=== PATIENT | male | born 1950 | race Caucasian/White ===

== ENCOUNTER → 2017-08-08 | Outpatient (CLI) | payer MEDICARE, MEDICAID ==
--- NOTE | 2017-08-08 12:42 | RADIOLOGY REPORT (SQ) ---
EXAM DESCRIPTION: LUMBAR SPINE 2 VIEWS COMPLETED DATE/TIME: 08/08/2017 10:13 am REASON FOR STUDY: RADICULOPATHY, LUMBAR REGION M54.16 RADICULOPATHY, LUMBAR REGION COMPARISON: None. NUMBER OF VIEWS: Two views. TECHNIQUE: AP and lateral radiographic images acquired of the lumbar spine. LIMITATIONS: None. FINDINGS: MINERALIZATION: Normal. SEGMENTATION: Mild scoliosis. ALIGNMENT: Normal. VERTEBRAE: Maintain height. No fracture is seen. DISCS: Disc spaces are narrowed from L3-S1. Marginal osteophytes are present. POSTERIOR ELEMENTS: There appear to hypertrophic facet changes L3-S1. HARDWARE: None in the spine. PARASPINAL SOFT TISSUES: Normal. PELVIS: Intact as visualized. No fractures or worrisome bone lesions. SI joints intact. OTHER: No other significant finding. IMPRESSION: Multilevel degenerative disc disease, spondylosis, and facet arthropathy. TECHNICAL DOCUMENTATION: JOB ID: [id number] [employer]- All Rights Reserved
== END ==
LOC: OD 09:55
PROVIDERS: ATTEND Specialist
DX: M54.16 Radiculopathy, lumbar region (principal)
CPT/HCPCS: 72100

== ENCOUNTER 2017-08-18 14:12 | Inpatient (IN) | payer MEDICARE, MEDICAID ==
[2017-08-18] MEDS ORDERED: NORMAL SALINE 1000 ML 1,000 ML IV ONE ×2 (14:42→17:36)
--- NOTE | 2017-08-18 15:16 | RADIOLOGY REPORT (SQ) ---
EXAM DESCRIPTION: CHEST SINGLE VIEW COMPLETED DATE/TIME: 08/18/2017 3:06 pm REASON FOR STUDY: SOB COMPARISON: 01/07/2010. EXAM PARAMETERS: NUMBER OF VIEWS: One view. TECHNIQUE: Single frontal radiographic view of the chest acquired. RADIATION DOSE: NA LIMITATIONS: None. FINDINGS: LUNGS AND PLEURA: No opacities, masses or pneumothorax. No pleural effusion. MEDIASTINUM AND HILAR STRUCTURES: No masses. Contour normal. HEART AND VASCULAR STRUCTURES: Heart normal in size. Normal vasculature. BONES: No acute findings. HARDWARE: None in the chest. OTHER: No other significant finding. IMPRESSION: NO ACUTE RADIOGRAPHIC FINDING IN THE CHEST. TECHNICAL DOCUMENTATION: JOB ID: [id number]
[2017-08-18 15:24] LABS: ABSOLUTE BASOPHILS # (AUTO) 0.1 10^3/uL (0.0-0.2); ABSOLUTE MONOCYTES (AUTO) 0.9 10^3/uL (0.1-1.4); ABSOLUTE NEUT (AUTO) 6.5 10^3/uL (1.7-8.2); BASOPHILS % (AUTO) 1.1 % (0-2); EOSINOPHILS % (AUTO) 0.3 % (0-6); HEMATOCRIT 36.3 % (37.9-51.0); HEMOGLOBIN 12.4 g/dL (13.5-17.0); HGB HCT DIFFERENCE 0.9; LYMPHOCYTES % (AUTO) 11.5 % (13-45); MEAN CORPUSCULAR HEMOGLOBIN 28.7 pg (27.0-33.4); MEAN CORPUSCULAR HGB CONC 34.1 g/dL (32.0-36.0); MEAN CORPUSCULAR VOLUME 84 fl (80-97); MONOCYTES % (AUTO) 10.4 % (3-13); RED BLOOD COUNT 4.31 10^6/uL (4.35-5.55); RED CELL DISTRIBUTION WIDTH 16.6 % (11.5-14.0); SEGMENTED NEUTROPHILS % (AUTO) 76.7 % (42-78); WHITE BLOOD COUNT 8.4 10^3/uL (4.0-10.5)
[2017-08-18 15:33] LABS: ALANINE AMINOTRANSFERASE 58 U/L (21-72); ALBUMIN 3.7 g/dL (3.5-5.0); ALKALINE PHOSPHATASE 104 U/L (38-126); ANION GAP 15 (5-19); ASPARTATE AMINO TRANSFERASE 110 U/L (17-59); BILIRUBIN,DIRECT 0.7 mg/dL (0.0-0.4); BILIRUBIN,TOTAL 0.8 mg/dL (0.2-1.3); BLOOD UREA NITROGEN 61 mg/dL (7-20); CARBON DIOXIDE 20 mmol/L (22-30); CHLORIDE 101 mmol/L (98-107); CREATINE KINASE 37 U/L (55-170); CREATININE RESULT 4.76 mg/dL (0.52-1.25); GLUCOSE 63 mg/dL (75-110); LIPASE 94.5 U/L (23-300); SODIUM 135.6 mmol/L (137-145)
[2017-08-18 15:36] LABS: POTASSIUM 6.8 mmol/L (3.6-5.0)
[2017-08-18] MEDS ORDERED: CALCIUM GLUCONATE 1000 MG/10 ML INJ IV ONE (15:43)
[2017-08-18] MEDS ORDERED: ALBUTEROL SULFATE 0.083% NEB 2.5 MG/3 ML AMPUL NEB ONE (15:44)
--- NOTE | 2017-08-18 15:45 | ER Document Report ---
ED General - General Chief Complaint: Weakness Stated Complaint: WEAKNESS Time Seen by Provider: 08/18/17 14:40 Notes: Patient is a 66-year-old male, past medical history Hep C, presents with generalized weakness and shortness of breath over the past several days. He had spinal surgery about 1 month ago on his lumbar spine at an outside hospital. Since then, he noticed right leg swelling. He has not been eating or drinking much over the past few days because "water does not taste good." He follows with Dr. Moody for his liver and has an appointment tomorrow to discuss ascites management. He denies fevers, rash, nausea, vomiting, flank pain, chest pain, headache, neck stiffness, change in bowel or bladder, focal weakness, focal numbness or increased abdominal pain. TRAVEL OUTSIDE OF THE [place] IN LAST 30 DAYS: No - Related Data Allergies/Adverse Reactions: No Known Allergies Allergy (Verified 08/18/17 14:22) Home Medications: Current Home Medications Atorvastatin Calcium [Lipitor 10 mg Tablet] 10 mg PO QHS 08/18/17 [History] Cyclobenzaprine HCl [Flexeril 10 mg Tablet] 10 mg PO QHS 08/18/17 [History] Fentanyl [Duragesic 50 Mcg/Hr Transdermal Patch] 1 each TD Q3D 08/18/17 [History ] Insulin Glargine,Hum.rec.anlog [Lantus Insulin Inj 300 Unit/3 ml Pen] 23 unit SUBCUT QHS 08/18/17 [History] Lisinopril [Prinivil] 20 mg PO Q12 08/18/17 [History] Metformin HCl [Metformin HCl ER] 1,000 mg PO BIDACBS 08/18/17 [History] Milk Thistle 2,000 mg PO DAILY 08/18/17 [History] Multivitamin [Tab-A-Za] 1 tab PO DAILY 08/18/17 [History] Omeprazole Magnesium [Prilosec Otc] 20 mg PO DAILY 08/18/17 [History] Oxycodone HCl [Oxy-Ir 5 mg Tablet] 5 mg PO BID@1400,2200 08/18/17 [History] Oxycodone HCl [Oxy-Ir 5 mg Tablet] 10 mg PO DAILY 08/18/17 [History] Tiotropium [place] [Spiriva Handihaler 5 Cap/Kit (18 Mcg/Cap)] 1 cap IH DAILY [History] Past Medical History - General Information source: Patient - Social History Smoking Status: Unknown if Ever Smoked Family History: Reviewed & Not Pertinent - Past Medical History Cardiac Medical History: Reports: Hx DVT, Hx Hypertension Denies: Hx Coronary Artery Disease, Hx Heart Attack Pulmonary Medical History: Reports: Hx COPD Denies: Hx Asthma, Hx Bronchitis, Hx Pneumonia Neurological Medical History: Denies: Hx Cerebrovascular Accident, Hx Seizures Renal/ Medical History: Denies: Hx Peritoneal Dialysis Musculoskeltal Medical History: Reports Hx Arthritis - knees/hands Past Surgical History: Denies: Hx Pacemaker - Immunizations Hx Diphtheria, Pertussis, Tetanus Vaccination: Yes Review of Systems - Review of Systems Notes: REVIEW OF SYSTEMS: CONSTITUTIONAL: -fevers, -chills EENT: -eye pain, -difficulty swallowing, -nasal congestion CARDIOVASCULAR: -chest pain, -syncope. RESPIRATORY: -cough, -SOB GASTROINTESTINAL: -abdominal pain, -nausea, -vomiting, -diarrhea GENITOURINARY: -dysuria, -hematuria MUSCULOSKELETAL: -back pain, -neck pain SKIN: -rash or skin lesions. HEMATOLOGIC: -easy bruising or bleeding. LYMPHATIC: -swollen, enlarged glands. NEUROLOGICAL: -altered mental status or loss of consciousness, -headache, - neurologic symptoms PSYCHIATRIC: -anxiety, -depression. ALL OTHER SYSTEMS REVIEWED AND NEGATIVE. Physical Exam - Vital signs Vitals: Resp BP Pulse Ox 18 70/43 L 94 08/18/17 15:01 08/18/17 15:01 08/18/17 15:01 - Notes Notes: PHYSICAL EXAMINATION: GENERAL: Well-appearing, well-nourished and in no acute distress. HEAD: Atraumatic, normocephalic. EYES: Pupils equal round and reactive to light, extraocular movements intact, sclera anicteric, conjunctiva are normal. ENT: nares patent, oropharynx clear without exudates. Moist mucous membranes. NECK: Normal range of motion, supple without lymphadenopathy LUNGS: Breath sounds clear to auscultation bilaterally and equal. No wheezes rales or rhonchi. HEART: Tachycardia ABDOMEN: Soft, ascites, non-tender, normoactive bowel sounds. No guarding, no rebound. No masses appreciated. EXTREMITIES: Normal range of motion, no pitting or edema. No cyanosis. NEUROLOGICAL: Cranial nerves grossly intact. Normal speech, normal gait. Normal sensory and motor exams. PSYCH: Normal mood, normal affect. SKIN: Warm, Dry, normal turgor, no rashes or lesions noted. Course - Re-evaluation Re-evalutation: Patient initially hypotensive, tachycardic on triage. With recent surgery, RLE US ordered, which is negative for DVT. Patient is in acute renal failure with creatinine quadrupled from prior value and potassium 6.8. No EKG changes due to the hyperkalemia. He is also slightly hypoglycemia and he was fed. Provided him with IV fluids, calcium, bicarb and albuterol and renal US obtained. V/Q scan also obtained due to high suspicion for PE and elevated creatinine, which did not show evidence of PE. Suspect a component of his MICHEAL may be prerenal from his dehydration and not eating or drinking much over the past few days. With his liver issues, there may also be a component of hepatorenal syndrome. 08/18/17 17:[address] Lazaro (Sexual Assault Response Coordinator) about MICHEAL. She recommends continuing management and IVF. No further recommendations at this time. 08/18/17 18:[address] oBoth and she will admit patient as Inpatient to IMCU. - Vital Signs Vital signs: Temp Pulse Resp BP Pulse Ox 15 86/57 L 93 08/18/17 18:01 08/18/17 18:01 08/18/17 18:01 - Laboratory Result Diagrams: 08/18/17 14:57 08/18/17 14:57 Laboratory results interpreted by me: 08/18/17 08/18/17 08/18/17 14:57 14:57 14:57 RBC 4.31 L Hgb 12.4 L Hct 36.3 L RDW 16.6 H Lymphocytes % 11.5 L VBG pCO2 33.0 L VBG HCO3 18.1 L Sodium 135.6 L Potassium 6.8 H* Carbon Dioxide 20 L BUN 61 H Creatinine 4.76 H Est GFR ( Amer) 15 L Est GFR (Non-Af Amer) 12 L Glucose 63 L Direct Bilirubin 0.7 H AST 110 H Creatine Kinase 37 L Total Protein 6.0 L - Diagnostic Test Radiology reviewed: Image reviewed, Reports reviewed Radiology results interpreted by me: CXR: NAD RLE US: No DVT V/Q scan: low probability for PE Renal US: - EKG Interpretation by Me EKG shows normal: Sinus rhythm, [place], Intervals, QRS Complexes, ST-T Waves Rate: Tachycardia Discharge - Discharge Clinical Impression: MICHEAL (acute kidney injury), Hyperkalemia Condition: Serious Disposition: ADMITTED INPATIENT Admitting Provider: Hospitalist [facility] Admitted: IMCU Referrals: ANA LICEA MD [Primary Care Provider] - Follow up as needed
[2017-08-18 15:47] LABS: TROPONIN I < 0.012 ng/mL
[2017-08-18 16:13] LABS: VENOUS BLOOD BASE EXCESS -6.4 mmol/L; VENOUS BLOOD HCO3 18.1 mmol/L (20-32); VENOUS BLOOD PH 7.36 (7.30-7.42)
--- NOTE | 2017-08-18 16:40 | XCELERA REPORT ---
[address] [address] Lower Extremity Venous Evaluation Name: BRENDANMICHELLE LAW Age: 66 yrs Gender: Male : 1950 Patient Status: Emergency Patient Location: ER Study Date: 08/18/2017 03:08 PM Procedure: Color flow and duplex imaging of the veins of the right lower extremity as well as the left Common Femoral vein. Reason For Study: RLE swelling Ordering Physician: ADOLPH KONG Performed By: Michelle He Right Sided Venous Evaluation Normal vessel filling wall to wall, compression and augmentation as well as Colour flow down to the infrageniculate veins. Left Sided Venous Evaluation The left common femoral vein is fully compressible. Spontaneous and phasic flow is present in the left common femoral vein. Interpretation Summary No duplex evidence of DVT or obstruction in the right lower extremity nor in the left Common Femoral vein. : ADOLPH KONG > Elijah Mei
--- NOTE | 2017-08-18 16:54 | RADIOLOGY REPORT (SQ) ---
EXAM DESCRIPTION: NM LUNG PERFUSION SCAN COMPLETED DATE/TIME: 08/18/2017 4:44 pm REASON FOR STUDY: hypoxia, tachycardia, hypotension COMPARISON: None. RADIONUCLIDE AND DOSE: 5 millicuries TC-99m MAA The route of agent administration: Intravenous TECHNIQUE: Eight views of the lungs acquired following injection of MAA. LIMITATIONS: None. FINDINGS: PERFUSION: Perfusion images with normal homogenous activity and no wedge-shaped or segment al defects. OTHER: No other significant finding. IMPRESSION: There is a low probability of pulmonary embolus. TECHNICAL DOCUMENTATION: JOB ID: [id number] [employer]- All Rights Reserved
--- NOTE | 2017-08-18 17:44 | RADIOLOGY REPORT (SQ) ---
EXAM DESCRIPTION: U/S RETROPERITON (RENAL/AORTA) COMPLETED DATE/TIME: 08/18/2017 5:35 pm REASON FOR STUDY: MICHEAL COMPARISON: None. TECHNIQUE: Dynamic and static grayscale images acquired of the kidneys and bladder and recorded on P ACS. Additional selected color Doppler and spectral images recorded. LIMITATIONS: Study is limited somewhat due to the patient's body habitus. FINDINGS: RIGHT KIDNEY: 12.1 cm in length. Normal echogenicity. No solid or suspicious masses. No hydronephrosis. No calcifications. LEFT KIDNEY: 12 cm in length. Normal echogenicity. No solid or suspicious masses. No hydroneph rosis. No calcifications. BLADDER: There is a questionable hypoechoic area in the bladder of uncertain etiology or significance . OTHER FINDINGS: Pelvic ascitic fluid is identified. IMPRESSION: No significant renal abnormalities were identified. Pelvic ascitic fluid is identified. Other findings as noted above TECHNICAL DOCUMENTATION: JOB ID: [id number] [employer]- All Rights Reserved
[2017-08-18] MEDS ORDERED: DEXTROSE 50%-WATER 25 GM/50 ML DISP.SYRIN IV ONE (18:30)
[2017-08-18] MEDS ORDERED: SODIUM BICARBONATE 8.4% INJ 50 MEQ/50 ML DISP.SYRIN IV ONE (18:30)
[2017-08-18] MEDS ORDERED: LIDOCAINE 2% URO-JET 5 ML KIT MM ONE (18:30)
[2017-08-18] MEDS ORDERED: LEVALBUTEROL HCL NEB 1.25 MG/3 ML AMPUL NEB PRN (18:53)
[2017-08-18] MEDS ORDERED: NORMAL SALINE 1000 ML 2,000 ML IV ONE (19:00)
[2017-08-18] MEDS ORDERED: FENTANYL 50 MCG/HR PATCH.TD72 TD SCH (19:00)
[2017-08-18] MEDS ORDERED: INSULIN LISPRO 100 UNIT/ML 3 ML VIAL SUBCUT PRN (19:29)
[2017-08-18] MEDS ORDERED: GLUCAGON,HUMAN RECOMB 1 MG INJ IM PRN (19:29)
[2017-08-18] MEDS ORDERED: DEXTROSE 50%-WATER 25 GM/50 ML DISP.SYRIN IV PRN ×2 (19:29)
[2017-08-18] MEDS ORDERED: DEXTROSE 40% GEL 15 GM TUBE PO PRN ×2 (19:29)
[2017-08-18] MEDS ORDERED: CEFTRIAXONE 2 GM/D5W RTU 2 GM/50 ML RTUPB IV SCH (20:00)
[2017-08-18] MEDS: IPRATROPIUM/ALBUTEROL 0.5-2.5 MG/3 ML AMPUL NEB SCH (20:26)
[2017-08-18] MEDS ORDERED: SODIUM POLYSTYRENE SULFONATE 15 GM/60 ML PO ONE (20:30)
[2017-08-18] MEDS: ALBUMIN HUMAN 50 ML IV SCH ×3 (20:30→23:18)
[2017-08-18] MEDS: NORMAL SALINE 1000 ML 1,000 ML IV PRN (20:31)
--- NOTE | 2017-08-18 20:32 | HISTORY AND PHYSICAL E ---
History and Physical NAME: MICHELLE CARDONA : 1950 AGE: 66Y ADMITTED: 08/18/2017 ROOM: ED16 CHIEF COMPLAINT: Shortness of breath and weakness. HISTORY OF PRESENT ILLNESS: The patient is a 66-year-old male with a history of hepatitis C, hypertension, chronic back pain, diabetes mellitus, who recently had back surgery on July 04. The patient did have a minor complication of his back surgery where he had a spinal fluid leak. However, upon discharge from the hospital, his reports he was doing well for approximately 1 to 2 weeks, but over the last several weeks he has not been eating or drinking very well. He reports that he has been having emesis even with taking his medications. He reports that he has been having loose stool yesterday that was yellow without hematochezia or melena. He denies any hemoptysis or hematemesis. He reports subjective fever and chills and that he has had a cough productive of brown sputum. The patient is found to be hypotensive in the emergency department with a blood pressure of 70/43 with a creatinine of 4.76 and a potassium of 6.8. The patient underwent ultrasound of his right lower extremity in the emergency department which revealed no DVT, a VQ scan which revealed low probability for PE, a chest x-ray which revealed nothing acute, and a renal ultrasound which revealed ascites and a questionable area of hypoechoic area in his bladder of undetermined significance. A Moreno catheter was placed in his bladder which returned over 400 mL of tea-colored urine. The patient is referred to the hospitalist service for admission. PAST MEDICAL HISTORY: The patient's past medical history is significant for: 1. Hepatitis C. 2. Hypertension. 3. Chronic back pain. 4. Neuropathy. 5. Insulin-dependent diabetes mellitus. 6. 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 PAST SURGICAL HISTORY: His past surgical history is extensive and includes: 1. Back surgeries x2. 2. Rotator cuff repair. 3. Hernia x3. 4. Appendectomy. 5. Neck fusion. 6. 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 The patient had a portion of his clavicle removed for the chest surgery for the osteomyelitis. SOCIAL HISTORY: He quit smoking on May 25, but he was a pack per day smoker for more than 40 years. He currently does not drink any alcohol, and he does not use illicit drugs. FAMILY HISTORY: His mother of breast cancer. His father had diabetes mellitus. ALLERGIES: He has no known drug allergies. CODE STATUS: His code status is FULL CODE. His is his surrogate decision maker. MEDICATIONS: The patient's home medications include: 1. Fentanyl patch. 2. Lipitor. 3. Lisinopril. 4. Metformin. 5. Oxycodone. 6. Spiriva. 7. Flexeril. 8. Multivitamin. 9. Lantus. REVIEW OF SYSTEMS: CONSTITUTIONAL: He admits to subjective fevers and chills. He denies weight loss, weight gain, or headache. HEENT: He denies eye pain, difficulty swallowing, or nasal congestion. CARDIOVASCULAR: He denies chest pain or syncope. He admits to lower extremity edema. RESPIRATORY: He admits to occasional cough and admits to shortness of breath. GASTROINTESTINAL: He admits to abdominal pain, nausea, vomiting, and diarrhea. He denies constipation. GENITOURINARY: He denies difficulty with urination. MUSCULOSKELETAL: He admits to chronic neck and back pain. SKIN: He denies any rashes or lesions. HEMATOLOGY: He denies easy bleeding or bruising. LYMPHATIC: He denies swollen or enlarged lymph glands. NEUROLOGIC: He denies weakness, numbness, dizziness, dysphagia, dysarthria, or ataxia. PSYCHIATRIC: He denies depression or anxiety. PHYSICAL EXAMINATION: VITAL SIGNS: The patient's temperature is not recorded. His pulse is 116. His blood pressure is 89/52. Respiratory rate of 12. Saturation 94% on room air. GENERAL: The patient is awake, alert, and oriented x3. He is appropriate. He is answering questions appropriately. He is acutely and chronically ill appearing and pale. HEENT: He is atraumatic/normocephalic. His pupils are equal, round, and reactive to light and accommodation. His extraocular movements are intact. He has no icterus. His mucosa is dry. NECK: His neck is supple. His trachea is midline. He has no lymphadenopathy. He has no carotid bruit. CHEST: Reveals a chest-wall deformity and clavicular step-off on the left. PULMONARY: Examination is clear to auscultation bilaterally with prolonged expiratory phase. No wheezing, rhonchi, rales are noted. CARDIOVASCULAR: Regular rate and rhythm without appreciable murmur, rub, or gallop. ABDOMEN: Protuberant but soft. He has gross ascites as well as caput medusae. His abdomen is diffusely tender to palpation without rebound, rigidity, or guarding. GENITOURINARY: The patient has normal male external genitalia, and Moreno catheter in place is draining tea-colored urine. RECTAL: Examination is deferred. MUSCULOSKELETAL: Examination reveals no joint swelling or deformity. The patient's musculature in his left lower extremity is significantly smaller than in the right secondary to prior partial paralysis from surgery. VASCULAR: The patient's greater than is greater than 10 seconds, and he has 1+ pulses bilaterally. EXTREMITIES: Reveal no cyanosis. He has 1+ bilateral lower extremity edema and mild clubbing. NEUROLOGIC: The patient is awake, alert, and oriented x3. His cranial nerves are grossly intact without focal deficits. PSYCHIATRIC: He is awake, alert, and appropriate. He has normal mood and affect. DIAGNOSTIC DATA: Laboratory values are as follows: Sodium of 136, potassium of 6.8, chloride of 101, CO2 of 20, BUN of 51, creatinine of 4.7, glucose is 63, lactate of 1.4, calcium of 10, total bilirubin 0.8, direct of 0, AST of 110, ALT of 58, alkaline phosphatase is 104, CK of 37, troponin of less than 0.012, proBNP of 212, total protein is 6, albumin of 3.7, lipase of 94.5. VBG reveals a pH of 7.36, pCO2 of 33, and a bicarbonate of 18. White count of 8.4, hemoglobin of 12.4, hematocrit of 36.3, and platelets of 386,000. IMPRESSION: This is a 66-year-old man with: 1. Acute renal failure. 2. Hyperkalemia. 3. Anemia. 4. Metabolic acidosis. 5. Hypotension. 6. Diabetes mellitus. 7. Cirrhosis secondary to hepatitis C. 8. Chest opiate dependence. 9. Possible SBP. 10. Possible pneumonia. 11. Obesity. PLAN: 1. For patient's acute renal failure, at this time this is likely secondary to intravascular volume depletion. We will consult Dr. Lazaro as there is concern for hepatorenal syndrome in this patient. We will aggressively hydrate patient as tolerated and repeat his BMP. The patient has already received calcium gluconate. We will give the patient sodium bicarbonate and Kayexalate. The patient was also found to be hypoglycemic on admission. We will give him D50 at this time. The patient has also received albuterol breathing treatment. We will repeat his BNP at 10 o'clock. 2. For patient's possible sepsis, my concern here is that this patient is hypotensive, tachycardic, and reports symptoms of fevers and chills, albeit subjective, along with a cough productive of brown sputum. He also reports significant abdominal tenderness. Will cover patient for both healthcare-associated pneumonia and SBP with Rocephin and Zyvox. Obtain blood, urine, and sputum cultures and monitor patient's improvement in symptomatology. 3. For his cirrhosis, we will consult Dr. Holloway, who is his primary GI physician and consider paracentesis tomorrow if tolerated. We will obtain a PT/INR to assess patient's synthetic function. 4. For his hyperkalemia, he has been given Kayexalate, and we will repeat his labs. We will monitor him on telemetry. 5. For his DVT prophylaxis, he will receive heparin. 6. For GI prophylaxis, he will receive Prevacid. 7. For his code status, again he is a FULL CODE, and his is his surrogate decision maker. Total time spent with patient including physical examination, coordination of care, discussion with patient, and formulation of this plan was 45 minutes of Critical Care Time. DICTATING PHYSICIAN: JOSSUE WRIGHT M.D. [id number] PHY#: [id number] ID: [id number] JOB#: [id number] ACCT: [id number] cc:JOSSUE WRIGHT M.D. > MTDD
[2017-08-18] MEDS: DEXTROSE 5%-WATER 250 ML with NOREPINEPHRINE BITARTRATE 4 MG IV PRN ×2 (21:37)
[2017-08-18] MEDS: GUAIFENESIN 600 MG TABLET.SA PO SCH (21:38)
[2017-08-18] MEDS: ACETAMINOPHEN 325 MG TABLET PO PRN (21:39)
[2017-08-18] MEDS: PIPERACILLIN SODIUM/TAZOBACTAM 2.25 GM in NORMAL SALINE 50 ML IV SCH (21:39)
[2017-08-18] MEDS: HEPARIN SOD (PORCINE) 5,000 UNIT/ML 1 ML SYRINGE SUBCUT SCH (21:43)
[2017-08-18 22:05] LABS: ANION GAP 11 (5-19); BLOOD UREA NITROGEN 59 mg/dL (7-20); CALCIUM 8.8 mg/dL (8.4-10.2); CARBON DIOXIDE 18 mmol/L (22-30); CHLORIDE 107 mmol/L (98-107); CREATININE RESULT 4.31 mg/dL (0.52-1.25); GLUCOSE 94 mg/dL (75-110); SODIUM 136.1 mmol/L (137-145)
[2017-08-18] MEDS: LINEZOLID 600 MG TABLET PO SCH (22:17)
[2017-08-18 22:21] LABS: POTASSIUM 4.9 mmol/L (3.6-5.0)
[2017-08-18 22:49] LABS: APPEARANCE,URINE CLOUDY; BILIRUBIN,URINE NEGATIVE (NEGATIVE); GLUCOSE, URINE NEGATIVE (NEGATIVE); KETONES,URINE NEGATIVE (NEGATIVE); LEUKOCYTE ESTERASE,URINE NEGATIVE (NEGATIVE); NITRITE,URINE NEGATIVE (NEGATIVE); PROTEIN,URINE NEGATIVE (NEGATIVE); URINE SPECIFIC GRAVITY 1.023
--- NOTE | 2017-08-18 23:05 | Operative Report ---
Operative Report DATE OF SURGERY: 08/18/17 PREOPERATIVE DIAGNOSIS: Hyperkalemia critical need for central venous access POSTOPERATIVE DIAGNOSIS: Same OPERATION: Right subclavian triple-lumen central venous catheter placement SURGEON: JACEK BOOTHE ANESTHESIA: Local TISSUE REMOVED OR ALTERED: None COMPLICATIONS: None ESTIMATED BLOOD LOSS: Minimal INTRAOPERATIVE FINDINGS: None PROCEDURE: Informed consent was obtained. Procedure was done at the patient's bedside. Patient's right chest and neck were prepped and draped in usual sterile fashion. Local anesthetic was administered. The right subclavian vein was entered without difficulty and guidewire was placed. Triple-lumen central venous catheter was placed via the Seldinger technique. It withdrew blood and flushed easily. It was sutured in place. Stat portable chest x-ray was ordered. Patient tolerated procedure well with no apparent complications.
--- NOTE | 2017-08-18 23:25 | RADIOLOGY REPORT (SQ) ---
EXAM DESCRIPTION: CHEST SINGLE VIEW COMPLETED DATE/TIME: 08/18/2017 11:08 pm REASON FOR STUDY: Central Line placement COMPARISON: 08/18/2017 EXAM PARAMETERS: NUMBER OF VIEWS: One view. TECHNIQUE: Single frontal radiographic view of the chest acquired. RADIATION DOSE: NA LIMITATIONS: None. FINDINGS: LUNGS AND PLEURA: No opacities, masses or pneumothorax. No pleural effusion. MEDIASTINUM AND HILAR STRUCTURES: No masses. Contour normal. HEART AND VASCULAR STRUCTURES: Heart normal in size. Normal vasculature. BONES: No acute findings. HARDWARE: Central line is seen with its tip at the level of the superior vena cava OTHER: No other significant finding. IMPRESSION: Central line with its tip at the level of the superior vena cava. No pneumothorax is se en. Other findings as noted above TECHNICAL DOCUMENTATION: JOB ID: [id number]
[2017-08-19] MEDS: ALBUMIN HUMAN 50 ML IV SCH ×5 (00:23→16:19)
[2017-08-19] MEDS: IPRATROPIUM/ALBUTEROL 0.5-2.5 MG/3 ML AMPUL NEB SCH ×4 (02:19→19:46)
[2017-08-19 03:52] LABS: ABSOLUTE BASOPHILS # (AUTO) 0.1 10^3/uL (0.0-0.2); ABSOLUTE MONOCYTES (AUTO) 0.8 10^3/uL (0.1-1.4); ABSOLUTE NEUT (AUTO) 4.6 10^3/uL (1.7-8.2); EOSINOPHILS % (AUTO) 0.5 % (0-6); HEMATOCRIT 29.2 % (37.9-51.0); HGB HCT DIFFERENCE 0.2; LYMPHOCYTES % (AUTO) 15.2 % (13-45); MEAN CORPUSCULAR HEMOGLOBIN 28.7 pg (27.0-33.4); MEAN CORPUSCULAR HGB CONC 33.7 g/dL (32.0-36.0); MEAN CORPUSCULAR VOLUME 85 fl (80-97); MONOCYTES % (AUTO) 12.4 % (3-13); RED BLOOD COUNT 3.43 10^6/uL (4.35-5.55); RED CELL DISTRIBUTION WIDTH 16.6 % (11.5-14.0); SEGMENTED NEUTROPHILS % (AUTO) 70.9 % (42-78); WHITE BLOOD COUNT 6.5 10^3/uL (4.0-10.5)
[2017-08-19 03:53] LABS: HEMOGLOBIN 9.8 g/dL (13.5-17.0)
--- NOTE | 2017-08-19 03:57 | EKG REPORT ---
SEVERITY:- BORDERLINE ECG - SINUS TACHYCARDIA LOW VOLTAGE THROUGHOUT : Confirmed by: Angela Morales MD 19-Aug-2017 03:56:56
[2017-08-19 04:00] LABS: ALANINE AMINOTRANSFERASE 48 U/L (21-72); ALBUMIN 3.1 g/dL (3.5-5.0); ALKALINE PHOSPHATASE 74 U/L (38-126); ANION GAP 12 (5-19); ASPARTATE AMINO TRANSFERASE 79 U/L (17-59); BILIRUBIN,DIRECT 0.6 mg/dL (0.0-0.4); BILIRUBIN,TOTAL 0.7 mg/dL (0.2-1.3); BLOOD UREA NITROGEN 55 mg/dL (7-20); CALCIUM 8.8 mg/dL (8.4-10.2); CARBON DIOXIDE 19 mmol/L (22-30); CHLORIDE 107 mmol/L (98-107); CREATININE RESULT 4.08 mg/dL (0.52-1.25); GLUCOSE 115 mg/dL (75-110); POTASSIUM 5.1 mmol/L (3.6-5.0); SODIUM 137.8 mmol/L (137-145); TOTAL PROTEIN 5.1 g/dL (6.3-8.2)
[2017-08-19] MEDS: NORMAL SALINE 1000 ML 1,000 ML IV PRN ×2 (04:05→11:23)
[2017-08-19] MEDS: HEPARIN SOD (PORCINE) 5,000 UNIT/ML 1 ML SYRINGE SUBCUT SCH (06:24)
[2017-08-19] MEDS: LANSOPRAZOLE 15 MG TAB.RAP.DR PO SCH ×2 (06:24→18:00)
[2017-08-19] MEDS: PIPERACILLIN SODIUM/TAZOBACTAM 2.25 GM in NORMAL SALINE 50 ML IV SCH ×3 (06:25→21:04)
[2017-08-19] MEDS ORDERED: NOREPINEPHRINE BITARTRATE INJ/PF 4 MG/4 ML SDV IV ONE (06:30)
[2017-08-19] MEDS: ACETAMINOPHEN 325 MG TABLET PO PRN (06:52)
[2017-08-19] MEDS ORDERED: LANSOPRAZOLE 15 MG TAB.RAP.DR PO SCH (10:00)
[2017-08-19] MEDS: GUAIFENESIN 600 MG TABLET.SA PO SCH ×2 (10:25→21:03)
[2017-08-19] MEDS: FENTANYL 50 MCG/HR PATCH.TD72 TD SCH (10:25)
[2017-08-19] MEDS: LINEZOLID 600 MG TABLET PO SCH ×2 (10:26→21:04)
[2017-08-19] MEDS: TIOTROPIUM BROMIDE DPI 5 CAP/KIT (18 MCG/CAP) IH SCH (10:26)
[2017-08-19] MEDS ORDERED: LIDOCAINE 1% INJ-PF (10 MG/ML) 30 ML SDV ONE (13:20)
--- NOTE | 2017-08-19 14:21 | RADIOLOGY REPORT (SQ) ---
EXAM DESCRIPTION: U/S ABD PARACENTESIS COMPLETED DATE/TIME: 08/19/2017 2:11 pm REASON FOR STUDY: SBP COMPARISON Bilateral renal ultrasound 08/18/2017 LIMITATIONS: None. PROCEDURE: After obtaining informed consent, the patient was brought to the ultrasound suite. The p rocedure was performed with the patient on a gurney. Ultrasound was used to identify a prominent poc ket of ascites in the right lower quadrant. An appropriate access site was selected. The patient wa s prepped and draped in usual sterile fashion. The access site was anesthetized with 6 mL 1% lidoca ine. A Cfxb-R-Mymrverw needle was advanced into the fluid. After aspiration of fluid the needle, th e catheter was advanced off the needle into the fluid. A total of 5,550 mL of clear straw-colored fl uid was removed. The patient tolerated the procedure well left the department in satisfactory conditi on. Specimens were sent for testing IMPRESSION: Successful ultrasound-guided diagnostic and therapeutic paracentesis COMMENT: Patient medication list reviewed: Yes- Quality ID# [id number]:Eligible professional attests to doc umenting in the medical record they obtained, updated, or reviewed the patient's current medications. Quality ID #76: The patient was prepped and draped using maximum sterile barrier technique including cap, mask, sterile gown, sterile gloves, a large sterile sheet, hand hygiene, and 2% Chlorhexidine fo r cutaneous antisepsis. When ultrasound is used, sterile ultrasound techniques are followed requiring sterile gel and sterile probes. Quality ID #[id number]: Final reports for procedures using fluoroscopy that document radiation exposure farhan tonny, or exposure time and number of fluorographic images (if radiation exposure indices are not avail able) TECHNICAL DOCUMENTATION: JOB ID: [id number] [employer]- All Rights Reserved
[2017-08-19 15:10] LABS: FLUID APPEARANCE CLOUDY; FLUID RBC DILUENT USED SALINE; FLUID RBC DILUTION FACTOR 11; FLUID RBC SIDE 1 48; FLUID RBC SIDE 2 44; TOTAL RBC SQUARES COUNTED FLD 225
[2017-08-19] MEDS: OXYCODONE HCL IR 5 MG TABLET PO PRN ×2 (15:20→21:03)
--- NOTE | 2017-08-19 15:24 | PDOC CONSULTATION ---
Consultation Consult Date: 08/19/17 Attending physician:: JOSSUE WRIGHT Consult reason:: I was asked by Dr. Wright to see the patient because of acute kidney injury. History of Present Illness Admission Date/PCP: 08/18/17 18:53 ANA LICEA MD History of Present Illness: MICHELLE CARDONA is a 66 year old male with history of hepatitis C, hypertension , diabetes mellitus, chronic back pain, who was admitted yesterday because of shortness of breath, weakness in acute renal failure. Patient underwent back surgery in July 04 and did well for a while postoperatively. However for the last 1-2 weeks the patient started to deteriorate starting with very decreased appetite and a salty taste in his mouth. said patient is eating very minimal solids and cannot really drink much fluids because he has this nausea and vomiting. There was also a note of increasing abdominal girth and leg swelling. Patient denies any jaundice, fever nor abdominal pain but there is abdominal discomfort. He has constipation but no diarrhea. Patient related that he had interferon treatment years ago around in 2009 for hepatitis C. He has never had any liver issues since then until now. Patient also noted that starting last week his urine output has greatly diminished and he has dark urine. His urine was noted to be very dark tea colored yesterday in the emergency room. also noted that during the preoperative evaluation for the back surgery patient was noted to have low blood pressure of around 95/42. They did not check his blood pressure at home. Patient has become very weak, very shaky, and progressively has worsening shortness of breath with minimal exertion. Upon presentation patient was found to be very hypotensive with blood pressure of 70/43. Patient was given IV fluid boluses so far as of this point he received about 4 L of IV fluids starting yesterday. His electrolytes and kidney function were also abnormal. His BUN was 61, creatinine 4.76 with estimated GFR of 12, potassium of 6.8, and CO2 of 20. Today he has a BUN of 55 creatinine 4.08 estimated GFR 15 potassium of 5.1 and CO2 of 19. Previous records on December 15, 2015 showed a BUN of 23 and creatinine of 1.01 with estimated GFR of greater than 60. Patient denies any known kidney problems in the past. He denies any history of kidney stones. Urinalysis did not show any proteinuria except for just a small amount of blood significant urobilinogen and significant hyaline casts. Today he just underwent paracentesis just before I started seeing him and they were able to obtain about 5.5 L of ascitic fluid. Patient felt a lot better after the paracentesis. Patient also noted that patient has had lower extremity swelling which is currently much better. Patient is nonoliguric and is making some urine. The urine today is not as dark as was described yesterday. Past Medical History Cardiac Medical History: Reports: Hypertension-primary Pulmonary Medical History: Reports: Chronic Obstructive Pulmonary Disease (COPD) Neurological Medical History: Reports: Other - Left foot drop secondary to previous back surgery Endocrine Medical History: Reports: Diabetes Mellitus Type 2 Complications of Diabetes: Reports: Autonomic Neuropathy GI Medical History: Reports: Other Musculoskeltal Medical History: Reports: Arthritis - knees/hands, Other - Chronic back pain after a work-related injury in 1983 requiring surgeries Psychiatric Medical History: Denies: Depression Infectious Medical History: Reports: Hepatitis C Past Surgical History Past Surgical History: Reports: Appendectomy, Herniorrhaphy - 3 times, Orthopedic Surgery - Left rotator cuff surgery, neck fusion, chest surgery due to osteomyelitis, Other - Back surgeries 7 Social History Information Source: Patient Lives with: Spouse/Significant other Smoking Status: Former Smoker - [id number] history of smoking Frequency of Alcohol Use: None Hx Recreational Drug Use: No Family History Family History: DM - Father, End Stage Renal Disease - Brother who was on dialysis, Malignancy - Mother of breast cancer, liver cancer on his father , lung cancer in his brother Parental Family History Reviewed: Yes Children Family History Reviewed: Yes Sibling(s) Family History Reviewed.: Yes Medication/Allergy Home Medications: Atorvastatin Calcium [Lipitor 10 mg Tablet] 10 mg PO QHS 08/18/17 Cyclobenzaprine HCl [Flexeril 10 mg Tablet] 10 mg PO QHS 08/18/17 Fentanyl [Duragesic 50 Mcg/Hr Transdermal Patch] 1 each TD Q3D 08/18/17 Insulin Glargine,Hum.rec.anlog [Lantus Insulin Inj 300 Unit/3 ml Pen] 23 unit SUBCUT QHS 08/18/17 Lisinopril [Prinivil] 20 mg PO Q12 08/18/17 Metformin HCl [Metformin HCl ER] 1,000 mg PO BIDACBS 08/18/17 Milk Thistle 2,000 mg PO DAILY 08/18/17 Multivitamin [Tab-A-Za] 1 tab PO DAILY 08/18/17 Omeprazole Magnesium [Prilosec Otc] 20 mg PO DAILY 08/18/17 Oxycodone HCl [Oxy-Ir 5 mg Tablet] 5 mg PO BID@1400,2200 08/18/17 Oxycodone HCl [Oxy-Ir 5 mg Tablet] 10 mg PO DAILY 08/18/17 Tiotropium Lowry [Spiriva Handihaler 5 Cap/Kit (18 Mcg/Cap)] 1 cap IH DAILY Allergies/Adverse Reactions: No Known Allergies Allergy (Verified 08/18/17 14:22) Review of Systems All systems: reviewed and no additional remarkable complaints except as stated Review of Systems: Constitutional: ABSENT: chills, fatigue, fever(s), headache(s), weight gain, weight loss; admits anorexia and poor appetite Eyes: ABSENT: visual disturbances Ears: ABSENT: hearing changes Cardiovascular: ABSENT: chest pain, orthropnea, palpitations; admits dyspnea on exertion and at rest and lower extremity edema Respiratory: ABSENT: cough, dyspnea, hemoptysis Gastrointestinal: ABSENT: abdominal pain, diarrhea, hematemesis, hematochezia; admits nausea, vomiting and constipation Genitourinary: ABSENT: dysuria, hematuria; admits decreased urine output Musculoskeletal: ABSENT: joint swelling Integumentary: ABSENT: rash, wounds Neurological: ABSENT: abnormal gait, abnormal speech, confusion, dizziness, focal weakness, numbness, syncope Psychiatric: ABSENT: anxiety, depression Endocrine: ABSENT: cold intolerance, heat intolerance, polydipsia, polyuria Hematologic/Lymphatic: ABSENT: easy bleeding, easy bruising, lymphadenopathy Physical Exam Vital Signs: Temp Pulse Resp BP Pulse Ox 97.9 F 96 11 L 118/67 96 08/19/17 14:00 08/19/17 14:15 08/19/17 14:19 08/19/17 14:19 08/19/17 14:19 Intake & Output 08/18/17 08/19/17 08/20/17 06:59 06:59 06:59 Intake Total 1742 Output Total 680 305 Balance 1062 -305 Weight 106.6 kg Exam: General appearance: no acute distress, cooperative, well-developed, well- nourished Head exam: PRESENT: atraumatic, normocephalic Eye exam: PRESENT: Conjunctiva pale, EOMI, PERRLA. ABSENT: conjunctival injection, scleral icterus Mouth exam: PRESENT: moist, neck supple, tongue midline Neck exam: PRESENT: full ROM. ABSENT: carotid bruit, JVD, lymphadenopathy, thyromegaly Respiratory exam: PRESENT: Slightly coarse breath sound auscultation bilaterally. ABSENT: rales, rhonchi, stridor, wheezes Cardiovascular exam: PRESENT: RRR, +S1, +S2. ABSENT: systolic murmur Pulses: PRESENT: normal radial pulses, normal dorsalis pedis pulses GI/Abdominal exam: PRESENT: normal bowel sounds, soft. Positive abdominal distention which is improved after paracentesis, there is a palpable epigastric mass which could either be a lobe of the liver ABSENT: guarding, tenderness Rectal exam: deferred Extremities exam: PRESENT: full ROM. ABSENT: calf tenderness, pedal edema Musculoskeletal: PRESENT: full ROM. ABSENT: deformity Neurological exam: PRESENT: alert, Awake, Oriented to person, Oriented to place , Oriented to time, reflexes normal, CN II-XII grossly intact. Positive left foot drop ABSENT: motor sensory deficit Psychiatric exam: PRESENT: appropriate affect, normal mood. ABSENT: homicidal ideation, suicidal ideation Skin exam: PRESENT: intact, dry, warm. ABSENT: rash Results Laboratory Results: 08/19/17 03:35 08/19/17 03:35 08/18/17 08/18/17 08/19/17 21:35 21:35 03:35 WBC 6.5 RBC 3.43 L Hgb 9.8 L D Hct 29.2 L MCV 85 MCH 28.7 MCHC 33.7 RDW 16.6 H Plt Count 277 Seg Neutrophils % 70.9 Lymphocytes % 15.2 Monocytes % 12.4 Eosinophils % 0.5 Basophils % 1.0 Absolute Neutrophils 4.6 Absolute Lymphocytes 1.0 Absolute Monocytes 0.8 Absolute Eosinophils 0.0 Absolute Basophils 0.1 Sodium 136.1 L Potassium 4.9 D Chloride 107 Carbon Dioxide 18 L Anion Gap 11 BUN 59 H Creatinine 4.31 H Est GFR ( Amer) 17 L Est GFR (Non-Af Amer) 14 L Glucose 94 Calcium 8.8 Total Bilirubin AST ALT Alkaline Phosphatase Total Protein Albumin Blood Type O POSITIVE Antibody Screen NEGATIVE 08/19/17 03:35 WBC RBC Hgb Hct MCV MCH MCHC RDW Plt Count Seg Neutrophils % Lymphocytes % Monocytes % Eosinophils % Basophils % Absolute Neutrophils Absolute Lymphocytes Absolute Monocytes Absolute Eosinophils Absolute Basophils Sodium 137.8 Potassium 5.1 H Chloride 107 Carbon Dioxide 19 L Anion Gap 12 BUN 55 H Creatinine 4.08 H Est GFR ( Amer) 18 L Est GFR (Non-Af Amer) 15 L Glucose 115 H Calcium 8.8 Total Bilirubin 0.7 AST 79 H ALT 48 Alkaline Phosphatase 74 Total Protein 5.1 L Albumin 3.1 L Blood Type Antibody Screen 08/18/17 08/19/17 08/19/17 21:35 03:35 12:33 Troponin I < 0.012 < 0.012 < 0.012 Impressions: Chest X-Ray 08/18/17 14:41 IMPRESSION: NO ACUTE RADIOGRAPHIC FINDING IN THE CHEST. Lung Scan-VQ NM 08/18/17 15:42 IMPRESSION: There is a low probability of pulmonary embolus. Renal Ultrasound 08/18/17 15:44 IMPRESSION: No significant renal abnormalities were identified. Pelvic ascitic fluid is identified. Other findings as noted above Paracentesis Ultrasound 08/19/17 00:00 IMPRESSION: Successful ultrasound-guided diagnostic and therapeutic paracentesis Assessment & Plan - Diagnosis (1) MICHEAL (acute kidney injury) Is this a current diagnosis for this admission?: Yes Plan: Patient does not have any proteinuria with only very small microhematuria and a lot of hyaline casts in the urine. This indicated the patient most likely has initially acute prerenal azotemia due to severe intravascular volume depletion which could have led to acute tubular necrosis associated with severe hypotension. Patient is currently nonoliguric. He is responding well to IV fluids. Agree to continue current IV fluid hydration. Hold any nephrotoxic medications including lisinopril and metformin. Patient does not need any emergent renal replacement therapy at this time. Continuing to monitor kidney function, electrolytes and urine output. (2) Acute renal tubular necrosis Is this a current diagnosis for this admission?: Yes (3) Hyperkalemia Is this a current diagnosis for this admission?: Yes Plan: Improved. (4) Ascites Is this a current diagnosis for this admission?: Yes Plan: Status post paracentesis. Agree with albumin infusion. (5) Hepatitis C Is this a current diagnosis for this admission?: Yes (6) Metabolic acidosis Is this a current diagnosis for this admission?: Yes Plan: This is due to acute kidney injury and partly due to IV fluid hydration. (7) Hypoalbuminemia Is this a current diagnosis for this admission?: Yes Plan: Most likely secondary to his hepatitis C and poor oral intake. (8) Hypotension Is this a current diagnosis for this admission?: Yes Plan: Currently improved with IV fluid hydration. (9) Diabetes mellitus type 2 in nonobese Is this a current diagnosis for this admission?: Yes - Notes Notes: Thank you very much for this consultation. I will follow the patient with you. - Time Time Spent: Greater than 70 Minutes
[2017-08-19 15:52] LABS: PROTHROMBIN TIME 14.6 SEC (11.4-15.4)
[2017-08-19 15:53] LABS: FIBRINOGEN 168 mg/dL (209-497); PARTIAL THROMBOPLASTIN TIME 28.7 SEC (23.5-35.8)
[2017-08-19] MEDS ORDERED: NORMAL SALINE 1000 ML 1,000 ML IV PRN (17:21)
--- NOTE | 2017-08-19 17:46 | PDOC PROGRESS REPORT ---
Subjective Progress Note for:: 08/19/17 Subjective:: Patient seen with and nursing at bedside. He continues to require Levophed to maintain a map greater than 65. This has been slowly titrated down over the course of the evening. He has had a significant increase in his ascites since yesterday. He has had quite minimal urine output. Patient is concerned about his chronic and postoperative pain has his fentanyl patch was removed secondary to hypotension. Patient had multiple loose movements after Kayexalate. Patient denies chest pain, shortness of breath, vomiting, fevers, chills, constipation, headache, new onset weakness. Physical Exam Vital Signs: Temp Pulse Resp BP Pulse Ox 97.7 F 88 13 115/65 94 08/19/17 04:00 08/19/17 02:19 08/19/17 06:43 08/19/17 06:43 08/19/17 06:43 Intake & Output 08/18/17 08/19/17 08/20/17 06:59 06:59 06:59 Intake Total 1742 Output Total 680 Balance 1062 Weight 106.6 kg Exam: General: Chronically ill appearing, Awake alert and oriented x3, mild respiratory distress HEENT: AT/NC, PERRL, EOMI, oropharynx is mostly dry, pink, no scleral icterus, no conjunctival injection Neck: No JVD, trachea midline, +HJR Chest: Anterior chest wall scarring/deformity, diminished bases bilaterally, otherwise no wheezes, rhonchi, rales CV: Regular rate and rhythm, normal S1 and S2, no rub or gallop Abdomen: Soft, nontender to palpation, nondistended, active bowel sounds; no rebound, rigidity, or guarding Extremities: No cyanosis, clubbing; 2+ edema Musculoskeletal: right LE decreased musculature and foot drop (chronic) Neuro: Cranial nerves II through XII are grossly intact without focal deficits; awake alert and oriented x3 Psych: Normal mood and affect Results Laboratory Results: 08/19/17 03:35 08/19/17 03:35 08/18/17 08/18/17 08/19/17 21:35 21:35 03:35 WBC 6.5 RBC 3.43 L Hgb 9.8 L D Hct 29.2 L MCV 85 MCH 28.7 MCHC 33.7 RDW 16.6 H Plt Count 277 Seg Neutrophils % 70.9 Lymphocytes % 15.2 Monocytes % 12.4 Eosinophils % 0.5 Basophils % 1.0 Absolute Neutrophils 4.6 Absolute Lymphocytes 1.0 Absolute Monocytes 0.8 Absolute Eosinophils 0.0 Absolute Basophils 0.1 Sodium 136.1 L Potassium 4.9 D Chloride 107 Carbon Dioxide 18 L Anion Gap 11 BUN 59 H Creatinine 4.31 H Est GFR ( Amer) 17 L Est GFR (Non-Af Amer) 14 L Glucose 94 Calcium 8.8 Total Bilirubin AST ALT Alkaline Phosphatase Total Protein Albumin Blood Type O POSITIVE Antibody Screen NEGATIVE 08/19/17 03:35 WBC RBC Hgb Hct MCV MCH MCHC RDW Plt Count Seg Neutrophils % Lymphocytes % Monocytes % Eosinophils % Basophils % Absolute Neutrophils Absolute Lymphocytes Absolute Monocytes Absolute Eosinophils Absolute Basophils Sodium 137.8 Potassium 5.1 H Chloride 107 Carbon Dioxide 19 L Anion Gap 12 BUN 55 H Creatinine 4.08 H Est GFR ( Amer) 18 L Est GFR (Non-Af Amer) 15 L Glucose 115 H Calcium 8.8 Total Bilirubin 0.7 AST 79 H ALT 48 Alkaline Phosphatase 74 Total Protein 5.1 L Albumin 3.1 L Blood Type Antibody Screen 08/18/17 08/19/17 21:35 03:35 Troponin I < 0.012 < 0.012 Impressions: Chest X-Ray 08/18/17 14:41 IMPRESSION: NO ACUTE RADIOGRAPHIC FINDING IN THE CHEST. Lung Scan-VQ NM 08/18/17 15:42 IMPRESSION: There is a low probability of pulmonary embolus. Renal Ultrasound 08/18/17 15:44 IMPRESSION: No significant renal abnormalities were identified. Pelvic ascitic fluid is identified. Other findings as noted above Assessment & Plan - Diagnosis (1) Septic shock Is this a current diagnosis for this admission?: Yes Plan: Patient with septic shock secondary to SBP and also possibly pneumonia. Continue patient on Zyvox and Zosyn at this time. Patient has one set of blood cultures that are growing gram-positive organisms. Patient underwent paracentesis today of 5.5 L of fluid. He reports his abdomen feels significantly better it is still mildly tender to palpation. Continue to maintain map greater than 65. Central line is in place. (2) SBP (spontaneous bacterial peritonitis) Is this a current diagnosis for this admission?: Yes Plan: Pending culture from paracentesis today. (3) MICHEAL (acute kidney injury) Is this a current diagnosis for this admission?: Yes Plan: Appreciate nephrology input. This is likely secondary to sepsis, but have concern for hepatorenal syndrome. (4) Diabetes mellitus type 2 in nonobese Is this a current diagnosis for this admission?: Yes Plan: Stop metformin. Continue with sliding scale insulin. (5) Hepatitis C Qualifiers: Viral hepatitis chronicity: chronic Hepatic coma status: without hepatic coma Qualified Code(s): B18.2 - Chronic viral hepatitis C Is this a current diagnosis for this admission?: Yes Plan: Patient appears to have cirrhosis with this. (6) Hyperkalemia Is this a current diagnosis for this admission?: Yes Plan: Secondary to acute renal failure. Have soft patient's BILLIE and continue hydration. Continue to monitor his potassium which came down nicely after the demonstration of Kayexalate. (7) Hypoalbuminemia Is this a current diagnosis for this admission?: Yes Plan: Secondary to cirrhosis (8) Metabolic acidosis Is this a current diagnosis for this admission?: Yes Plan: Secondary to renal failure - Time Time Spent with patient: 35 or more minutes Critical Time spent with patient: 35 or more minutes Medications reviewed and adjusted accordingly: Yes
[2017-08-20] MEDS: OXYCODONE HCL IR 5 MG TABLET PO PRN ×4 (01:12→20:05)
[2017-08-20] MEDS ORDERED: LIDOCAINE 5% (700 MG) TRANSDERMAL ADH..PATCH ONE (01:23)
[2017-08-20] MEDS: LIDOCAINE 5% (700 MG) TRANSDERMAL ADH..PATCH TP PRN (01:26)
[2017-08-20] MEDS: IPRATROPIUM/ALBUTEROL 0.5-2.5 MG/3 ML AMPUL NEB SCH ×4 (01:44→20:05)
[2017-08-20 06:19] LABS: ABSOLUTE BASOPHILS # (AUTO) 0.1 10^3/uL (0.0-0.2); ABSOLUTE EOSINOPHILS # (AUTO) 0.2 10^3/uL (0.0-0.6); ABSOLUTE LYMPHOCYTES (AUTO) 0.9 10^3/uL (0.5-4.7); ABSOLUTE MONOCYTES (AUTO) 0.8 10^3/uL (0.1-1.4); ABSOLUTE NEUT (AUTO) 5.7 10^3/uL (1.7-8.2); BASOPHILS % (AUTO) 1.2 % (0-2); EOSINOPHILS % (AUTO) 2.8 % (0-6); HEMATOCRIT 31.6 % (37.9-51.0); HEMOGLOBIN 10.6 g/dL (13.5-17.0); HGB HCT DIFFERENCE 0.2; LYMPHOCYTES % (AUTO) 11.5 % (13-45); MEAN CORPUSCULAR HEMOGLOBIN 28.6 pg (27.0-33.4); MEAN CORPUSCULAR HGB CONC 33.7 g/dL (32.0-36.0); MEAN CORPUSCULAR VOLUME 85 fl (80-97); MONOCYTES % (AUTO) 10.8 % (3-13); RED BLOOD COUNT 3.73 10^6/uL (4.35-5.55); RED CELL DISTRIBUTION WIDTH 16.6 % (11.5-14.0); SEGMENTED NEUTROPHILS % (AUTO) 73.7 % (42-78); WHITE BLOOD COUNT 7.7 10^3/uL (4.0-10.5)
[2017-08-20] MEDS: PIPERACILLIN SODIUM/TAZOBACTAM 2.25 GM in NORMAL SALINE 50 ML IV SCH ×3 (06:24→22:44)
[2017-08-20] MEDS: LANSOPRAZOLE 15 MG TAB.RAP.DR PO SCH ×2 (06:25→16:58)
[2017-08-20 06:39] LABS: ALANINE AMINOTRANSFERASE 30 U/L (21-72); ALBUMIN 2.8 g/dL (3.5-5.0); ALKALINE PHOSPHATASE 62 U/L (38-126); ANION GAP 9 (5-19); ASPARTATE AMINO TRANSFERASE 62 U/L (17-59); BILIRUBIN,DIRECT 0.6 mg/dL (0.0-0.4); BILIRUBIN,TOTAL 0.6 mg/dL (0.2-1.3); BLOOD UREA NITROGEN 46 mg/dL (7-20); CALCIUM 8.7 mg/dL (8.4-10.2); CARBON DIOXIDE 18 mmol/L (22-30); CHLORIDE 109 mmol/L (98-107); CREATININE RESULT 2.95 mg/dL (0.52-1.25); GLUCOSE 91 mg/dL (75-110); MAGNESIUM 1.5 mg/dL (1.6-2.3); POTASSIUM 5.3 mmol/L (3.6-5.0); SODIUM 135.9 mmol/L (137-145); TOTAL PROTEIN 4.6 g/dL (6.3-8.2)
[2017-08-20] MEDS: DEXTROSE 5%-WATER 250 ML with NOREPINEPHRINE BITARTRATE 4 MG IV PRN ×2 (06:46)
[2017-08-20] MEDS ORDERED: LACTULOSE SYRUP 20 GM/30 ML UDCUP PO ONE (07:33)
[2017-08-20] MEDS ORDERED: MAGNESIUM SULFATE/D5W 1 GM/100 ML RTUPB IV ONE (07:34)
--- NOTE | 2017-08-20 08:14 | RADIOLOGY REPORT (SQ) ---
EXAM DESCRIPTION: CHEST SINGLE VIEW COMPLETED DATE/TIME: 08/20/2017 7:42 am REASON FOR STUDY: ?pna COMPARISON: Chest films 10/07/2009, 01/07/2010, 08/18/2017, 08/18/2017 EXAM PARAMETERS: NUMBER OF VIEWS: One view. TECHNIQUE: Single frontal radiographic view of the chest acquired. RADIATION DOSE: NA LIMITATIONS: None. FINDINGS: LUNGS AND PLEURA: Persistent bandlike atelectasis in the right perihilar region. Minimal left retrocardiac bandlike atelectasis. No pleural effusions. No pneumothorax. MEDIASTINUM AND HILAR STRUCTURES: No masses. Contour normal. HEART AND VASCULAR STRUCTURES: Heart normal in size. Normal vasculature. BONES: No acute findings. HARDWARE: Right subclavian central line tip superior vena cava OTHER: No other significant finding. IMPRESSION: Bandlike atelectasis in the right middle lobe and left retrocardiac region similar guillermo red to 08/18/2017 TECHNICAL DOCUMENTATION: JOB ID: [id number]
[2017-08-20] MEDS: GUAIFENESIN 600 MG TABLET.SA PO SCH ×2 (09:35→22:44)
[2017-08-20] MEDS: ALBUMIN HUMAN 50 ML IV SCH ×3 (09:37→13:06)
[2017-08-20] MEDS: LINEZOLID 600 MG TABLET PO SCH ×2 (09:43→22:44)
[2017-08-20] MEDS: TIOTROPIUM BROMIDE DPI 5 CAP/KIT (18 MCG/CAP) IH SCH (09:44)
[2017-08-20 12:02] LABS: FLUID TYPE PERITONEAL
[2017-08-20 12:04] LABS: PATH REVIEW PATHOLOGIST REVIEWED
[2017-08-20] MEDS: NORMAL SALINE 1000 ML 1,000 ML IV PRN ×2 (14:23→22:45)
--- NOTE | 2017-08-20 16:30 | PDOC PROGRESS REPORT ---
Subjective Progress Note for:: 08/20/17 Subjective:: Patient seen with and nursing at bedside. He continues to require Levophed to maintain a map greater than 65. He has had a significant increase in his ascites since yesterday. He has had quite minimal urine output. Patient denies chest pain, shortness of breath, vomiting, fevers, chills, constipation, headache, new onset weakness. Physical Exam Vital Signs: Temp Pulse Resp BP Pulse Ox 97.9 F 90 12 82/61 L 94 08/20/17 04:00 08/20/17 01:45 08/20/17 06:42 08/20/17 06:42 08/20/17 06:42 Intake & Output 08/19/17 08/20/17 08/21/17 06:59 06:59 06:59 Intake Total 1742 3000 Output Total 680 955 Balance 1062 2045 Weight 106.6 kg 104 kg Exam: General: Chronically ill appearing, Awake alert and oriented x3, no acute respiratory distress HEENT: AT/NC, PERRL, EOMI, oropharynx is mostly dry, pink, no scleral icterus, no conjunctival injection Neck: No JVD, trachea midline, +HJR Chest: Anterior chest wall scarring/deformity, clear to auscultation bilaterally CV: Regular rate and rhythm, normal S1 and S2, no rub or gallop Abdomen: Distended, ascites, plus fluid wave, soft, nontender to palpation, active bowel sounds; no rebound, rigidity, or guarding Extremities: No cyanosis, clubbing; 2+ edema Musculoskeletal: right LE decreased musculature and foot drop (chronic) Neuro: Cranial nerves II through XII are grossly intact without focal deficits; awake alert and oriented x3 Psych: Normal mood and affect Results Laboratory Results: 08/20/17 06:00 08/20/17 06:00 08/19/17 08/20/17 08/20/17 13:26 06:00 06:00 WBC 7.7 RBC 3.73 L Hgb 10.6 L Hct 31.6 L MCV 85 MCH 28.6 MCHC 33.7 RDW 16.6 H Plt Count 275 Seg Neutrophils % 73.7 Lymphocytes % 11.5 L Monocytes % 10.8 Eosinophils % 2.8 Basophils % 1.2 Absolute Neutrophils 5.7 Absolute Lymphocytes 0.9 Absolute Monocytes 0.8 Absolute Eosinophils 0.2 Absolute Basophils 0.1 Sodium 135.9 L Potassium 5.3 H Chloride 109 H Carbon Dioxide 18 L Anion Gap 9 BUN 46 H Creatinine 2.95 H Est GFR ( Amer) 26 L Est GFR (Non-Af Amer) 22 L Glucose 91 Calcium 8.7 Phosphorus 4.0 Magnesium 1.5 L Total Bilirubin 0.6 AST 62 H ALT 30 Alkaline Phosphatase 62 Ammonia Total Protein 4.6 L Albumin 2.8 L Fluid Type PLEURAL Fluid Source ASCITES Fluid Color YELLOW Fluid Appearance CLOUDY Fluid Viscosity LIQUID Fluid WBC 02646 Fluid RBC 562 08/20/17 06:20 WBC RBC Hgb Hct MCV MCH MCHC RDW Plt Count Seg Neutrophils % Lymphocytes % Monocytes % Eosinophils % Basophils % Absolute Neutrophils Absolute Lymphocytes Absolute Monocytes Absolute Eosinophils Absolute Basophils Sodium Potassium Chloride Carbon Dioxide Anion Gap BUN Creatinine Est GFR ( Amer) Est GFR (Non-Af Amer) Glucose Calcium Phosphorus Magnesium Total Bilirubin AST ALT Alkaline Phosphatase Ammonia 25.3 Total Protein Albumin Fluid Type Fluid Source Fluid Color Fluid Appearance Fluid Viscosity Fluid WBC Fluid RBC 08/18/17 08/19/17 08/19/17 21:35 03:35 12:33 Creatine Kinase Troponin I < 0.012 < 0.012 < 0.012 08/19/17 18:18 Creatine Kinase 33 L Troponin I Impressions: Lung Scan-VQ NM 08/18/17 15:42 IMPRESSION: There is a low probability of pulmonary embolus. Renal Ultrasound 08/18/17 15:44 IMPRESSION: No significant renal abnormalities were identified. Pelvic ascitic fluid is identified. Other findings as noted above Paracentesis Ultrasound 08/19/17 00:00 IMPRESSION: Successful ultrasound-guided diagnostic and therapeutic paracentesis Assessment & Plan - Diagnosis (1) Septic shock Is this a current diagnosis for this admission?: Yes Plan: Patient with septic shock secondary to SBP and also possibly pneumonia. Continue patient on Zyvox and Zosyn at this time. Patient has one set of blood cultures that are growing gram-positive organisms. Patient continues to require Levophed in order to maintain his Map greater than 65. Patient underwent paracentesis today of 5.5 L of fluid. Central line is in place- [id number]. (2) SBP (spontaneous bacterial peritonitis) Is this a current diagnosis for this admission?: Yes Plan: Pending culture from paracentesis Cytology of patient's ascitic fluid was quite abnormal and has been sent for full cytologic examination. Plan to repeat paracentesis on Tuesday. (3) MICHEAL (acute kidney injury) Is this a current diagnosis for this admission?: Yes Plan: Appreciate nephrology input. This is likely secondary to sepsis, but have concern for hepatorenal syndrome. Improving with IV fluids. 08/18/17 08/19/17 08/20/17 14:57 03:35 06:00 Creatinine 4.76 H 4.08 H 2.95 H (4) Diabetes mellitus type 2 in nonobese Is this a current diagnosis for this admission?: Yes Plan: Doing well with sliding scale insulin. (5) Hepatitis C Qualifiers: Viral hepatitis chronicity: chronic Hepatic coma status: without hepatic coma Qualified Code(s): B18.2 - Chronic viral hepatitis C Is this a current diagnosis for this admission?: Yes Plan: Patient appears to have cirrhosis with this. (6) Hyperkalemia Is this a current diagnosis for this admission?: Yes Plan: Secondary to acute renal failure. Have discontinued patient's BILLIE and continue hydration. We will potentially need repeat Kayexalate administration. Will consider dose of IV Lasix. (7) Hypoalbuminemia Is this a current diagnosis for this admission?: Yes Plan: Secondary to cirrhosis (8) Metabolic acidosis Is this a current diagnosis for this admission?: Yes Plan: Secondary to renal failure (9) Ascites Qualifiers: Ascites type: malignant Qualified Code(s): R18.0 - Malignant ascites Is this a current diagnosis for this admission?: Yes Plan: Patient has ascites possibly secondary to liver disease, but patient's cytology from his paracentesis was quite abnormal and upon review of this with the pathologist she is recommended a repeat specimen for fresh immunologic staining. We will do this on Tuesday. - Time Critical Time spent with patient: 25-34 minutes Medications reviewed and adjusted accordingly: Yes
[2017-08-21] MEDS: OXYCODONE HCL IR 5 MG TABLET PO PRN ×6 (01:20→23:43)
[2017-08-21] MEDS: IPRATROPIUM/ALBUTEROL 0.5-2.5 MG/3 ML AMPUL NEB SCH ×4 (02:01→20:03)
[2017-08-21] MEDS: LANSOPRAZOLE 15 MG TAB.RAP.DR PO SCH ×2 (06:35→17:05)
[2017-08-21] MEDS: PIPERACILLIN SODIUM/TAZOBACTAM 2.25 GM in NORMAL SALINE 50 ML IV SCH ×3 (06:36→22:02)
[2017-08-21] MEDS: NORMAL SALINE 1000 ML 1,000 ML IV PRN (06:37)
[2017-08-21 06:50] LABS: HEMATOCRIT 29.1 % (37.9-51.0); HEMOGLOBIN 9.9 g/dL (13.5-17.0); HGB HCT DIFFERENCE 0.6; MEAN CORPUSCULAR HEMOGLOBIN 28.9 pg (27.0-33.4); MEAN CORPUSCULAR VOLUME 85 fl (80-97); RED BLOOD COUNT 3.42 10^6/uL (4.35-5.55); RED CELL DISTRIBUTION WIDTH 16.7 % (11.5-14.0); WHITE BLOOD COUNT 6.5 10^3/uL (4.0-10.5)
[2017-08-21 06:58] LABS: PROTHROMBIN TIME 14.2 SEC (11.4-15.4)
[2017-08-21 07:07] LABS: ALANINE AMINOTRANSFERASE 35 U/L (21-72); ALBUMIN 2.7 g/dL (3.5-5.0); ALKALINE PHOSPHATASE 56 U/L (38-126); ANION GAP 7 (5-19); ASPARTATE AMINO TRANSFERASE 60 U/L (17-59); BILIRUBIN,DIRECT 0.5 mg/dL (0.0-0.4); BILIRUBIN,TOTAL 0.5 mg/dL (0.2-1.3); BLOOD UREA NITROGEN 38 mg/dL (7-20); CALCIUM 8.6 mg/dL (8.4-10.2); CARBON DIOXIDE 20 mmol/L (22-30); CHLORIDE 111 mmol/L (98-107); CREATININE RESULT 2.39 mg/dL (0.52-1.25); GLUCOSE 68 mg/dL (75-110); POTASSIUM 4.9 mmol/L (3.6-5.0); SODIUM 138.1 mmol/L (137-145); TOTAL PROTEIN 4.5 g/dL (6.3-8.2)
[2017-08-21 07:16] LABS: BASOPHILS % (MANUAL) 0 % (0-2); EOSINOPHILS % (MANUAL) 5 % (0-6); LYMPHOCYTES % (MANUAL) 19 % (13-45); TOTAL CELLS COUNTED 100
[2017-08-21 07:18] LABS: ANISOCYTOSIS 1+; HYPOCHROMASIA SLIGHT; OVALOCYTES SLIGHT; POIKILOCYTOSIS SLIGHT
[2017-08-21] MEDS ORDERED: FUROSEMIDE INJ/PF 20 MG/2 ML SDV IV ONE (07:36)
[2017-08-21] MEDS: GUAIFENESIN 600 MG TABLET.SA PO SCH ×2 (09:07→22:02)
[2017-08-21] MEDS: TIOTROPIUM BROMIDE DPI 5 CAP/KIT (18 MCG/CAP) IH SCH (09:07)
[2017-08-21] MEDS: LINEZOLID 600 MG TABLET PO SCH ×2 (09:07→22:02)
[2017-08-21] MEDS: LIDOCAINE 5% (700 MG) TRANSDERMAL ADH..PATCH TP PRN (09:08)
--- NOTE | 2017-08-21 16:11 | PDOC PROGRESS REPORT ---
Subjective Progress Note for:: 08/21/17 Subjective:: Patient complains of abdominal pain and distention. He reports that he has significant dyspnea on exertion. He reports this is similar prior to his last paracentesis. Patient denies chest pain, nausea, vomiting, fevers, chills, diarrhea, constipation, headache, new onset weakness. In discussing this case with him and his , she reports that he has lost approximately 30 pounds over the last 3-6 months. She reports he has no appetite. She also reports that he sometimes complains that pills will get stuck in his throat. Physical Exam Vital Signs: Temp Pulse Resp BP Pulse Ox 97.7 F 92 9 L 98/74 L 97 08/21/17 06:41 08/21/17 02:01 08/21/17 06:41 08/21/17 06:41 08/21/17 06:41 Intake & Output 08/20/17 08/21/17 08/22/17 06:59 06:59 06:59 Intake Total 3000 2998 Output Total 955 800 Balance 2045 2198 Weight 104 kg Exam: General: Chronically ill appearing, Awake alert and oriented x3, no acute respiratory distress HEENT: AT/NC, PERRL, EOMI, oropharynx is mostly dry, pink, no scleral icterus, no conjunctival injection Neck: No JVD, trachea midline, +HJR Chest: Anterior chest wall scarring/deformity, clear to auscultation bilaterally CV: Regular rate and rhythm, normal S1 and S2, no rub or gallop Abdomen: Distended, ascites, plus fluid wave, soft, tender to palpation diffusely with a palpable midepigastric mass, active bowel sounds; no rebound, rigidity, or guarding Extremities: No cyanosis, clubbing; 2+ edema Musculoskeletal: right LE decreased musculature and foot drop (chronic) Neuro: Cranial nerves II through XII are grossly intact without focal deficits; awake alert and oriented x3 Psych: Normal mood and affect Results Laboratory Results: 08/21/17 06:30 08/21/17 06:30 08/19/17 08/21/17 08/21/17 13:26 06:30 06:30 WBC 6.5 RBC 3.42 L Hgb 9.9 L Hct 29.1 L MCV 85 MCH 28.9 MCHC 34.0 RDW 16.7 H Plt Count 209 Seg Neutrophils % Not Reportable Lymphocytes % Not Reportable Monocytes % Not Reportable Eosinophils % Not Reportable Basophils % Not Reportable Absolute Neutrophils Not Reportable Absolute Lymphocytes Not Reportable Absolute Monocytes Not Reportable Absolute Eosinophils Not Reportable Absolute Basophils Not Reportable Sodium 138.1 Potassium 4.9 Chloride 111 H Carbon Dioxide 20 L Anion Gap 7 BUN 38 H Creatinine 2.39 H Est GFR ( Amer) 33 L Est GFR (Non-Af Amer) 27 L Glucose 68 L Calcium 8.6 Total Bilirubin 0.5 AST 60 H ALT 35 Alkaline Phosphatase 56 Ammonia Total Protein 4.5 L Albumin 2.7 L Fluid Type PERITONEAL 08/21/17 06:45 WBC RBC Hgb Hct MCV MCH MCHC RDW Plt Count Seg Neutrophils % Lymphocytes % Monocytes % Eosinophils % Basophils % Absolute Neutrophils Absolute Lymphocytes Absolute Monocytes Absolute Eosinophils Absolute Basophils Sodium Potassium Chloride Carbon Dioxide Anion Gap BUN Creatinine Est GFR ( Amer) Est GFR (Non-Af Amer) Glucose Calcium Total Bilirubin AST ALT Alkaline Phosphatase Ammonia 19.8 Total Protein Albumin Fluid Type 08/18/17 08/19/17 08/19/17 21:35 03:35 12:33 Creatine Kinase Troponin I < 0.012 < 0.012 < 0.012 08/19/17 18:18 Creatine Kinase 33 L Troponin I Impressions: Lung Scan-VQ NM 08/18/17 15:42 IMPRESSION: There is a low probability of pulmonary embolus. Renal Ultrasound 08/18/17 15:44 IMPRESSION: No significant renal abnormalities were identified. Pelvic ascitic fluid is identified. Other findings as noted above Paracentesis Ultrasound 08/19/17 00:00 IMPRESSION: Successful ultrasound-guided diagnostic and therapeutic paracentesis Chest X-Ray 08/20/17 06:00 IMPRESSION: Bandlike atelectasis in the right middle lobe and left retrocardiac region similar compared to 08/18/2017 Assessment & Plan - Diagnosis (1) Septic shock Is this a current diagnosis for this admission?: Yes Plan: Improved. Patient with septic shock secondary to SBP and also possibly pneumonia. Continue patient on Zyvox and Zosyn at this time. Patient has one set of blood cultures that are growing gram-positive organisms. Pending identification. Currently off levophed for 12 hours. (2) SBP (spontaneous bacterial peritonitis) Is this a current diagnosis for this admission?: Yes Plan: Pending culture from paracentesis Cytology of patient's ascitic fluid was quite abnormal and has been sent for full cytologic examination. Atypical cells seen on patient's cell count of his ascitic fluid. I did discuss this with Dr. Yang, the pathologist, who requests a fresh specimen. Plan to repeat paracentesis on Tuesday. (3) MICHEAL (acute kidney injury) Is this a current diagnosis for this admission?: Yes Plan: Appreciate nephrology input. This is likely secondary to sepsis, but have concern for hepatorenal syndrome. Improving with IV fluids. 08/18/17 08/19/17 08/20/17 14:57 03:35 06:00 Creatinine 4.76 H 4.08 H 2.95 H 08/21/17 06:30 Creatinine 2.39 H (4) Diabetes mellitus type 2 in nonobese Is this a current diagnosis for this admission?: Yes Plan: Doing well with sliding scale insulin. (5) Hepatitis C Qualifiers: Viral hepatitis chronicity: chronic Hepatic coma status: without hepatic coma Qualified Code(s): B18.2 - Chronic viral hepatitis C Is this a current diagnosis for this admission?: Yes Plan: Patient appears to have cirrhosis with this. (6) Hyperkalemia Is this a current diagnosis for this admission?: Yes Plan: Improved, secondary to acute renal failure. Have discontinued patient's BILLIE and continue hydration. (7) Hypoalbuminemia Is this a current diagnosis for this admission?: Yes Plan: Secondary to cirrhosis (8) Metabolic acidosis Is this a current diagnosis for this admission?: Yes Plan: Secondary to renal failure (9) Ascites Qualifiers: Ascites type: malignant Qualified Code(s): R18.0 - Malignant ascites Is this a current diagnosis for this admission?: Yes Plan: Patient has ascites possibly secondary to liver disease, but patient's cytology from his paracentesis was quite abnormal and upon review of this with the pathologist she is recommended a repeat specimen for fresh immunologic staining. We will do this on Tuesday. - Time Time Spent with patient: 35 or more minutes Medications reviewed and adjusted accordingly: Yes
[2017-08-22] MEDS: NORMAL SALINE 1000 ML 1,000 ML IV PRN ×2 (01:53→17:22)
[2017-08-22] MEDS: IPRATROPIUM/ALBUTEROL 0.5-2.5 MG/3 ML AMPUL NEB SCH ×4 (02:08→20:20)
[2017-08-22] MEDS: OXYCODONE HCL IR 5 MG TABLET PO PRN ×4 (05:42→21:08)
[2017-08-22] MEDS: LANSOPRAZOLE 15 MG TAB.RAP.DR PO SCH ×2 (05:42→17:21)
[2017-08-22] MEDS: PIPERACILLIN SODIUM/TAZOBACTAM 2.25 GM in NORMAL SALINE 50 ML IV SCH ×2 (05:43→14:30)
[2017-08-22 06:09] LABS: PARTIAL THROMBOPLASTIN TIME 29.2 SEC (23.5-35.8); PROTHROMBIN TIME 14.6 SEC (11.4-15.4)
--- NOTE | 2017-08-22 10:39 | RADIOLOGY REPORT (SQ) ---
EXAM DESCRIPTION: U/S ABD PARACENTESIS COMPLETED DATE/TIME: 08/22/2017 10:02 am REASON FOR STUDY: ascites, concern for malignant ascites COMPARISON 08/20/2017 LIMITATIONS: None. PROCEDURE: After obtaining informed consent, the patient was brought to the ultrasound suite. The p rocedure was performed with the patient on a gurney. Ultrasound was used to identify a prominent poc ket of ascites in the right lower quadrant. An appropriate access site was selected. The patient wa s prepped and draped in usual sterile fashion. The access site was anesthetized with 5 mL 1% lidoca ine. A Kvao-Y-[id number] needle was advanced into the fluid. After aspiration of fluid the needle, th e catheter was advanced off the needle into the fluid. A total of 2,450 mL of straw fluid was remove d. The patient tolerated the procedure well left the department in satisfactory condition. IMPRESSION: Successful ultrasound-guided paracentesis COMMENT: Patient medication list reviewed: Yes- Quality ID# [id number]:Eligible professional attests to doc umenting in the medical record they obtained, updated, or reviewed the patient's current medications. Quality ID #[id number]: The patient was prepped and draped using maximum sterile barrier technique including cap, mask, sterile gown, sterile gloves, a large sterile sheet, hand hygiene, and 2% Chlorhexidine fo r cutaneous antisepsis. When ultrasound is used, sterile ultrasound techniques are followed requiring sterile gel and sterile probes. Quality ID #[id number]: Final reports for procedures using fluoroscopy that document radiation exposure farhan tonny, or exposure time and number of fluorographic images (if radiation exposure indices are not avail able) TECHNICAL DOCUMENTATION: JOB ID: [id number] [employer]- All Rights Reserved
[2017-08-22 10:52] LABS: FLUID APPEARANCE CLOUDY; FLUID TYPE PERITONEAL
[2017-08-22] MEDS: FENTANYL 50 MCG/HR PATCH.TD72 TD SCH (11:06)
[2017-08-22] MEDS: LINEZOLID 600 MG TABLET PO SCH ×2 (11:08→21:08)
[2017-08-22] MEDS: GUAIFENESIN 600 MG TABLET.SA PO SCH ×2 (11:08→21:08)
[2017-08-22] MEDS: TIOTROPIUM BROMIDE DPI 5 CAP/KIT (18 MCG/CAP) IH SCH (11:09)
[2017-08-22] MEDS: LIDOCAINE 5% (700 MG) TRANSDERMAL ADH..PATCH TP PRN (11:10)
[2017-08-22 11:38] LABS: FLUID RBC DILUENT USED SALINE; FLUID RBC DILUTION FACTOR 10; FLUID RBC SIDE 1 79; TOTAL RBC SQUARES COUNTED FLD 225
[2017-08-22 11:53] LABS: FLUID RBC AVERAGE 75.5; FLUID RBC SIDE 2 72
--- NOTE | 2017-08-22 15:12 | PDOC PROGRESS REPORT ---
Subjective Progress Note for:: 08/22/17 Subjective:: Patient denies any pain or fever. No bowel movement for the past 3-4 days. Abdomen still distended. No nausea or vomiting. No PND orthopnea nor any chest pain. A total of about 8 L were taken out on paracenteses since admitted. Physical Exam Vital Signs: Temp Pulse Resp BP Pulse Ox 98.1 F 102 H 16 103/64 97 08/22/17 07:16 08/22/17 14:12 08/22/17 14:12 08/22/17 08:45 08/22/17 14:12 Intake & Output 08/21/17 08/22/17 08/23/17 06:59 06:59 06:59 Intake Total 2998 4158 Output Total 800 1285 Balance 2198 2873 Weight 108 kg 108 kg General appearance: PRESENT: no acute distress, cooperative Head exam: PRESENT: normocephalic Eye exam: PRESENT: EOMI Mouth exam: PRESENT: moist, neck supple Neck exam: ABSENT: JVD Respiratory exam: PRESENT: clear to auscultation vu Cardiovascular exam: PRESENT: RRR. ABSENT: gallop GI/Abdominal exam: PRESENT: distended, soft, other - Slight tympany to percussion. ABSENT: tenderness Extremities exam: PRESENT: other - Trace to +1 edema bilateral Neurological exam: PRESENT: alert, awake, oriented to situation Skin exam: PRESENT: dry, warm. ABSENT: cyanosis Results Laboratory Results: 08/21/17 06:30 08/21/17 06:30 08/22/17 09:25 Fluid Type PERITONEAL Fluid Source ASCITES Fluid Color YELLOW Fluid Appearance CLOUDY Fluid Viscosity SLIGHTLY VISCOUS Fluid WBC 8178 Fluid RBC 838 08/19/17 12:33 Sputum Gram Stain - Final 08/19/17 12:33 Sputum Sputum Culture - Final NORMAL REBECCA 08/18/17 08/19/17 08/19/17 21:35 03:35 12:33 Creatine Kinase Troponin I < 0.012 < 0.012 < 0.012 08/19/17 18:18 Creatine Kinase 33 L Troponin I Impressions: Lung Scan-VQ NM 08/18/17 15:42 IMPRESSION: There is a low probability of pulmonary embolus. Renal Ultrasound 08/18/17 15:44 IMPRESSION: No significant renal abnormalities were identified. Pelvic ascitic fluid is identified. Other findings as noted above Chest X-Ray 08/20/17 06:00 IMPRESSION: Bandlike atelectasis in the right middle lobe and left retrocardiac region similar compared to 08/18/2017 Paracentesis Ultrasound 08/22/17 09:03 IMPRESSION: Successful ultrasound-guided paracentesis Assessment & Plan - Diagnosis (1) Septic shock Is this a current diagnosis for this admission?: Yes (2) SBP (spontaneous bacterial peritonitis) Is this a current diagnosis for this admission?: Yes (3) MICHEAL (acute kidney injury) Is this a current diagnosis for this admission?: Yes (4) Metabolic acidosis Is this a current diagnosis for this admission?: Yes (5) Ascites Qualifiers: Ascites type: malignant Qualified Code(s): R18.0 - Malignant ascites Is this a current diagnosis for this admission?: Yes (6) Diabetes mellitus type 2 in nonobese Is this a current diagnosis for this admission?: Yes (7) Hepatitis C Qualifiers: Viral hepatitis chronicity: chronic Hepatic coma status: without hepatic coma Qualified Code(s): B18.2 - Chronic viral hepatitis C Is this a current diagnosis for this admission?: Yes - Time Time Spent with patient: 25-34 minutes - Plan Summary Plan Summary: Continue vancomycin. Decrease intravenous fluids. Dulcolax suppository one time dose. Transition broad-spectrum antibiotic to oral Levaquin. Continue supportive care.
[2017-08-22] MEDS ORDERED: BISACODYL 10 MG SUPP.RECT PR ONE (16:00)
[2017-08-22] MEDS ORDERED: LEVOFLOXACIN 750 MG TABLET PO SCH (16:00)
--- NOTE | 2017-08-22 18:48 | PDOC PROGRESS REPORT ---
Subjective Progress Note for:: 08/22/17 Subjective:: Patient's blood pressure improved and currently patient is not on pressors anymore. He is currently in IMCU. His ascites was reaccumulating so another paracentesis was done today obtaining about 2300 mL of ascitic fluid. He continues to be on antibiotics. He makes urine however the amount is disproportionate to his intake. He is also having peripheral edema. Physical Exam Vital Signs: Temp Pulse Resp BP Pulse Ox 98.2 F 103 H 18 112/73 99 08/22/17 15:37 08/22/17 15:37 08/22/17 15:37 08/22/17 15:37 08/22/17 15:37 Intake & Output 08/21/17 08/22/17 08/23/17 06:59 06:59 06:59 Intake Total 2998 4158 450 Output Total 800 1285 650 Balance 2198 2873 -200 Weight 108 kg 108 kg Exam: General appearance: PRESENT: no acute distress, cooperative, well-developed, well-nourished Head exam: PRESENT: atraumatic, normocephalic Eye exam: PRESENT: conjunctiva pale, PERRLA. ABSENT: scleral icterus Neck exam: ABSENT: JVD Respiratory exam: PRESENT: Diminished breath sounds. ABSENT: crackles, rales, rhonchi, unlabored, wheezes Cardiovascular exam: PRESENT: Regular rate rhythm -+S1, +S2. ABSENT: diastolic murmur, systolic murmur GI/Abdominal exam: PRESENT: normal bowel sounds, soft. Positive ascites with note of some drainage on paracentesis site. ABSENT: guarding, mass, tenderness Extremities exam: [Present: He has about grade 2 bilateral lower extremity pitting edema from hips down to the feet Neurological exam: PRESENT: alert, awake, oriented to person, place and time. Skin exam: PRESENT: dry, warm, positive pallor Results Laboratory Results: 08/21/17 06:30 08/21/17 06:30 08/22/17 09:25 Fluid Type PERITONEAL Fluid Source ASCITES Fluid Color YELLOW Fluid Appearance CLOUDY Fluid Viscosity SLIGHTLY VISCOUS Fluid WBC 8178 Fluid RBC 838 08/18/17 08/19/17 08/19/17 21:35 03:35 12:33 Creatine Kinase Troponin I < 0.012 < 0.012 < 0.012 08/19/17 18:18 Creatine Kinase 33 L Troponin I Impressions: Lung Scan-VQ NM 08/18/17 15:42 IMPRESSION: There is a low probability of pulmonary embolus. Renal Ultrasound 08/18/17 15:44 IMPRESSION: No significant renal abnormalities were identified. Pelvic ascitic fluid is identified. Other findings as noted above Chest X-Ray 08/20/17 06:00 IMPRESSION: Bandlike atelectasis in the right middle lobe and left retrocardiac region similar compared to 08/18/2017 Paracentesis Ultrasound 08/22/17 09:03 IMPRESSION: Successful ultrasound-guided paracentesis Assessment & Plan - Diagnosis (1) MICHEAL (acute kidney injury) Is this a current diagnosis for this admission?: Yes Plan: Patient does not have any proteinuria with only very small microhematuria and a lot of hyaline casts in the urine. This indicated the patient most likely has initially acute prerenal azotemia due to severe intravascular volume depletion which could have led to acute tubular necrosis associated with severe hypotension. However we cannot totally rule out underlying hepatorenal syndrome considering his liver issues. Patient is currently nonoliguric with urine output is disproportionate to the intake. He is so far 8 L positive before today's paracentesis. Agree with decreasing IV fluids. Hold any nephrotoxic medications including lisinopril and metformin. Patient does not need any emergent renal replacement therapy at this time. Continuing to monitor kidney function, electrolytes and urine output. Post paracentesis I am going to give the patient 25 g of albumin followed by Lasix 20 mg IV. Moving forward patient needs to be on some diuretics even just a low dose. (2) Acute renal tubular necrosis Is this a current diagnosis for this admission?: Yes (3) SBP (spontaneous bacterial peritonitis) Is this a current diagnosis for this admission?: Yes (4) Ascites Qualifiers: Ascites type: malignant Qualified Code(s): R18.0 - Malignant ascites Is this a current diagnosis for this admission?: Yes Plan: Status post paracentesis. Needs albumin infusion. (5) Hepatitis C Qualifiers: Viral hepatitis chronicity: chronic Hepatic coma status: without hepatic coma Qualified Code(s): B18.2 - Chronic viral hepatitis C Is this a current diagnosis for this admission?: Yes (6) Hyperkalemia Is this a current diagnosis for this admission?: Yes Plan: Improved and resolved. (7) Metabolic acidosis Is this a current diagnosis for this admission?: Yes Plan: This is due to acute kidney injury and partly due to IV fluid hydration. Currently improving. (8) Hypoalbuminemia Is this a current diagnosis for this admission?: Yes Plan: Most likely secondary to his hepatitis C and poor oral intake. (9) Hypotension Is this a current diagnosis for this admission?: Yes Plan: Currently improved although still slightly lowish. (10) Diabetes mellitus type 2 in nonobese Is this a current diagnosis for this admission?: Yes - Time Time with patient: 15-25 minutes
[2017-08-22] MEDS: ALBUMIN HUMAN 50 ML IV SCH ×2 (19:33→20:09)
[2017-08-22] MEDS ORDERED: FUROSEMIDE INJ/PF 20 MG/2 ML SDV IV ONE (21:30)
[2017-08-22] MEDS ORDERED: PIPERACILLIN SODIUM/TAZOBACTAM 2.25 GM in NORMAL SALINE 100 ML IV SCH (22:00)
--- NOTE | 2017-08-22 22:16 | XCELERA REPORT ---
[address] [address] Transthoracic Echocardiogram Report Name: MICHELLE CARDONA Age: 66 yrs Gender: Male : 1950 Patient Status: Inpatient Patient Location: [address] [place] [address] Study Date: 08/22/2017 09:55 AM Height: 72 in Weight: 229 lb BSA: 2.3 m2 Procedure: A complete two-dimensional transthoracic echocardiogram was performed (2D, M-mode, spectral and color flow Doppler). The study was technically difficult with many images being suboptimal in quality. Reason For Study: patterson Ordering Physician: JOSSUE WRIGHT Performed By: Kelsy Diane Interpretation Summary The study was technically difficult with many images being suboptimal in quality. The left ventricular ejection fraction is within normal limits. The right ventricle is mildly dilated. The left atrium is mildly dilated. The right atrium is mildly dilated. There is a trace amount of mitral regurgitation There is no pericardial effusion. MMode/2D Measurements & Calculations RVDd: 3.1 cm LVIDd: 4.3 cmFS: 43.1 % Ao root diam: 4.0 cm IVSd: 1.1 cm LVIDs: 2.5 cmEDV(Teich): 84.3 ml LVPWd: 1.0 cmESV(Teich): 21.5 ml Ao root area: 12.5 cm2 EF(Teich): 74.5 % LA dimension: 3.9 cm LVOT diam: 2.6 cm LVOT area: 5.5 cm2 Doppler Measurements & Calculations MV E max joanne: MV P1/2t max joanne: Ao V2 max: LV V1 max P.9 cm/sec 87.4 cm/sec 166.3 cm/sec 5.9 mmHg MV A max joanne: MV P1/2t: 70.9 msec Ao max PG: LV V1 max: 100.7 cm/sec MVA(P1/2t): 3.1 cm2 11.1 mmHg 121.9 cm/sec MV E/A: 0.86 MV dec slope: ZAC(V,D): 4.0 cm2 360.8 cm/sec2 PA V2 max: TR max joanne: 78.0 cm/sec 229.8 cm/sec PA max P.4 mmHgTR max P.1 mmHg Left Ventricle The left ventricle is grossly normal size. There is mild concentric left ventricular hypertrophy. The left ventricular ejection fraction is within normal limits. Doppler measurements suggest pseudonormalized left ventricular relaxation, which is associated with grade II/IV or mild to moderate diastolic dysfunction. Not all wall segments were well visualized. Wall motion cannot be accurately commented on, but no definite regional wall motion abnormalities noted. Right Ventricle The right ventricle is mildly dilated. The right ventricular systolic function is normal. Atria The right atrium is mildly dilated. The left atrium is mildly dilated. Interarterial septum not well visualized and not well dopplered. Cannot comment on ASD/PFO presence. Mitral Valve There is mild mitral annular calcification. There is mild mitral leaflet calcification. There is no mitral valve stenosis. There is a trace amount of mitral regurgitation. Aortic Valve The aortic valve is not well visualized secondary to technical limitations. There is no aortic valve stenosis. No aortic regurgitation is present. Tricuspid Valve The tricuspid valve is not well visualized secondary to technical limitations. There is no tricuspid stenosis. There is a trace or physiologic amount of tricuspid regurgitation. Tricuspid regurgitation jet envelope not well defined to measure RV systolic pressure accurately. Pulmonic Valve The pulmonic valve is not well visualized. Great Vessels The aortic root is not well visualized. The inferior vena cava appeared normal and decreased > 50% with respiration (RAP 5-10 mmHg). Effusions There is no pericardial effusion. : JOSSUE WRIGHT Bon [place]l
[2017-08-23] MEDS: OXYCODONE HCL IR 5 MG TABLET PO PRN ×5 (00:52→22:36)
[2017-08-23] MEDS: IPRATROPIUM/ALBUTEROL 0.5-2.5 MG/3 ML AMPUL NEB SCH ×4 (01:05→20:15)
[2017-08-23] MEDS: LANSOPRAZOLE 15 MG TAB.RAP.DR PO SCH ×2 (05:37→17:46)
[2017-08-23 06:59] LABS: ANION GAP 11 (5-19); BLOOD UREA NITROGEN 27 mg/dL (7-20); CALCIUM 9.2 mg/dL (8.4-10.2); CARBON DIOXIDE 17 mmol/L (22-30); CHLORIDE 110 mmol/L (98-107); GLUCOSE 57 mg/dL (75-110); POTASSIUM 4.8 mmol/L (3.6-5.0); SODIUM 138.1 mmol/L (137-145)
[2017-08-23] MEDS ORDERED: BISACODYL 10 MG SUPP.RECT PR ONE (10:35)
--- NOTE | 2017-08-23 10:48 | PDOC PROGRESS REPORT ---
Subjective Progress Note for:: 08/23/17 Subjective:: Patient still feels bloated with decreased appetite. Patient passed a little bit of gas but no bowel movement. Last good bowel movement was 4 days ago. No reported chills or fever. Able to ambulate around. Never had a slight snore paracentesis in the past other than during this admission. Unaware of a diagnosis of liver cirrhosis. Physical Exam Vital Signs: Temp Pulse Resp BP Pulse Ox 98.1 F 77 18 110/60 95 08/23/17 07:08 08/23/17 08:07 08/23/17 08:07 08/23/17 07:08 08/23/17 08:07 Intake & Output 08/22/17 08/23/17 08/24/17 06:59 06:59 06:59 Intake Total 4158 3525 Output Total 1285 1050 Balance 2873 2475 Weight 108 kg 108.3 kg General appearance: PRESENT: no acute distress, cooperative, obese Head exam: PRESENT: normocephalic Eye exam: PRESENT: EOMI Mouth exam: PRESENT: moist, neck supple Neck exam: ABSENT: JVD Respiratory exam: PRESENT: clear to auscultation vu, unlabored Cardiovascular exam: PRESENT: RRR. ABSENT: gallop GI/Abdominal exam: PRESENT: distended, hypoactive bowel sounds, tenderness - Slight tympany to percussion. ABSENT: rebound Extremities exam: PRESENT: +1 edema - Right, left is trace to +1 Neurological exam: PRESENT: alert, awake, oriented to person, oriented to place , oriented to time, oriented to situation Skin exam: PRESENT: dry, warm. ABSENT: cyanosis Results Laboratory Results: 08/21/17 06:30 08/23/17 05:00 08/22/17 08/23/17 08/23/17 09:25 05:00 05:00 Sodium 138.1 Potassium 4.8 Chloride 110 H Carbon Dioxide 17 L Anion Gap 11 BUN 27 H Creatinine 1.70 H Est GFR ( Amer) 49 L Est GFR (Non-Af Amer) 41 L Glucose 57 L Calcium 9.2 Albumin 2.9 L Fluid Type PERITONEAL Fluid Source ASCITES Fluid Color YELLOW Fluid Appearance CLOUDY Fluid Viscosity SLIGHTLY VISCOUS Fluid WBC 8178 Fluid RBC 838 08/18/17 08/19/17 08/19/17 21:35 03:35 12:33 Creatine Kinase Troponin I < 0.012 < 0.012 < 0.012 08/19/17 18:18 Creatine Kinase 33 L Troponin I Impressions: Lung Scan-VQ NM 08/18/17 15:42 IMPRESSION: There is a low probability of pulmonary embolus. Renal Ultrasound 08/18/17 15:44 IMPRESSION: No significant renal abnormalities were identified. Pelvic ascitic fluid is identified. Other findings as noted above Chest X-Ray 08/20/17 06:00 IMPRESSION: Bandlike atelectasis in the right middle lobe and left retrocardiac region similar compared to 08/18/2017 Paracentesis Ultrasound 08/22/17 09:03 IMPRESSION: Successful ultrasound-guided paracentesis Assessment & Plan - Diagnosis (1) Septic shock Is this a current diagnosis for this admission?: Yes (2) SBP (spontaneous bacterial peritonitis) Is this a current diagnosis for this admission?: Yes (3) MICHEAL (acute kidney injury) Is this a current diagnosis for this admission?: Yes (4) Metabolic acidosis Is this a current diagnosis for this admission?: Yes (5) Ascites Qualifiers: Ascites type: malignant Qualified Code(s): R18.0 - Malignant ascites Is this a current diagnosis for this admission?: Yes (6) Diabetes mellitus type 2 in nonobese Is this a current diagnosis for this admission?: Yes (7) Hepatitis C Qualifiers: Viral hepatitis chronicity: chronic Hepatic coma status: without hepatic coma Qualified Code(s): B18.2 - Chronic viral hepatitis C Is this a current diagnosis for this admission?: Yes - Time Time Spent with patient: 25-34 minutes - Plan Summary Plan Summary: Awaiting cytology or biopsy report on the peritoneal fluid. In the meantime continue antibiotics for now. We will begin Lasix and Aldactone and give Dulcolax suppository. We will complete a total of 7 days of Zyvox and subsequently transition antibiotic to Levaquin and Flagyl or Bactrim and Flagyl. We will begin DVT prophylaxis with Lovenox. Continue supportive care. Recheck creatinine.
[2017-08-23] MEDS: LINEZOLID 600 MG TABLET PO SCH ×2 (10:58→22:35)
[2017-08-23] MEDS: TIOTROPIUM BROMIDE DPI 5 CAP/KIT (18 MCG/CAP) IH SCH (10:58)
[2017-08-23] MEDS: GUAIFENESIN 600 MG TABLET.SA PO SCH ×2 (10:58→22:36)
[2017-08-23] MEDS ORDERED: SPIRONOLACTONE 25 MG TABLET PO ONE (11:30)
[2017-08-23] MEDS ORDERED: ENOXAPARIN SODIUM INJ 40 MG/0.4 ML DISP.SYRIN SUBCUT ONE (11:30)
[2017-08-23] MEDS ORDERED: FENTANYL 25 MCG/HR PATCH.TD72 TD ONE (11:30)
[2017-08-23] MEDS ORDERED: FUROSEMIDE 40 MG TABLET PO ONE (11:30)
[2017-08-23 12:03] LABS: HEMATOCRIT 23.9 % (37.9-51.0); HEMOGLOBIN 8.1 g/dL (13.5-17.0); HGB HCT DIFFERENCE 0.4; MEAN CORPUSCULAR HEMOGLOBIN 28.9 pg (27.0-33.4); MEAN CORPUSCULAR HGB CONC 33.7 g/dL (32.0-36.0); MEAN CORPUSCULAR VOLUME 86 fl (80-97); RED BLOOD COUNT 2.79 10^6/uL (4.35-5.55); RED CELL DISTRIBUTION WIDTH 16.8 % (11.5-14.0); WHITE BLOOD COUNT 6.4 10^3/uL (4.0-10.5)
[2017-08-23 12:09] LABS: PROTHROMBIN TIME 15.9 SEC (11.4-15.4)
[2017-08-23 12:10] LABS: PARTIAL THROMBOPLASTIN TIME 29.1 SEC (23.5-35.8)
[2017-08-23 12:41] LABS: CREATININE RESULT 1.58 mg/dL (0.52-1.25)
[2017-08-23] MEDS: LIDOCAINE 5% (700 MG) TRANSDERMAL ADH..PATCH TP PRN (12:56)
[2017-08-23] MEDS: NORMAL SALINE 1000 ML 1,000 ML IV PRN (14:06)
--- NOTE | 2017-08-23 16:58 | PDOC PROGRESS REPORT ---
Subjective Progress Note for:: 08/23/17 Subjective:: Patient responded to the albumin plus Lasix last night with a little bit more urine output. Today he got started with oral Lasix and spironolactone by Dr. Martinez. He continues to make urine. Appetite is still poor. Is having discomfort in his right leg and it is significantly more swollen than the left leg. From the last time that I have seen him I think his legs especially the right leg is significantly more swollen now than on admission. Blood pressure has been holding on to acceptable limits. He also complains of hiccups. He does not have any other complaints. Physical Exam Vital Signs: Temp Pulse Resp BP Pulse Ox 97.6 F 104 H 16 117/61 98 08/23/17 15:04 08/23/17 15:04 08/23/17 15:04 08/23/17 15:04 08/23/17 15:04 Intake & Output 08/22/17 08/23/17 08/24/17 06:59 06:59 06:59 Intake Total 4158 3525 Output Total 1285 1050 Balance 2873 2475 Weight 108 kg 108.3 kg Exam: General appearance: PRESENT: no acute distress, cooperative, well-developed, well-nourished Head exam: PRESENT: atraumatic, normocephalic Eye exam: PRESENT: conjunctiva pale, PERRLA. ABSENT: scleral icterus Neck exam: ABSENT: JVD Respiratory exam: PRESENT: Diminished breath sounds. ABSENT: crackles, rales, rhonchi, unlabored, wheezes Cardiovascular exam: PRESENT: Regular rate rhythm -+S1, +S2. ABSENT: diastolic murmur, systolic murmur GI/Abdominal exam: PRESENT: normal bowel sounds, soft. Positive distended abdomen due to ascites ABSENT: guarding, mass, tenderness Extremities exam: Present: Grade 2 bilateral lower extremity edema but more on the right compared to the left lower extremity Neurological exam: PRESENT: alert, awake, oriented to person, place and time. Skin exam: PRESENT: dry, warm, positive pallor Results Laboratory Results: 08/23/17 11:45 08/23/17 11:45 08/23/17 08/23/17 08/23/17 05:00 05:00 11:45 WBC 6.4 RBC 2.79 L Hgb 8.1 L Hct 23.9 L MCV 86 MCH 28.9 MCHC 33.7 RDW 16.8 H Plt Count 141 L Sodium 138.1 Potassium 4.8 Chloride 110 H Carbon Dioxide 17 L Anion Gap 11 BUN 27 H Creatinine 1.70 H Est GFR ( Amer) 49 L Est GFR (Non-Af Amer) 41 L Glucose 57 L Calcium 9.2 Albumin 2.9 L 08/23/17 11:45 WBC RBC Hgb Hct MCV MCH MCHC RDW Plt Count Sodium Potassium Chloride Carbon Dioxide Anion Gap BUN Creatinine 1.58 H Est GFR ( Amer) 54 L Est GFR (Non-Af Amer) 44 L Glucose Calcium Albumin 08/19/17 13:26 Ascities Fluid Gram Stain - Final 08/19/17 13:26 Ascities Fluid Body Fluid Culture - Final NO AEROBIC OR ANAEROBIC ORGANISMS RECOVERED 08/18/17 08/19/17 08/19/17 21:35 03:35 12:33 Creatine Kinase Troponin I < 0.012 < 0.012 < 0.012 08/19/17 18:18 Creatine Kinase 33 L Troponin I Impressions: Lung Scan-VQ NM 08/18/17 15:42 IMPRESSION: There is a low probability of pulmonary embolus. Renal Ultrasound 08/18/17 15:44 IMPRESSION: No significant renal abnormalities were identified. Pelvic ascitic fluid is identified. Other findings as noted above Chest X-Ray 08/20/17 06:00 IMPRESSION: Bandlike atelectasis in the right middle lobe and left retrocardiac region similar compared to 08/18/2017 Paracentesis Ultrasound 08/22/17 09:03 IMPRESSION: Successful ultrasound-guided paracentesis Assessment & Plan - Diagnosis (1) MICHEAL (acute kidney injury) Is this a current diagnosis for this admission?: Yes Plan: Patient does not have any proteinuria with only very small microhematuria and a lot of hyaline casts in the urine. This indicated the patient most likely has initially acute prerenal azotemia due to severe intravascular volume depletion which could have led to acute tubular necrosis associated with severe hypotension. However we cannot totally rule out underlying hepatorenal syndrome considering his liver issues. Patient is currently nonoliguric with urine output is disproportionate to the intake. He is so far 8 L positive before today's paracentesis. Agree with decreasing IV fluids. Hold any nephrotoxic medications including lisinopril and metformin. Patient does not need any emergent renal replacement therapy at this time. Continuing to monitor kidney function, electrolytes and urine output. Kidney function has improved significantly today. Agree with Lasix and Aldactone. Continue to monitor kidney function. (2) Acute renal tubular necrosis Is this a current diagnosis for this admission?: Yes (3) SBP (spontaneous bacterial peritonitis) Is this a current diagnosis for this admission?: Yes (4) Ascites Qualifiers: Ascites type: malignant Qualified Code(s): R18.0 - Malignant ascites Is this a current diagnosis for this admission?: Yes Plan: Status post paracentesis 2. (5) Hepatitis C Qualifiers: Viral hepatitis chronicity: chronic Hepatic coma status: without hepatic coma Qualified Code(s): B18.2 - Chronic viral hepatitis C Is this a current diagnosis for this admission?: Yes (6) Metabolic acidosis Is this a current diagnosis for this admission?: Yes Plan: This is due to acute kidney injury and partly due to IV fluid hydration. Currently unchanged. Start oral sodium bicarbonate. (7) Hypoalbuminemia Is this a current diagnosis for this admission?: Yes Plan: Most likely secondary to his hepatitis C and poor oral intake. Encouraged patient to eat a little bit more. (8) Right leg swelling Is this a current diagnosis for this admission?: Yes Plan: Discussed with Dr. Martinez. Compared to admission and I think the patient's lower extremities are more swollen especially the right leg. I recommend repeat the venous Doppler to make sure he did not develop DVT during this admission. Dr. Martinez agreed and will order the test. (9) Hypotension Is this a current diagnosis for this admission?: Yes Plan: Currently improved although still slightly lowish. (10) Diabetes mellitus type 2 in nonobese Is this a current diagnosis for this admission?: Yes (11) Intractable hiccups Is this a current diagnosis for this admission?: Yes Plan: We will try very low-dose chlorpromazine 25 mg p.o. 3 times daily. - Notes Notes: I will sign off at this time. Please call me if I can be of further help. - Time Time with patient: 15-25 minutes
--- NOTE | 2017-08-23 18:29 | RADIOLOGY REPORT (SQ) ---
EXAM DESCRIPTION: VENOUS UNILATERAL LOWER COMPLETED DATE/TIME: 08/23/2017 6:17 pm REASON FOR STUDY: Increasing swelling right/DVT COMPARISON: None. TECHNIQUE: Dynamic and static jackson scale and color images acquired of the right leg venous system. S elected spectral images acquired with additional compression and augmentation maneuvers. The contrala teral common femoral vein and saphenofemoral junction were also imaged. Images stored on PACS. LIMITATIONS: None. FINDINGS: COMMON FEMORAL: Noncompressible with partial nonocclusive thrombus visualized on grayscale . FEMORAL: Normal compression and augmentation. No visualized echogenic material on jackson scale. No defe cts on color images. POPLITEAL: Normal compression, augmentation. No visualized echogenic material on jackson scale. No defec ts on color images. CALF VESSELS: Normal compression, augmentation. No visualized echogenic material on jackson scale. No de fects on color images. GSV and SSV: Normal compression, augmentation. No visualized echogenic material on jackson scale. No def ects on color images. ANY DEEP VENOUS INSUFFICIENCY: Not evaluated. ANY EVIDENCE OF POPLITEAL CYST: No. OTHER: No other significant finding. CONTRALATERAL COMMON FEMORAL VEIN AND SAPHENOFEMORAL JUNCTION: Normal phasicity, compression and augmentation. No visualized echogenic material on jackson scale. No de fects on color images. IMPRESSION: Positive for deep vein thrombosis in the right common femoral vein with partial nonocclu sive thrombus. TECHNICAL DOCUMENTATION: JOB ID: [id number] [employer]- All Rights Reserved
[2017-08-23] MEDS: ENOXAPARIN SODIUM INJ 100 MG/1 ML DISP.SYRIN SUBCUT SCH (22:35)
[2017-08-23] MEDS: SODIUM BICARBONATE 650 MG TABLET PO SCH (22:36)
[2017-08-24] MEDS: IPRATROPIUM/ALBUTEROL 0.5-2.5 MG/3 ML AMPUL NEB SCH ×2 (02:05→07:54)
[2017-08-24] MEDS: OXYCODONE HCL IR 5 MG TABLET PO PRN ×5 (05:26→22:38)
[2017-08-24] MEDS: LANSOPRAZOLE 15 MG TAB.RAP.DR PO SCH ×2 (05:27→17:47)
[2017-08-24 06:10] LABS: HEMATOCRIT 30.5 % (37.9-51.0); HGB HCT DIFFERENCE 0.7; MEAN CORPUSCULAR HEMOGLOBIN 28.9 pg (27.0-33.4); MEAN CORPUSCULAR HGB CONC 34.1 g/dL (32.0-36.0); MEAN CORPUSCULAR VOLUME 85 fl (80-97); RED BLOOD COUNT 3.59 10^6/uL (4.35-5.55); RED CELL DISTRIBUTION WIDTH 16.9 % (11.5-14.0); WHITE BLOOD COUNT 8.3 10^3/uL (4.0-10.5)
[2017-08-24 06:20] LABS: HEMOGLOBIN 10.4 g/dL (13.5-17.0)
[2017-08-24 06:26] LABS: ANION GAP 10 (5-19); BLOOD UREA NITROGEN 24 mg/dL (7-20); CALCIUM 9.1 mg/dL (8.4-10.2); CARBON DIOXIDE 18 mmol/L (22-30); CHLORIDE 109 mmol/L (98-107); CREATININE RESULT 1.48 mg/dL (0.52-1.25); GLUCOSE 63 mg/dL (75-110); POTASSIUM 4.8 mmol/L (3.6-5.0); SODIUM 137.2 mmol/L (137-145)
--- NOTE | 2017-08-24 09:08 | PDOC PROGRESS REPORT ---
Subjective Progress Note for:: 08/24/17 Subjective:: Lower extremity swelling is about the same. Venous Doppler positive for DVT. Patient complains of generalized pain. Pathology is pending for the very to peritoneal fluid. Denies any chills or fever. Had good bowel movements. Abdomen still with distention. Physical Exam Vital Signs: Temp Pulse Resp BP Pulse Ox 97.7 F 100 16 112/62 96 08/24/17 07:41 08/24/17 07:54 08/24/17 07:54 08/24/17 07:41 08/24/17 07:54 Intake & Output 08/23/17 08/24/17 08/25/17 06:59 06:59 06:59 Intake Total 3525 2351 Output Total 1050 1250 Balance 2475 1101 Weight 108.3 kg 109.6 kg General appearance: PRESENT: no acute distress, cooperative Head exam: PRESENT: normocephalic Eye exam: PRESENT: EOMI Mouth exam: PRESENT: moist, neck supple Neck exam: ABSENT: JVD Respiratory exam: PRESENT: clear to auscultation vu. ABSENT: rhonchi, wheezes Cardiovascular exam: PRESENT: RRR. ABSENT: gallop GI/Abdominal exam: PRESENT: distended, soft, other - Tympanitic Extremities exam: PRESENT: +1 edema - Right lower extremity, trace on the left Neurological exam: PRESENT: alert, awake, oriented to person Skin exam: PRESENT: dry, warm. ABSENT: cyanosis Results Laboratory Results: 08/24/17 05:30 08/24/17 05:30 08/22/17 08/22/17 08/23/17 09:25 09:25 11:45 WBC 6.4 RBC 2.79 L Hgb 8.1 L Hct 23.9 L MCV 86 MCH 28.9 MCHC 33.7 RDW 16.8 H Plt Count 141 L Sodium Potassium Chloride Carbon Dioxide Anion Gap BUN Creatinine Est GFR ( Amer) Est GFR (Non-Af Amer) Glucose Calcium Fluid Albumin 2.0 Fluid LDH 2449 08/23/17 08/24/17 08/24/17 11:45 05:30 05:30 WBC 8.3 RBC 3.59 L Hgb 10.4 L D Hct 30.5 L MCV 85 MCH 28.9 MCHC 34.1 RDW 16.9 H Plt Count 181 Sodium 137.2 Potassium 4.8 Chloride 109 H Carbon Dioxide 18 L Anion Gap 10 BUN 24 H Creatinine 1.58 H 1.48 H Est GFR ( Amer) 54 L 58 L Est GFR (Non-Af Amer) 44 L 48 L Glucose 63 L Calcium 9.1 Fluid Albumin Fluid LDH 08/22/17 09:25 Ascities Fluid AFB Smear Concentration - Final 08/22/17 09:25 Ascities Fluid Acid Fast Bacilli Smear - Final 08/19/17 13:26 Ascities Fluid Gram Stain - Final 08/19/17 13:26 Ascities Fluid Body Fluid Culture - Final NO AEROBIC OR ANAEROBIC ORGANISMS RECOVERED 08/18/17 08/19/17 08/19/17 21:35 03:35 12:33 Creatine Kinase Troponin I < 0.012 < 0.012 < 0.012 08/19/17 18:18 Creatine Kinase 33 L Troponin I Impressions: Lung Scan-VQ NM 08/18/17 15:42 IMPRESSION: There is a low probability of pulmonary embolus. Renal Ultrasound 08/18/17 15:44 IMPRESSION: No significant renal abnormalities were identified. Pelvic ascitic fluid is identified. Other findings as noted above Chest X-Ray 08/20/17 06:00 IMPRESSION: Bandlike atelectasis in the right middle lobe and left retrocardiac region similar compared to 08/18/2017 Paracentesis Ultrasound 08/22/17 09:03 IMPRESSION: Successful ultrasound-guided paracentesis Venous Doppler Study 08/23/17 16:47 IMPRESSION: Positive for deep vein thrombosis in the right common femoral vein with partial nonocclusive thrombus. Assessment & Plan - Diagnosis (1) Septic shock Is this a current diagnosis for this admission?: Yes (2) SBP (spontaneous bacterial peritonitis) Is this a current diagnosis for this admission?: Yes (3) MICHEAL (acute kidney injury) Is this a current diagnosis for this admission?: Yes (4) Metabolic acidosis Is this a current diagnosis for this admission?: Yes (5) Ascites Qualifiers: Ascites type: malignant Qualified Code(s): R18.0 - Malignant ascites Is this a current diagnosis for this admission?: Yes (6) Diabetes mellitus type 2 in nonobese Is this a current diagnosis for this admission?: Yes (7) Hepatitis C Qualifiers: Viral hepatitis chronicity: chronic Hepatic coma status: without hepatic coma Qualified Code(s): B18.2 - Chronic viral hepatitis C Is this a current diagnosis for this admission?: Yes - Time Time Spent with patient: 25-34 minutes - Plan Summary Plan Summary: We will fully anticoagulate the patient. We will consult gastroenterology to evaluate ascites. Peritoneal fluid cytology sent out for evaluation for lympho proliferative disorder. Cultures so far has been negative. I will transition him to oral antibiotics with Bactrim and Flagyl. Continue supportive care. Increase oxycodone.
[2017-08-24 09:26] LABS: AMORPHOUS SEDIMENT,URINE TRACE /HPF; APPEARANCE,URINE CLOUDY; BILIRUBIN,URINE NEGATIVE (NEGATIVE); GLUCOSE, URINE NEGATIVE (NEGATIVE); KETONES,URINE NEGATIVE (NEGATIVE); LEUKOCYTE ESTERASE,URINE SMALL (NEGATIVE); NITRITE,URINE NEGATIVE (NEGATIVE); PROTEIN,URINE 30 mg/dL (NEGATIVE); URINE SPECIFIC GRAVITY 1.014; UROBILINOGEN,URINE NEGATIVE mg/dL (<2.0)
[2017-08-24] MEDS: FUROSEMIDE 40 MG TABLET PO SCH (09:35)
[2017-08-24] MEDS: SPIRONOLACTONE 25 MG TABLET PO SCH (09:36)
[2017-08-24] MEDS: SODIUM BICARBONATE 650 MG TABLET PO SCH ×2 (09:37→22:38)
[2017-08-24] MEDS: SULFAMETHOXAZOLE/TRIMETHOPRIM 800-160 MG TABLET PO SCH ×2 (09:37→22:38)
[2017-08-24] MEDS: ENOXAPARIN SODIUM INJ 100 MG/1 ML DISP.SYRIN SUBCUT SCH ×2 (09:39→22:39)
[2017-08-24] MEDS: TIOTROPIUM BROMIDE DPI 5 CAP/KIT (18 MCG/CAP) IH SCH (09:47)
[2017-08-24] MEDS: GUAIFENESIN 600 MG TABLET.SA PO SCH ×2 (09:50→22:38)
[2017-08-24] MEDS ORDERED: METRONIDAZOLE 500 MG TABLET PO ONE (10:00)
[2017-08-24] MEDS ORDERED: ENOXAPARIN SODIUM INJ 40 MG/0.4 ML DISP.SYRIN SUBCUT SCH (10:00)
--- NOTE | 2017-08-24 10:12 | PDOC CONSULTATION ---
Consultation Consult Date: 08/24/17 Attending physician:: PARMJIT PALMA Consult reason:: new onset ascites, hyperkalemia, renal insufficiency, history of hep C History of Present Illness Admission Date/PCP: 08/18/17 18:53 ANA LICEA MD History of Present Illness: patient is known to my service, patient however has not had a follow up in several years. he has a known history of Hep C, had not been recently treated patient had EGD in 2013 which showed some gastritis, no varices are noted he had a colonoscopy in 2011, that showed a polyp and was due for a colonoscopy this year he does take chronic narcotic use due to back problems however recently had back surgery he presented with new onset ascites, peritoneal fluid is suspicious for lymphocytes he had SBP he had significant renal insufficiency that required Neprhologist Consult he had hyperkalemia that has been corrected he has a documented DVT and needs anticoagulation patient states no blood in stools he likely had decompensation due to his surgery would await on pathology , ? lymphocytic process will need coverage with ongoing antibiotics Past Medical History Cardiac Medical History: Reports: DVT, Hypertension Denies: Coronary Artery Disease, Myocardial Infarction Pulmonary Medical History: Reports: Chronic Obstructive Pulmonary Disease (COPD) Denies: Asthma, Bronchitis, Pneumonia Neurological Medical History: Reports: Other - Left foot drop secondary to previous back surgery Denies: Seizures Endocrine Medical History: Reports: Diabetes Mellitus Type 2 GI Medical History: Reports: Other Musculoskeltal Medical History: Reports: Arthritis - knees/hands, Other - Chronic back pain after a work-related injury in 1983 requiring surgeries Psychiatric Medical History: Denies: Depression Hematology: Denies: Anemia Infectious Medical History: Reports: Hepatitis C Past Surgical History Past Surgical History: Reports: Appendectomy, Herniorrhaphy - 3 times, Orthopedic Surgery - Left rotator cuff surgery, neck fusion, chest surgery due to osteomyelitis, Other - Back surgeries 7 Denies: Pacemaker Social History Lives with: Spouse/Significant other Smoking Status: Former Smoker - [id number] history of smoking Frequency of Alcohol Use: None Hx Recreational Drug Use: No - Advance Directive Resuscitation Status: Full Code Family History Family History: Reviewed & Not Pertinent Parental Family History Reviewed: Yes Children Family History Reviewed: Unknown Sibling(s) Family History Reviewed.: Unknown Medication/Allergy Home Medications: Atorvastatin Calcium [Lipitor 10 mg Tablet] 10 mg PO QHS 08/18/17 Cyclobenzaprine HCl [Flexeril 10 mg Tablet] 10 mg PO QHS 08/18/17 Fentanyl [Duragesic 50 Mcg/Hr Transdermal Patch] 1 each TD Q3D 08/18/17 Insulin Glargine,Hum.rec.anlog [Lantus Insulin Inj 300 Unit/3 ml Pen] 23 unit SUBCUT QHS 08/18/17 Lisinopril [Prinivil] 20 mg PO Q12 08/18/17 Metformin HCl [Metformin HCl ER] 1,000 mg PO BIDACBS 08/18/17 Milk Thistle 2,000 mg PO DAILY 08/18/17 Multivitamin [Tab-A-Za] 1 tab PO DAILY 08/18/17 Omeprazole Magnesium [Prilosec Otc] 20 mg PO DAILY 08/18/17 Oxycodone HCl [Oxy-Ir 5 mg Tablet] 5 mg PO BID@1400,2200 08/18/17 Oxycodone HCl [Oxy-Ir 5 mg Tablet] 10 mg PO DAILY 08/18/17 Tiotropium [place] [Spiriva Handihaler 5 Cap/Kit (18 Mcg/Cap)] 1 cap IH DAILY Allergies/Adverse Reactions: No Known Allergies Allergy (Verified 08/18/17 14:22) Review of Systems Constitutional: PRESENT: night sweats. ABSENT: fever(s), headache(s) Eyes: ABSENT: visual disturbances Ears: ABSENT: hearing changes Nose, Mouth, and Throat: ABSENT: mouth pain Cardiovascular: ABSENT: chest pain, orthropnea Respiratory: ABSENT: dyspnea, hemoptysis Gastrointestinal: PRESENT: heartburn, nausea, vomiting. ABSENT: diarrhea, hematochezia, melena Musculoskeletal: ABSENT: deformity, joint swelling Neurological: ABSENT: syncope, tingling, tremor(s), vertigo Endocrine: ABSENT: polydipsia, polyphagia, polyuria Hematologic/Lymphatic: ABSENT: easy bruising Physical Exam Vital Signs: Temp Pulse Resp BP Pulse Ox 97.7 F 100 16 112/62 96 08/24/17 07:41 08/24/17 07:54 08/24/17 07:54 08/24/17 07:41 08/24/17 07:54 Intake & Output 08/23/17 08/24/17 08/25/17 06:59 06:59 06:59 Intake Total 3525 2351 Output Total 1050 1250 Balance 2475 1101 Weight 108.3 kg 109.6 kg General appearance: PRESENT: mild distress, well-developed, well-nourished Head exam: PRESENT: atraumatic, normocephalic Eye exam: PRESENT: EOMI, PERRLA. ABSENT: nystagmus, periorbital swelling, scleral icterus Mouth exam: PRESENT: moist, neck supple Throat exam: ABSENT: tonsillar exudate, tonsillogmegaly Neck exam: ABSENT: meningismus, tenderness, thyromegaly Respiratory exam: PRESENT: symmetrical, unlabored. ABSENT: tachypnea, wheezes Cardiovascular exam: PRESENT: RRR, +S1, +S2 GI/Abdominal exam: PRESENT: distended, firm, tenderness. ABSENT: rebound Extremities exam: PRESENT: +1 edema Musculoskeletal exam: PRESENT: full ROM Neurological exam: PRESENT: oriented to time, oriented to situation, CN II-XII grossly intact Skin exam: PRESENT: normal color. ABSENT: mottled, pallor, petechiae, urticaria , vesicles Results Laboratory Results: 08/24/17 05:30 08/24/17 05:30 08/22/17 08/22/17 08/23/17 09:25 09:25 11:45 WBC 6.4 RBC 2.79 L Hgb 8.1 L Hct 23.9 L MCV 86 MCH 28.9 MCHC 33.7 RDW 16.8 H Plt Count 141 L Sodium Potassium Chloride Carbon Dioxide Anion Gap BUN Creatinine Est GFR ( Amer) Est GFR (Non-Af Amer) Glucose Calcium Urine Color Urine Appearance Urine pH Ur Specific [place] Urine Protein Urine Glucose (UA) Urine Ketones Urine Blood Urine Nitrite Ur Leukocyte Esterase Urine WBC (Auto) Urine RBC (Auto) Fluid Albumin 2.0 Fluid LDH 2449 08/23/17 08/24/17 08/24/17 11:45 05:30 05:30 WBC 8.3 RBC 3.59 L Hgb 10.4 L D Hct 30.5 L MCV 85 MCH 28.9 MCHC 34.1 RDW 16.9 H Plt Count 181 Sodium 137.2 Potassium 4.8 Chloride 109 H Carbon Dioxide 18 L Anion Gap 10 BUN 24 H Creatinine 1.58 H 1.48 H Est GFR ( Amer) 54 L 58 L Est GFR (Non-Af Amer) 44 L 48 L Glucose 63 L Calcium 9.1 Urine Color Urine Appearance Urine pH Ur Specific [place] Urine Protein Urine Glucose (UA) Urine Ketones Urine Blood Urine Nitrite Ur Leukocyte Esterase Urine WBC (Auto) Urine RBC (Auto) Fluid Albumin Fluid LDH 08/24/17 08:00 WBC RBC Hgb Hct MCV MCH MCHC RDW Plt Count Sodium Potassium Chloride Carbon Dioxide Anion Gap BUN Creatinine Est GFR ( Amer) Est GFR (Non-Af Amer) Glucose Calcium Urine Color YELLOW Urine Appearance CLOUDY Urine pH 5.0 Ur Specific [place] 1.014 Urine Protein 30 H Urine Glucose (UA) NEGATIVE Urine Ketones NEGATIVE Urine Blood LARGE H Urine Nitrite NEGATIVE Ur Leukocyte Esterase SMALL H Urine WBC (Auto) 40 Urine RBC (Auto) >182 Fluid Albumin Fluid LDH 08/22/17 09:25 Ascities Fluid AFB Smear Concentration - Final 08/22/17 09:25 Ascities Fluid Acid Fast Bacilli Smear - Final 08/19/17 13:26 Ascities Fluid Gram Stain - Final 08/19/17 13:26 Ascities Fluid Body Fluid Culture - Final NO AEROBIC OR ANAEROBIC ORGANISMS RECOVERED 08/18/17 08/19/17 08/19/17 21:35 03:35 12:33 Creatine Kinase Troponin I < 0.012 < 0.012 < 0.012 08/19/17 18:18 Creatine Kinase 33 L Troponin I Impressions: Lung Scan-VQ NM 08/18/17 15:42 IMPRESSION: There is a low probability of pulmonary embolus. Renal Ultrasound 08/18/17 15:44 IMPRESSION: No significant renal abnormalities were identified. Pelvic ascitic fluid is identified. Other findings as noted above Chest X-Ray 08/20/17 06:00 IMPRESSION: Bandlike atelectasis in the right middle lobe and left retrocardiac region similar compared to 08/18/2017 Paracentesis Ultrasound 08/22/17 09:03 IMPRESSION: Successful ultrasound-guided paracentesis Venous Doppler Study 08/23/17 16:47 IMPRESSION: Positive for deep vein thrombosis in the right common femoral vein with partial nonocclusive thrombus. Assessment & Plan - Diagnosis (1) Ascites Qualifiers: Ascites type: malignant Qualified Code(s): R18.0 - Malignant ascites Is this a current diagnosis for this admission?: Yes Plan: likely due to cirrhosis would check alpha feto-protein as well continue antibiotics probable SBP ? lyphocytic infiltrate, could that be due to lymphoma fluid control check albumin (2) Hepatitis C Qualifiers: Viral hepatitis chronicity: chronic Hepatic coma status: without hepatic coma Qualified Code(s): B18.2 - Chronic viral hepatitis C Is this a current diagnosis for this admission?: Yes Plan: may not currently be a candidate for treatment until final etiology of the lymphocytic infiltrate can be found check HCV RNA and genotype (3) Right leg swelling Is this a current diagnosis for this admission?: Yes Plan: postive for DVT, will need anticoagulation (4) SBP (spontaneous bacterial peritonitis) Is this a current diagnosis for this admission?: Yes Plan: decompensated cirrhosis, ? due to recent surgery continue antibiotics for 2 weeks ascites management with diuretic ? may need repeat EGD to evaluate for possible varices prior to anticoagulation taking effecyt will speak to patient about this - Time Time Spent: 50 to 70 Minutes
[2017-08-24] MEDS: METRONIDAZOLE 500 MG TABLET PO SCH ×2 (17:47→23:06)
[2017-08-25] MEDS: LANSOPRAZOLE 15 MG TAB.RAP.DR PO SCH ×2 (05:01→17:30)
[2017-08-25] MEDS: OXYCODONE HCL IR 5 MG TABLET PO PRN ×4 (05:01→19:17)
[2017-08-25] MEDS: METRONIDAZOLE 500 MG TABLET PO SCH ×4 (05:01→23:49)
[2017-08-25 06:41] LABS: HEMATOCRIT 31.7 % (37.9-51.0); HEMOGLOBIN 10.7 g/dL (13.5-17.0); HGB HCT DIFFERENCE 0.4; MEAN CORPUSCULAR HEMOGLOBIN 28.6 pg (27.0-33.4); MEAN CORPUSCULAR HGB CONC 33.8 g/dL (32.0-36.0); MEAN CORPUSCULAR VOLUME 85 fl (80-97); RED BLOOD COUNT 3.74 10^6/uL (4.35-5.55); RED CELL DISTRIBUTION WIDTH 16.7 % (11.5-14.0)
[2017-08-25 06:42] LABS: ALANINE AMINOTRANSFERASE 48 U/L (21-72); ALBUMIN 2.6 g/dL (3.5-5.0); ALKALINE PHOSPHATASE 65 U/L (38-126); ANION GAP 8 (5-19); ASPARTATE AMINO TRANSFERASE 104 U/L (17-59); BILIRUBIN,DIRECT 0.4 mg/dL (0.0-0.4); BILIRUBIN,TOTAL 0.4 mg/dL (0.2-1.3); BLOOD UREA NITROGEN 22 mg/dL (7-20); CALCIUM 9.4 mg/dL (8.4-10.2); CARBON DIOXIDE 20 mmol/L (22-30); CHLORIDE 109 mmol/L (98-107); CREATININE RESULT 1.53 mg/dL (0.52-1.25); GLUCOSE 65 mg/dL (75-110); POTASSIUM 4.8 mmol/L (3.6-5.0); SODIUM 136.8 mmol/L (137-145); TOTAL PROTEIN 4.4 g/dL (6.3-8.2)
[2017-08-25 07:00] LABS: BAND NEUTROPHILS % (MANUAL) 7 % (3-5); BASOPHILS % (MANUAL) 0 % (0-2); EOSINOPHILS % (MANUAL) 1 % (0-6); LYMPHOCYTES % (MANUAL) 7 % (13-45); TOTAL CELLS COUNTED 100
[2017-08-25 07:01] LABS: ANISOCYTOSIS 1+; TOXIC VACUOLATION PRESENT
[2017-08-25 08:08] LABS: AMORPHOUS SEDIMENT,URINE TRACE /HPF; APPEARANCE,URINE SLIGHTLY-CLOUDY; BILIRUBIN,URINE NEGATIVE (NEGATIVE); GLUCOSE, URINE NEGATIVE (NEGATIVE); KETONES,URINE NEGATIVE (NEGATIVE); LEUKOCYTE ESTERASE,URINE SMALL (NEGATIVE); NITRITE,URINE NEGATIVE (NEGATIVE); PROTEIN,URINE 30 mg/dL (NEGATIVE); URINE SPECIFIC GRAVITY 1.015; UROBILINOGEN,URINE NEGATIVE mg/dL (<2.0)
--- NOTE | 2017-08-25 09:00 | PDOC PROGRESS REPORT ---
Subjective Progress Note for:: 08/25/17 Subjective:: Pain is better controlled. Lower extremity swelling is less. Denies any diarrhea nausea or vomiting at this time. No chills or fever. BP on the low normal side. Pathology of peritoneal fluid still pending. Patient able to ambulate. Physical Exam Vital Signs: Temp Pulse Resp BP Pulse Ox 97.2 F 91 20 127/70 H 98 08/25/17 07:31 08/25/17 07:31 08/25/17 07:31 08/25/17 07:31 08/25/17 07:31 Intake & Output 08/24/17 08/25/17 08/26/17 06:59 06:59 06:59 Intake Total 2351 2446 Output Total 1250 1050 Balance 1101 1396 Weight 109.6 kg 111.3 kg General appearance: PRESENT: no acute distress, cooperative Head exam: PRESENT: normocephalic Eye exam: PRESENT: EOMI Mouth exam: PRESENT: moist, neck supple Neck exam: ABSENT: JVD Respiratory exam: PRESENT: clear to auscultation vu. ABSENT: rhonchi, wheezes Cardiovascular exam: PRESENT: RRR. ABSENT: gallop GI/Abdominal exam: PRESENT: distended, other - Slight tympany to percussion Extremities exam: PRESENT: +1 edema - Right side Neurological exam: PRESENT: alert, awake, oriented to situation Skin exam: PRESENT: dry, warm. ABSENT: cyanosis Results Laboratory Results: 08/25/17 05:00 08/25/17 05:00 08/24/17 08/25/17 08/25/17 08:00 05:00 05:00 WBC 9.0 RBC 3.74 L Hgb 10.7 L Hct 31.7 L MCV 85 MCH 28.6 MCHC 33.8 RDW 16.7 H Plt Count 177 Seg Neutrophils % Not Reportable Lymphocytes % Not Reportable Monocytes % Not Reportable Eosinophils % Not Reportable Basophils % Not Reportable Absolute Neutrophils Not Reportable Absolute Lymphocytes Not Reportable Absolute Monocytes Not Reportable Absolute Eosinophils Not Reportable Absolute Basophils Not Reportable Sodium 136.8 L Potassium 4.8 Chloride 109 H Carbon Dioxide 20 L Anion Gap 8 BUN 22 H Creatinine 1.53 H Est GFR ( Amer) 56 L Est GFR (Non-Af Amer) 46 L Glucose 65 L Calcium 9.4 Total Bilirubin 0.4 AST 104 H ALT 48 Alkaline Phosphatase 65 Total Protein 4.4 L Albumin 2.6 L Urine Color YELLOW Urine Appearance CLOUDY Urine pH 5.0 Ur Specific [place] 1.014 Urine Protein 30 H Urine Glucose (UA) NEGATIVE Urine Ketones NEGATIVE Urine Blood LARGE H Urine Nitrite NEGATIVE Ur Leukocyte Esterase SMALL H Urine WBC (Auto) 40 Urine RBC (Auto) >182 08/25/17 07:00 WBC RBC Hgb Hct MCV MCH MCHC RDW Plt Count Seg Neutrophils % Lymphocytes % Monocytes % Eosinophils % Basophils % Absolute Neutrophils Absolute Lymphocytes Absolute Monocytes Absolute Eosinophils Absolute Basophils Sodium Potassium Chloride Carbon Dioxide Anion Gap BUN Creatinine Est GFR ( Amer) Est GFR (Non-Af Amer) Glucose Calcium Total Bilirubin AST ALT Alkaline Phosphatase Total Protein Albumin Urine Color YELLOW Urine Appearance SLIGHTLY-CLOUDY Urine pH 5.0 Ur Specific [place] 1.015 Urine Protein 30 H Urine Glucose (UA) NEGATIVE Urine Ketones NEGATIVE Urine Blood LARGE H Urine Nitrite NEGATIVE Ur Leukocyte Esterase SMALL H Urine WBC (Auto) 13 Urine RBC (Auto) 89 08/22/17 09:25 Ascities Fluid Fungal Smear - Final 08/22/17 09:25 Ascities Fluid Fungal Smear - Final 08/22/17 09:25 Ascities Fluid AFB Smear Concentration - Final 08/22/17 09:25 Ascities Fluid Acid Fast Bacilli Smear - Final 08/18/17 08/19/17 08/19/17 21:35 03:35 12:33 Creatine Kinase Troponin I < 0.012 < 0.012 < 0.012 08/19/17 18:18 Creatine Kinase 33 L Troponin I Impressions: Lung Scan-VQ NM 08/18/17 15:42 IMPRESSION: There is a low probability of pulmonary embolus. Renal Ultrasound 08/18/17 15:44 IMPRESSION: No significant renal abnormalities were identified. Pelvic ascitic fluid is identified. Other findings as noted above Chest X-Ray 08/20/17 06:00 IMPRESSION: Bandlike atelectasis in the right middle lobe and left retrocardiac region similar compared to 08/18/2017 Paracentesis Ultrasound 08/22/17 09:03 IMPRESSION: Successful ultrasound-guided paracentesis Venous Doppler Study 08/23/17 16:47 IMPRESSION: Positive for deep vein thrombosis in the right common femoral vein with partial nonocclusive thrombus. Assessment & Plan - Diagnosis (1) Septic shock Is this a current diagnosis for this admission?: Yes (2) SBP (spontaneous bacterial peritonitis) Is this a current diagnosis for this admission?: Yes (3) MICHEAL (acute kidney injury) Is this a current diagnosis for this admission?: Yes (4) Metabolic acidosis Is this a current diagnosis for this admission?: Yes (5) Ascites Qualifiers: Ascites type: malignant Qualified Code(s): R18.0 - Malignant ascites Is this a current diagnosis for this admission?: Yes (6) Diabetes mellitus type 2 in nonobese Is this a current diagnosis for this admission?: Yes (7) Hepatitis C Qualifiers: Viral hepatitis chronicity: chronic Hepatic coma status: without hepatic coma Qualified Code(s): B18.2 - Chronic viral hepatitis C Is this a current diagnosis for this admission?: Yes - Time Time Spent with patient: 25-34 minutes - Plan Summary Plan Summary: Continue antibiotics. Patient's creatinine started to increase, we will continue to monitor. Gastroenterology was consulted. Patient is going for endoscopic studies today. Awaiting biopsy result from [facility]. Continue supportive care.
[2017-08-25] MEDS: SPIRONOLACTONE 25 MG TABLET PO SCH (10:28)
[2017-08-25] MEDS: ENOXAPARIN SODIUM INJ 100 MG/1 ML DISP.SYRIN SUBCUT SCH ×2 (10:28→21:17)
[2017-08-25] MEDS: SULFAMETHOXAZOLE/TRIMETHOPRIM 800-160 MG TABLET PO SCH ×2 (10:29→21:17)
[2017-08-25] MEDS: FUROSEMIDE 40 MG TABLET PO SCH (10:30)
[2017-08-25] MEDS: SODIUM BICARBONATE 650 MG TABLET PO SCH ×2 (10:32→21:17)
[2017-08-25] MEDS: GUAIFENESIN 600 MG TABLET.SA PO SCH ×2 (10:32→21:17)
[2017-08-25] MEDS: TIOTROPIUM BROMIDE DPI 5 CAP/KIT (18 MCG/CAP) IH SCH (10:35)
[2017-08-25] MEDS ORDERED: PROPOFOL INJ 200 MG/20 ML VIAL IV ONE (11:38)
[2017-08-25] MEDS ORDERED: OXYCODONE-ACETAMINOPHEN 5-325 MG TABLET PO PRN ×2 (13:30)
[2017-08-25] MEDS ORDERED: PROMETHAZINE HCL INJ 25 MG/1 ML VIAL IV PRN ×2 (13:30)
[2017-08-25] MEDS ORDERED: FENTANYL CITRATE INJ/PF 100 MCG/2 ML AMPUL IV PRN ×3 (13:30)
[2017-08-25] MEDS ORDERED: MEPERIDINE HCL/PF INJ 25 MG/1 ML DISP.SYRIN IV PRN (13:30)
[2017-08-25] MEDS ORDERED: DIPHENHYDRAMINE HCL 50 MG/ML VIAL IV PRN (13:30)
[2017-08-25] MEDS ORDERED: MORPHINE SULFATE 10 MG/ML INJ IV PRN (13:30)
--- NOTE | 2017-08-25 15:20 | Operative Report ---
Operative Report DATE OF SURGERY: 08/25/17 Operative Report: The risks benefits and alternatives of the procedure explained to the patient in detail and informed consent is obtained.A GIF Olympus video scope was inserted into the patient's mouth and hypopharynx, the esophagus is identified intubated and insufflated ,the scope was then advanced through the esophagus stomach and duodenum, retroflexion maneuver is done ,the esophagus stomach and first and second portions of the duodenum examined PREOPERATIVE DIAGNOSIS: Nausea vomiting. Patient has a history of cirrhosis rule out esophageal varices POSTOPERATIVE DIAGNOSIS: Small areas of irritation in the stomach, gastritis status post biopsy. No esophageal varices noted. OPERATION: EGD with biopsy SURGEON: PARMJIT PALMA ANESTHESIA: LMAC TISSUE REMOVED OR ALTERED: None COMPLICATIONS: None. ESTIMATED BLOOD LOSS: None. INTRAOPERATIVE FINDINGS: As described above. PROCEDURE: Patient tolerated procedure well. No immediate postprocedure complications are noted. Patient was sent back to his room in good condition. Resume diet less than 2 g sodium intake We will wait on biopsies Spoke to the hospitalist, may be having some minimal GI bleeding since starting coagulation, consider IVC filter Paracentesis may need to be done as his ascites keeps accumulating.
[2017-08-25] MEDS: LIDOCAINE 5% (700 MG) TRANSDERMAL ADH..PATCH TP PRN (21:18)
[2017-08-26] MEDS: OXYCODONE HCL IR 5 MG TABLET PO PRN ×4 (03:08→22:09)
[2017-08-26 05:26] LABS: HEMATOCRIT 30.7 % (37.9-51.0); HEMOGLOBIN 10.5 g/dL (13.5-17.0); HGB HCT DIFFERENCE 0.8; MEAN CORPUSCULAR HEMOGLOBIN 28.9 pg (27.0-33.4); MEAN CORPUSCULAR HGB CONC 34.1 g/dL (32.0-36.0); MEAN CORPUSCULAR VOLUME 85 fl (80-97); RED BLOOD COUNT 3.63 10^6/uL (4.35-5.55); RED CELL DISTRIBUTION WIDTH 16.7 % (11.5-14.0); WHITE BLOOD COUNT 8.3 10^3/uL (4.0-10.5)
[2017-08-26] MEDS: LANSOPRAZOLE 15 MG TAB.RAP.DR PO SCH ×2 (05:29→17:33)
[2017-08-26] MEDS: METRONIDAZOLE 500 MG TABLET PO SCH ×3 (05:29→17:34)
[2017-08-26 05:43] LABS: ANION GAP 9 (5-19); BLOOD UREA NITROGEN 21 mg/dL (7-20); CALCIUM 9.3 mg/dL (8.4-10.2); CARBON DIOXIDE 19 mmol/L (22-30); CHLORIDE 107 mmol/L (98-107); GLUCOSE 75 mg/dL (75-110); POTASSIUM 4.7 mmol/L (3.6-5.0); SODIUM 134.5 mmol/L (137-145)
[2017-08-26 10:02] LABS: APPEARANCE,URINE TURBID; BILIRUBIN,URINE NEGATIVE (NEGATIVE); GLUCOSE, URINE NEGATIVE (NEGATIVE); KETONES,URINE NEGATIVE (NEGATIVE); LEUKOCYTE ESTERASE,URINE MODERATE (NEGATIVE); NITRITE,URINE NEGATIVE (NEGATIVE); PROTEIN,URINE 30 mg/dL (NEGATIVE); URIC ACID CRYSTALS,URINE MODERATE /HPF; URINE SPECIFIC GRAVITY 1.016; UROBILINOGEN,URINE NEGATIVE mg/dL (<2.0)
--- NOTE | 2017-08-26 10:15 | PDOC PROGRESS REPORT ---
Subjective Progress Note for:: 08/26/17 Subjective:: Patient denies any melena nor hematochezia nor hematemesis. Brief episode of hematuria yesterday but has resolved. No nausea or vomiting. No chills or fever. No shortness of breath or coughing. Feels generally weak. Physical Exam Vital Signs: Temp Pulse Resp BP Pulse Ox 97.6 F 92 16 122/58 L 98 08/26/17 07:45 08/26/17 09:53 08/26/17 09:53 08/26/17 07:45 08/26/17 09:53 Intake & Output 08/25/17 08/26/17 08/27/17 06:59 06:59 06:59 Intake Total 2446 7420 Output Total 1050 800 Balance 1396 6620 Weight 111.3 kg 112.2 kg General appearance: PRESENT: no acute distress, cooperative Head exam: PRESENT: normocephalic Eye exam: PRESENT: EOMI Mouth exam: PRESENT: moist, neck supple Neck exam: ABSENT: JVD Respiratory exam: PRESENT: clear to auscultation vu. ABSENT: rhonchi, wheezes Cardiovascular exam: PRESENT: RRR. ABSENT: gallop GI/Abdominal exam: PRESENT: distended, hypoactive bowel sounds, other - Slightly tympanitic Extremities exam: PRESENT: +1 edema - Right lower extremity Neurological exam: PRESENT: alert, awake, oriented to situation Skin exam: PRESENT: dry, warm. ABSENT: cyanosis Results Laboratory Results: 08/26/17 05:00 08/26/17 05:00 08/26/17 08/26/17 08/26/17 05:00 05:00 09:13 WBC 8.3 RBC 3.63 L Hgb 10.5 L Hct 30.7 L MCV 85 MCH 28.9 MCHC 34.1 RDW 16.7 H Plt Count 136 L Sodium 134.5 L Potassium 4.7 Chloride 107 Carbon Dioxide 19 L Anion Gap 9 BUN 21 H Creatinine 1.60 H Est GFR ( Amer) 53 L Est GFR (Non-Af Amer) 44 L Glucose 75 Calcium 9.3 Urine Color DARK YELLOW Urine Appearance TURBID Urine pH 5.0 Ur Specific [place] 1.016 Urine Protein 30 H Urine Glucose (UA) NEGATIVE Urine Ketones NEGATIVE Urine Blood LARGE H Urine Nitrite NEGATIVE Ur Leukocyte Esterase MODERATE H Urine WBC (Auto) 55 Urine RBC (Auto) >182 08/22/17 09:25 Ascities Fluid Gram Stain - Final 08/22/17 09:25 Ascities Fluid Body Fluid Culture - Final NO AEROBIC OR ANAEROBIC ORGANISMS RECOVERED 08/18/17 08/19/17 08/19/17 21:35 03:35 12:33 Creatine Kinase Troponin I < 0.012 < 0.012 < 0.012 08/19/17 18:18 Creatine Kinase 33 L Troponin I Impressions: Lung Scan-VQ NM 08/18/17 15:42 IMPRESSION: There is a low probability of pulmonary embolus. Renal Ultrasound 08/18/17 15:44 IMPRESSION: No significant renal abnormalities were identified. Pelvic ascitic fluid is identified. Other findings as noted above Chest X-Ray 08/20/17 06:00 IMPRESSION: Bandlike atelectasis in the right middle lobe and left retrocardiac region similar compared to 08/18/2017 Paracentesis Ultrasound 08/22/17 09:03 IMPRESSION: Successful ultrasound-guided paracentesis Venous Doppler Study 08/23/17 16:47 IMPRESSION: Positive for deep vein thrombosis in the right common femoral vein with partial nonocclusive thrombus. Assessment & Plan - Diagnosis (1) Septic shock Is this a current diagnosis for this admission?: Yes (2) SBP (spontaneous bacterial peritonitis) Is this a current diagnosis for this admission?: Yes (3) MICHEAL (acute kidney injury) Is this a current diagnosis for this admission?: Yes (4) Metabolic acidosis Is this a current diagnosis for this admission?: Yes (5) Ascites Qualifiers: Ascites type: malignant Qualified Code(s): R18.0 - Malignant ascites Is this a current diagnosis for this admission?: Yes (6) Diabetes mellitus type 2 in nonobese Is this a current diagnosis for this admission?: Yes (7) Hepatitis C Qualifiers: Viral hepatitis chronicity: chronic Hepatic coma status: without hepatic coma Qualified Code(s): B18.2 - Chronic viral hepatitis C Is this a current diagnosis for this admission?: Yes - Time Time Spent with patient: 25-34 minutes - Plan Summary Plan Summary: I have explained to the family in length regarding the findings on upper endoscopy, high risk of bleeding, and options for treatment. Case discussed with Dr. Mei vascular surgery who will evaluate the patient. Oncology evaluation was likewise obtained and recommended continued anticoagulation with Lovenox or Eliquis but prefers Eliquis. Dr. Golden who is covering for Dr. Dr. Ackerman will see the patient sometime today. She however does not recommend an IVC filter due to atherogenic and cause further clotting if left alone without anticoagulation. Family has been aware of the recommendations and would want to proceed with anticoagulation. We will change his anticoagulant to Eliquis, monitor hematocrit, and begin physical therapy. We will discontinue Moreno catheter and monitor creatinine.
[2017-08-26] MEDS: FENTANYL 25 MCG/HR PATCH.TD72 TD SCH (10:31)
[2017-08-26] MEDS: SPIRONOLACTONE 25 MG TABLET PO SCH (10:34)
[2017-08-26] MEDS: SULFAMETHOXAZOLE/TRIMETHOPRIM 800-160 MG TABLET PO SCH ×2 (10:35→22:09)
[2017-08-26] MEDS: FUROSEMIDE 40 MG TABLET PO SCH (10:35)
[2017-08-26] MEDS: SODIUM BICARBONATE 650 MG TABLET PO SCH ×2 (10:36→22:08)
[2017-08-26] MEDS: TIOTROPIUM BROMIDE DPI 5 CAP/KIT (18 MCG/CAP) IH SCH (10:36)
[2017-08-26] MEDS: GUAIFENESIN 600 MG TABLET.SA PO SCH ×2 (10:44→22:07)
--- NOTE | 2017-08-26 11:30 | PDOC PROGRESS REPORT ---
Subjective Progress Note for:: 08/26/17 Subjective:: Patient underwent EGD yesterday which he tolerated however early signs of GI bleeding noted biopsies are pending continues to have ascites will need to maximize his diuretic continues to have leak at previous paracentesis site patient seen by Hematology, they was wary of filter placement patient to be started on eliquis patient has cirrhosis and likely will be auto-anticoagulated at some point patient will be at risk for GI bleeding Physical Exam Vital Signs: Temp Pulse Resp BP Pulse Ox 97.6 F 92 16 122/58 L 98 08/26/17 07:45 08/26/17 09:53 08/26/17 09:53 08/26/17 07:45 08/26/17 09:53 Intake & Output 08/25/17 08/26/17 08/27/17 06:59 06:59 06:59 Intake Total 2446 7420 Output Total 1050 800 Balance 1396 6620 Weight 111.3 kg 112.2 kg General appearance: PRESENT: no acute distress, well-developed, well-nourished Head exam: PRESENT: atraumatic, normocephalic Eye exam: PRESENT: EOMI, PERRLA. ABSENT: nystagmus, periorbital swelling Mouth exam: PRESENT: moist, neck supple Throat exam: ABSENT: tonsillar exudate, tonsillogmegaly Neck exam: ABSENT: meningismus, tenderness, thyromegaly Respiratory exam: PRESENT: symmetrical. ABSENT: tachypnea, unlabored, wheezes Cardiovascular exam: PRESENT: RRR, +S1, +S2 GI/Abdominal exam: PRESENT: soft. ABSENT: rebound, rigid, tenderness Extremities exam: ABSENT: joint swelling Musculoskeletal exam: PRESENT: full ROM Neurological exam: PRESENT: oriented to time, oriented to situation Psychiatric exam: PRESENT: appropriate affect Skin exam: PRESENT: normal color. ABSENT: mottled, pallor, petechiae, urticaria , vesicles Results Laboratory Results: 08/26/17 05:00 08/26/17 05:00 08/26/17 08/26/17 08/26/17 05:00 05:00 09:13 WBC 8.3 RBC 3.63 L Hgb 10.5 L Hct 30.7 L MCV 85 MCH 28.9 MCHC 34.1 RDW 16.7 H Plt Count 136 L Sodium 134.5 L Potassium 4.7 Chloride 107 Carbon Dioxide 19 L Anion Gap 9 BUN 21 H Creatinine 1.60 H Est GFR ( Amer) 53 L Est GFR (Non-Af Amer) 44 L Glucose 75 Calcium 9.3 Urine Color DARK YELLOW Urine Appearance TURBID Urine pH 5.0 Ur Specific [place] 1.016 Urine Protein 30 H Urine Glucose (UA) NEGATIVE Urine Ketones NEGATIVE Urine Blood LARGE H Urine Nitrite NEGATIVE Ur Leukocyte Esterase MODERATE H Urine WBC (Auto) 55 Urine RBC (Auto) >182 08/22/17 09:25 Ascities Fluid Gram Stain - Final 08/22/17 09:25 Ascities Fluid Body Fluid Culture - Final NO AEROBIC OR ANAEROBIC ORGANISMS RECOVERED 08/18/17 08/19/17 08/19/17 21:35 03:35 12:33 Creatine Kinase Troponin I < 0.012 < 0.012 < 0.012 08/19/17 18:18 Creatine Kinase 33 L Troponin I Impressions: Lung Scan-VQ NM 08/18/17 15:42 IMPRESSION: There is a low probability of pulmonary embolus. Renal Ultrasound 08/18/17 15:44 IMPRESSION: No significant renal abnormalities were identified. Pelvic ascitic fluid is identified. Other findings as noted above Chest X-Ray 08/20/17 06:00 IMPRESSION: Bandlike atelectasis in the right middle lobe and left retrocardiac region similar compared to 08/18/2017 Paracentesis Ultrasound 08/22/17 09:03 IMPRESSION: Successful ultrasound-guided paracentesis Venous Doppler Study 08/23/17 16:47 IMPRESSION: Positive for deep vein thrombosis in the right common femoral vein with partial nonocclusive thrombus. Assessment & Plan - Diagnosis (1) Ascites Qualifiers: Ascites type: malignant Qualified Code(s): R18.0 - Malignant ascites Is this a current diagnosis for this admission?: Yes Plan: patient still has some loculated pockets of fluid still having leak from the initial paracentesis maximize diuretic therapy ? if patient is candidate for TIPS (2) Hepatitis C Qualifiers: Viral hepatitis chronicity: chronic Hepatic coma status: without hepatic coma Qualified Code(s): B18.2 - Chronic viral hepatitis C Is this a current diagnosis for this admission?: Yes Plan: Currently not a candidate for treatment (3) Right leg swelling Is this a current diagnosis for this admission?: Yes Plan: DVT, needs to be on Eliquis patient is at high risk of GI bleeding however no varices (4) SBP (spontaneous bacterial peritonitis) Is this a current diagnosis for this admission?: Yes Plan: will need prophylactic antibiotic following the resolution of treatment - Time Time Spent with patient: 25-34 minutes
[2017-08-26] MEDS ORDERED: OXYCODONE HCL IR 5 MG TABLET ONE (13:32)
[2017-08-26 16:11] LABS: APPEARANCE,URINE CLOUDY; BILIRUBIN,URINE NEGATIVE (NEGATIVE); GLUCOSE, URINE NEGATIVE (NEGATIVE); KETONES,URINE NEGATIVE (NEGATIVE); LEUKOCYTE ESTERASE,URINE SMALL (NEGATIVE); NITRITE,URINE NEGATIVE (NEGATIVE); PROTEIN,URINE 100 mg/dL (NEGATIVE); URINE SPECIFIC GRAVITY 1.018; UROBILINOGEN,URINE NEGATIVE mg/dL (<2.0)
[2017-08-26 16:34] LABS: PARTIAL THROMBOPLASTIN TIME 33.1 SEC (23.5-35.8); PROTHROMBIN TIME 14.6 SEC (11.4-15.4)
[2017-08-26] MEDS: ALBUMIN HUMAN 50 ML IV SCH (17:34)
[2017-08-26] MEDS: NORMAL SALINE 1000 ML 1,000 ML IV PRN (18:42)
[2017-08-27] MEDS: OXYCODONE HCL IR 5 MG TABLET PO PRN ×5 (02:10→21:38)
[2017-08-27] MEDS: METRONIDAZOLE 500 MG TABLET PO SCH ×4 (02:11→17:31)
[2017-08-27] MEDS: ALBUMIN HUMAN 50 ML IV SCH (05:13)
[2017-08-27] MEDS: LANSOPRAZOLE 15 MG TAB.RAP.DR PO SCH ×2 (05:25→17:31)
[2017-08-27] MEDS: APIXABAN 5 MG TABLET PO SCH ×3 (05:26→21:33)
[2017-08-27 07:06] LABS: HEMATOCRIT 31.4 % (37.9-51.0); HEMOGLOBIN 10.8 g/dL (13.5-17.0); MEAN CORPUSCULAR HGB CONC 34.3 g/dL (32.0-36.0); MEAN CORPUSCULAR VOLUME 85 fl (80-97); RED BLOOD COUNT 3.71 10^6/uL (4.35-5.55); RED CELL DISTRIBUTION WIDTH 17.4 % (11.5-14.0)
[2017-08-27 07:15] LABS: ANION GAP 9 (5-19); BLOOD UREA NITROGEN 23 mg/dL (7-20); CALCIUM 9.3 mg/dL (8.4-10.2); CARBON DIOXIDE 19 mmol/L (22-30); CHLORIDE 106 mmol/L (98-107); CREATININE RESULT 2.22 mg/dL (0.52-1.25); GLUCOSE 80 mg/dL (75-110); SODIUM 134.2 mmol/L (137-145)
[2017-08-27] MEDS ORDERED: NORMAL SALINE 1000 ML 1,000 ML IV PRN (09:08)
--- NOTE | 2017-08-27 09:14 | PDOC PROGRESS REPORT ---
Subjective Progress Note for:: 08/27/17 Subjective:: No melena hematochezia or hematemesis. Noted some scrotal swelling as well. Edema on the right lower extremity less. Patient denies any nausea or vomiting. Oral intake is less. Abdomen remains distended. Denies chills or fever. Refused to remove the indwelling Moreno catheter. Physical Exam Vital Signs: Temp Pulse Resp BP Pulse Ox 97.5 F 98 18 119/76 98 08/27/17 07:55 08/27/17 07:55 08/27/17 07:55 08/27/17 07:55 08/27/17 07:55 Intake & Output 08/26/17 08/27/17 08/28/17 06:59 06:59 06:59 Intake Total 7420 3654 Output Total 800 190 Balance 6620 3464 Weight 112.2 kg General appearance: PRESENT: no acute distress, obese Head exam: PRESENT: normocephalic Eye exam: PRESENT: conjunctiva pale, EOMI Mouth exam: PRESENT: moist, neck supple Respiratory exam: PRESENT: clear to auscultation vu - Anteriorly, unlabored. ABSENT: wheezes Cardiovascular exam: PRESENT: RRR. ABSENT: gallop GI/Abdominal exam: PRESENT: distended, hypoactive bowel sounds Extremities exam: PRESENT: +1 edema Neurological exam: PRESENT: alert, awake, oriented to situation Skin exam: PRESENT: dry, warm. ABSENT: cyanosis Results Laboratory Results: 08/27/17 05:00 08/27/17 05:00 08/26/17 08/26/17 08/27/17 09:13 15:51 05:00 WBC RBC Hgb Hct MCV MCH MCHC RDW Plt Count Sodium 134.2 L Potassium 5.0 Chloride 106 Carbon Dioxide 19 L Anion Gap 9 BUN 23 H Creatinine 2.22 H Est GFR ( Amer) 36 L Est GFR (Non-Af Amer) 30 L Glucose 80 Calcium 9.3 Urine Color DARK YELLOW [place] Urine Appearance TURBID CLOUDY Urine pH 5.0 5.0 Ur Specific [place] 1.016 1.018 Urine Protein 30 H 100 H Urine Glucose (UA) NEGATIVE NEGATIVE Urine Ketones NEGATIVE NEGATIVE Urine Blood LARGE H LARGE H Urine Nitrite NEGATIVE NEGATIVE Ur Leukocyte Esterase MODERATE H SMALL H Urine WBC (Auto) 55 122 Urine RBC (Auto) >182 >182 Stool Occult Blood 08/27/17 08/27/17 05:00 08:16 WBC 9.0 RBC 3.71 L Hgb 10.8 L Hct 31.4 L MCV 85 MCH 29.0 MCHC 34.3 RDW 17.4 H Plt Count 130 L Sodium Potassium Chloride Carbon Dioxide Anion Gap BUN Creatinine Est GFR ( Amer) Est GFR (Non-Af Amer) Glucose Calcium Urine Color Urine Appearance Urine pH Ur Specific [place] Urine Protein Urine Glucose (UA) Urine Ketones Urine Blood Urine Nitrite Ur Leukocyte Esterase Urine WBC (Auto) Urine RBC (Auto) Stool Occult Blood NEGATIVE 08/22/17 09:25 Ascities Fluid Gram Stain - Final 08/22/17 09:25 Ascities Fluid Body Fluid Culture - Final NO AEROBIC OR ANAEROBIC ORGANISMS RECOVERED 08/18/17 08/19/17 08/19/17 21:35 03:35 12:33 Creatine Kinase Troponin I < 0.012 < 0.012 < 0.012 08/19/17 18:18 Creatine Kinase 33 L Troponin I Impressions: Lung Scan-VQ NM 08/18/17 15:42 IMPRESSION: There is a low probability of pulmonary embolus. Renal Ultrasound 08/18/17 15:44 IMPRESSION: No significant renal abnormalities were identified. Pelvic ascitic fluid is identified. Other findings as noted above Chest X-Ray 08/20/17 06:00 IMPRESSION: Bandlike atelectasis in the right middle lobe and left retrocardiac region similar compared to 08/18/2017 Paracentesis Ultrasound 08/22/17 09:03 IMPRESSION: Successful ultrasound-guided paracentesis Venous Doppler Study 08/23/17 16:47 IMPRESSION: Positive for deep vein thrombosis in the right common femoral vein with partial nonocclusive thrombus. Assessment & Plan - Diagnosis (1) Septic shock Is this a current diagnosis for this admission?: Yes (2) SBP (spontaneous bacterial peritonitis) Is this a current diagnosis for this admission?: Yes (3) MICHEAL (acute kidney injury) Is this a current diagnosis for this admission?: Yes (4) Metabolic acidosis Is this a current diagnosis for this admission?: Yes (5) Ascites Qualifiers: Ascites type: malignant Qualified Code(s): R18.0 - Malignant ascites Is this a current diagnosis for this admission?: Yes (6) Diabetes mellitus type 2 in nonobese Is this a current diagnosis for this admission?: Yes (7) Hepatitis C Qualifiers: Viral hepatitis chronicity: chronic Hepatic coma status: without hepatic coma Qualified Code(s): B18.2 - Chronic viral hepatitis C Is this a current diagnosis for this admission?: Yes - Time Time Spent with patient: 25-34 minutes - Plan Summary Plan Summary: I have discussed the case with gastroenterology service and [facility] for possible TIPS. Case was discussed thoroughly with Dr. Naidu. Recommendation was to try large volume paracentesis again and maximize diuretics. Give albumin during the procedure. Increase diuretic subsequently. Monitor creatinine. Continue supportive care. Recheck H&H. Hold Eliquis prior to paracentesis. Also discussed case with oncology service Dr. Golden covering for Dr. Ackerman. Recommendation was Eliquis and the of the abdomen with IV contrast when creatinine is more stable.
[2017-08-27] MEDS: SULFAMETHOXAZOLE/TRIMETHOPRIM 800-160 MG TABLET PO SCH ×2 (09:32→21:36)
[2017-08-27] MEDS: SODIUM BICARBONATE 650 MG TABLET PO SCH ×2 (09:33→21:36)
[2017-08-27] MEDS: GUAIFENESIN 600 MG TABLET.SA PO SCH ×2 (09:35→21:37)
[2017-08-27] MEDS: SPIRONOLACTONE 25 MG TABLET PO SCH (09:35)
[2017-08-27] MEDS: FUROSEMIDE 40 MG TABLET PO SCH (09:35)
[2017-08-27] MEDS: TIOTROPIUM BROMIDE DPI 5 CAP/KIT (18 MCG/CAP) IH SCH (09:36)
[2017-08-27] MEDS: LIDOCAINE 5% (700 MG) TRANSDERMAL ADH..PATCH TP PRN (09:37)
[2017-08-27] MEDS ORDERED: ONDANSETRON HCL INJ/PF 4 MG/2 ML SDV IV PRN (13:21)
[2017-08-27] MEDS ORDERED: ONDANSETRON HCL INJ/PF 4 MG/2 ML SDV ONE (13:21)
[2017-08-28] MEDS: OXYCODONE HCL IR 5 MG TABLET PO PRN ×5 (03:28→22:13)
[2017-08-28] MEDS: METRONIDAZOLE 500 MG TABLET PO SCH ×4 (03:30→17:26)
[2017-08-28] MEDS: LANSOPRAZOLE 15 MG TAB.RAP.DR PO SCH ×2 (05:53→17:26)
[2017-08-28 05:59] LABS: HEMATOCRIT 32.2 % (37.9-51.0); HEMOGLOBIN 10.6 g/dL (13.5-17.0); HGB HCT DIFFERENCE -0.4; MEAN CORPUSCULAR HEMOGLOBIN 28.1 pg (27.0-33.4); MEAN CORPUSCULAR VOLUME 85 fl (80-97); RED BLOOD COUNT 3.78 10^6/uL (4.35-5.55); RED CELL DISTRIBUTION WIDTH 17.4 % (11.5-14.0); WHITE BLOOD COUNT 11.9 10^3/uL (4.0-10.5)
[2017-08-28 06:46] LABS: ANION GAP 13 (5-19); BLOOD UREA NITROGEN 26 mg/dL (7-20); CALCIUM 9.2 mg/dL (8.4-10.2); CARBON DIOXIDE 17 mmol/L (22-30); CHLORIDE 107 mmol/L (98-107); CREATININE RESULT 3.17 mg/dL (0.52-1.25); GLUCOSE 84 mg/dL (75-110); POTASSIUM 5.1 mmol/L (3.6-5.0)
[2017-08-28] MEDS: APIXABAN 5 MG TABLET PO SCH ×2 (09:51→22:34)
[2017-08-28] MEDS ORDERED: LIDOCAINE 1% INJ-PF (10 MG/ML) 30 ML SDV ONE (10:58)
--- NOTE | 2017-08-28 10:58 | PDOC PROGRESS REPORT ---
Subjective Progress Note for:: 08/28/17 Subjective:: Patient's creatinine is increasing. Symptomatically the patient remains the same. No nausea or vomiting this time but had an episode of nausea yesterday. No reported chills or fever nor diarrhea. Abdomen remains distended with leaking on the paracentesis sites. Patient going for therapeutic paracentesis today. Moreno catheter was changed and no evidence of obstruction. No hematuria noted. Urine output is trending down. Physical Exam Vital Signs: Temp Pulse Resp BP Pulse Ox 97.7 F 98 20 115/65 96 08/28/17 08:32 08/28/17 08:32 08/28/17 08:32 08/28/17 08:32 08/28/17 08:32 Intake & Output 08/27/17 08/28/17 08/29/17 06:59 06:59 06:59 Intake Total 3654 2047 Output Total 190 260 Balance 3464 1787 Weight 114.7 kg General appearance: PRESENT: no acute distress, obese Head exam: PRESENT: normocephalic Eye exam: PRESENT: EOMI Mouth exam: PRESENT: moist, neck supple Neck exam: ABSENT: JVD Respiratory exam: PRESENT: decreased breath sounds. ABSENT: rhonchi, wheezes Cardiovascular exam: PRESENT: RRR. ABSENT: gallop GI/Abdominal exam: PRESENT: distended, hypoactive bowel sounds Extremities exam: PRESENT: +1 edema - Bilateral, other - Left lower extremity edema improving however. Neurological exam: PRESENT: alert, awake, oriented to situation Skin exam: PRESENT: dry, warm. ABSENT: cyanosis Results Laboratory Results: 08/28/17 05:30 08/28/17 05:30 08/27/17 08/28/17 08/28/17 10:35 05:30 05:30 WBC 11.9 H RBC 3.78 L Hgb 10.6 L Hct 32.2 L MCV 85 MCH 28.1 MCHC 33.0 RDW 17.4 H Plt Count 92 L Sodium 137.0 Potassium 5.1 H Chloride 107 Carbon Dioxide 17 L Anion Gap 13 BUN 26 H Creatinine 3.17 H Est GFR ( Amer) 24 L Est GFR (Non-Af Amer) 20 L Glucose 84 Calcium 9.2 Ammonia 34.7 H 08/18/17 08/19/17 08/19/17 21:35 03:35 12:33 Creatine Kinase Troponin I < 0.012 < 0.012 < 0.012 08/19/17 18:18 Creatine Kinase 33 L Troponin I Impressions: Lung Scan-VQ NM 08/18/17 15:42 IMPRESSION: There is a low probability of pulmonary embolus. Renal Ultrasound 08/18/17 15:44 IMPRESSION: No significant renal abnormalities were identified. Pelvic ascitic fluid is identified. Other findings as noted above Chest X-Ray 08/20/17 06:00 IMPRESSION: Bandlike atelectasis in the right middle lobe and left retrocardiac region similar compared to 08/18/2017 Paracentesis Ultrasound 08/22/17 09:03 IMPRESSION: Successful ultrasound-guided paracentesis Venous Doppler Study 08/23/17 16:47 IMPRESSION: Positive for deep vein thrombosis in the right common femoral vein with partial nonocclusive thrombus. Assessment & Plan - Diagnosis (1) Septic shock Is this a current diagnosis for this admission?: Yes (2) SBP (spontaneous bacterial peritonitis) Is this a current diagnosis for this admission?: Yes (3) MICHEAL (acute kidney injury) Is this a current diagnosis for this admission?: Yes (4) Metabolic acidosis Is this a current diagnosis for this admission?: Yes (5) Ascites Qualifiers: Ascites type: malignant Qualified Code(s): R18.0 - Malignant ascites Is this a current diagnosis for this admission?: Yes (6) Diabetes mellitus type 2 in nonobese Is this a current diagnosis for this admission?: Yes (7) Hepatitis C Qualifiers: Viral hepatitis chronicity: chronic Hepatic coma status: without hepatic coma Qualified Code(s): B18.2 - Chronic viral hepatitis C Is this a current diagnosis for this admission?: Yes - Time Time Spent with patient: 25-34 minutes - Plan Summary Plan Summary: I am going to discontinue Bactrim and put the patient on doxycycline instead. Continue antibiotics for now. Discontinue Aldactone. Increase intravenous fluid. We will give a dose of Kayexalate as well. Patient is undergoing large volume paracentesis today. We will recheck creatinine in the morning.
[2017-08-28] MEDS ORDERED: SODIUM POLYSTYRENE SULFONATE 15 GM/60 ML PO ONE (10:59)
[2017-08-28] MEDS: SODIUM BICARBONATE 650 MG TABLET PO SCH ×2 (12:41→22:41)
[2017-08-28] MEDS: GUAIFENESIN 600 MG TABLET.SA PO SCH ×2 (12:41→22:41)
[2017-08-28] MEDS: TIOTROPIUM BROMIDE DPI 5 CAP/KIT (18 MCG/CAP) IH SCH (12:41)
[2017-08-28] MEDS: LIDOCAINE 5% (700 MG) TRANSDERMAL ADH..PATCH TP PRN (12:42)
[2017-08-28] MEDS ORDERED: ALBUMIN HUMAN 50 ML IV ONE (13:00)
[2017-08-28] MEDS ORDERED: ALBUMIN HUMAN 50 ML IV SCH (13:00)
--- NOTE | 2017-08-28 19:02 | PDOC TRANSFER SUMMARY ---
General Admission Date/PCP: 08/18/17 18:53 Accepting Facility: [facility] Accepting Physician: Dr. Del Angel/Dr. Naidu Resuscitation Status: Full Code - Transfer Diagnosis (1) Septic shock Is this a current diagnosis for this admission?: Yes (2) SBP (spontaneous bacterial peritonitis) Is this a current diagnosis for this admission?: Yes (3) Lymphoma Is this a current diagnosis for this admission?: Yes (4) MICHEAL (acute kidney injury) Is this a current diagnosis for this admission?: Yes (5) Metabolic acidosis Is this a current diagnosis for this admission?: Yes (6) Ascites Is this a current diagnosis for this admission?: Yes (7) DVT (deep venous thrombosis) Is this a current diagnosis for this admission?: Yes (8) Diabetes mellitus type 2 in nonobese Is this a current diagnosis for this admission?: Yes (9) Hepatitis C Is this a current diagnosis for this admission?: Yes - Transfer Medications Home Medications: Atorvastatin Calcium [Lipitor 10 mg Tablet] 10 mg PO QHS 08/18/17 Cyclobenzaprine HCl [Flexeril 10 mg Tablet] 10 mg PO QHS 08/18/17 Fentanyl [Duragesic 50 Mcg/Hr Transdermal Patch] 1 each TD Q3D 08/18/17 Insulin Glargine,Hum.rec.anlog [Lantus Insulin Inj 300 Unit/3 ml Pen] 23 unit SUBCUT QHS 08/18/17 Lisinopril [Prinivil] 20 mg PO Q12 08/18/17 Metformin HCl [Metformin HCl ER] 1,000 mg PO BIDACBS 08/18/17 Milk Thistle 2,000 mg PO DAILY 08/18/17 Multivitamin [Tab-A-Za] 1 tab PO DAILY 08/18/17 Omeprazole Magnesium [Prilosec Otc] 20 mg PO DAILY 08/18/17 Oxycodone HCl [Oxy-Ir 5 mg Tablet] 5 mg PO BID@1400,2200 08/18/17 Oxycodone HCl [Oxy-Ir 5 mg Tablet] 10 mg PO DAILY 08/18/17 Tiotropium Lyman [Spiriva Handihaler 5 Cap/Kit (18 Mcg/Cap)] 1 cap IH DAILY Transfer Medications: Current Medications Acetaminophen (Tylenol 325 Mg Tablet) 325 mg PO Q4HP PRN PRN Reason: pain or temp greater than 101F Stop: 09/17/17 18:52 Last Admin: 08/19/17 06:52 Dose: 325 mg Apixaban (Eliquis 5 Mg Tablet) 10 mg PO Q12 SAMMIE Stop: 09/25/17 21:59 Last Admin: 08/28/17 09:51 Dose: Not Given Dextrose (Dextrose Inj 50% Syringe (25 Gm/50 Ml)) 12.5 gm IV PRN PRN; Protocol PRN Reason: FOR BG 50-69 IN ALERT PATIENT Stop: 09/17/17 19:28 Dextrose (Dextrose Inj 50% Syringe (25 Gm/50 Ml)) 25 gm IV PRN PRN PRN Reason: Protocol Stop: 09/17/17 19:28 Doxycycline Hyclate (Vibramycin 100 Mg Tablet) 100 mg PO Q12 SAMMIE Stop: 09/04/17 21:59 Fentanyl (Duragesic 25 Mcg/Hr Transdermal Patch) 1 each TD Q3DAYS SAMMIE Stop: 09/02/17 09:59 Last Admin: 08/26/17 10:31 Dose: 1 each Glucagon (Glucagen Inj 1 Mg Vial) 1 mg IM PRN PRN; Protocol PRN Reason: Evaluate for BG < 70 Stop: 09/17/17 19:28 Glucose (Glutose 40% Gel 15 Gm Tube) 15 gm PO PRN PRN; Protocol PRN Reason: FOR BG 50-69 IN ALERT PATIENT Stop: 09/17/17 19:28 Last Admin: 08/24/17 05:34 Dose: 15 gm Glucose (Glutose 40% Gel 15 Gm Tube) 30 gm PO PRN PRN; Protocol PRN Reason: FOR BG < 50 IN ALERT PATIENT Stop: 09/17/17 19:28 Guaifenesin (Mucinex Sr 600 Mg Tablet.Sa) 600 mg PO Q12 SAMMIE Stop: 09/17/17 21:59 Last Admin: 08/28/17 12:41 Dose: 600 mg Sodium Chloride (Nacl 0.9% 1000 Ml Iv Soln) 1,000 mls @ 100 mls/hr IV CONTINUOUS PRN PRN Reason: THIS MED IS NOT "PRN" Stop: 09/17/17 18:52 Albumin Human (Albuminar-25 Rtu Inj 12.5 Gm/50 Ml Premix) 50 mls @ 50 mls/hr IV NOW@0100 ONE Stop: 08/29/17 01:59 Insulin Human Lispro (Humalog Insulin 100 Unit/1 Ml 3 Ml Vial) 0 - 12 unit SUBCUT Q6HP PRN PRN Reason: Protocol Stop: 09/17/17 19:28 Lansoprazole (Prevacid 15 Mg Odt Tablet) 15 mg PO BID@0600,1700 SAMMIE Stop: 09/18/17 05:59 Last Admin: 08/28/17 17:26 Dose: 15 mg Levalbuterol HCl (Xopenex Neb 1.25 Mg/3 Ml Ampul) 1.25 mg NEB RTQ2HP PRN PRN Reason: SHORTNESS OF BREATH Stop: 09/17/17 18:52 Lidocaine (Lidoderm 5% (700 Mg) Transdermal Patch) 2 patch TP Q12HP PRN PRN Reason: FOR HIP PAIN Stop: 09/18/17 09:59 Last Admin: 08/28/17 12:42 Dose: 2 patch Metronidazole (Flagyl 500 Mg Tablet) 500 mg PO Q6 SAMMIE Stop: 08/31/17 17:59 Last Admin: 08/28/17 17:26 Dose: 500 mg Ondansetron HCl (Zofran Inj/Pf 4 Mg/2 Ml Sdv) 4 mg IV Q4HP PRN Stop: 09/26/17 13:20 Last Admin: 08/27/17 13:23 Dose: 4 mg Oxycodone HCl (Oxy-Ir 5 Mg Tablet) 10 mg PO Q4HP PRN PRN Reason: PAIN Stop: 09/02/17 14:16 Last Admin: 08/28/17 17:26 Dose: 10 mg Sodium Bicarbonate (Sodium Bicarbonate 650 Mg Tablet) 650 mg PO Q12 SAMMIE Stop: 09/22/17 21:59 Last Admin: 08/28/17 12:41 Dose: 650 mg Sodium Chloride (Saline Flush 2.5 Ml Monoject Prefil Syrin) 2.5 ml IV Q8 SAMMIE Stop: 09/17/17 21:59 Last Admin: 08/28/17 13:15 Dose: Not Given Tiotropium Lyman (Spiriva Handihaler 5 Cap/Kit (18 Mcg/Cap)) 1 cap IH DAILY SAMMIE Stop: 09/18/17 09:59 Last Admin: 08/28/17 12:41 Dose: 1 cap - Allergies Allergies/Adverse Reactions: No Known Allergies Allergy (Verified 08/18/17 14:22) - Diet/Activity Discharge Diet: Cardiac Discharge Activity: Activity As Tolerated Hospital Course Hospital Course: The patient was admitted to [facility]. The patient was started on broad-spectrum antibiotics to cover for subacute bacterial peritonitis. Patient was referred to nephrology for her renal failure. renal ultrasound was performed showing no significant abnormality but did show ascites. Patient was hydrated with normal saline the patient's creatinine slowly improved. The patient was then referred to interventional radiology for therapeutic and diagnostic paracentesis. Patient had cultures done but essentially were negative other than one blood culture bottle showing gram-positive cocci which is likely a contaminant. Patient's liver function was really never significantly abnormal. Bilirubins were likewise unremarkable as well as coagulation panel with some mild elevation in the PT. However during hydration the patient developed ascites again. Patient was started on diuretics. His course was complicated by deep venous thrombosis of the right lower extremity. Patient was begun on anticoagulation [place]. Peritoneal fluid biopsy showing lymphoid cytology and pathologies were concerned about lymphoma therefore this was sent to [facility] for evaluation and verification of the findings. The patient was referred to gastroenterology who eventually perform upper endoscopy which did not reveal any significant varices but showed vascular ectasias which are high risk for bleeding as oozing was noted by gastroenterology service. Serial hemoglobin hematocrit however was stable. A recommendation of IVC filter was made however upon discussion with vascular surgery and hematology the device is atherogenic and therefore even if placed will still require anticoagulation to treat the acute DVT. The patient continues to have leaking through the paracentesis sites. Gastroenterology recommended TIPS procedure in a tertiary facility. Dr. Naidu from [facility] was consulted who recommended maximizing diuretics and repeat large volume paracentesis. Another repeat paracentesis was performed about 3-1/2 L of fluid was taken and a total of possible 11 L was obtained since the first paracentesis. In the process however we did start of diuretics patient's creatinine started to increase again. Potassium likewise worse mildly elevated. At this point gastroenterology was consulted again at [facility], and eventually accepted the patient. The patient will be admitted to the hospitalist service under Dr. Del Angel who accepted the patient. 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 Physical Exam Vital Signs: Temp Pulse Resp BP Pulse Ox 97.1 F 94 18 97/53 L 98 08/28/17 15:30 08/28/17 15:30 08/28/17 15:30 08/28/17 15:30 08/28/17 15:30 Intake & Output 08/27/17 08/28/17 08/29/17 06:59 06:59 06:59 Intake Total 3654 2047 840 Output Total 190 260 50 Balance 3464 1787 790 Weight 114.7 kg General appearance: PRESENT: no acute distress, obese Head exam: PRESENT: normocephalic Eye exam: PRESENT: EOMI. ABSENT: scleral icterus Mouth exam: PRESENT: moist, neck supple Neck exam: PRESENT: JVD Respiratory exam: PRESENT: clear to auscultation vu. ABSENT: rhonchi, wheezes Cardiovascular exam: PRESENT: RRR. ABSENT: gallop GI/Abdominal exam: PRESENT: distended, hypoactive bowel sounds, soft Extremities exam: PRESENT: +1 edema - Right more than the left Neurological exam: PRESENT: alert, awake, oriented to person, oriented to place , oriented to time, oriented to situation Skin exam: PRESENT: dry, warm. ABSENT: cyanosis Results Laboratory Results: 08/28/17 05:30 08/28/17 05:30 08/28/17 08/28/17 05:30 05:30 WBC 11.9 H RBC 3.78 L Hgb 10.6 L Hct 32.2 L MCV 85 MCH 28.1 MCHC 33.0 RDW 17.4 H Plt Count 92 L Sodium 137.0 Potassium 5.1 H Chloride 107 Carbon Dioxide 17 L Anion Gap 13 BUN 26 H Creatinine 3.17 H Est GFR ( Amer) 24 L Est GFR (Non-Af Amer) 20 L Glucose 84 Calcium 9.2 08/18/17 08/19/17 08/19/17 21:35 03:35 12:33 Creatine Kinase Troponin I < 0.012 < 0.012 < 0.012 08/19/17 18:18 Creatine Kinase 33 L Troponin I Impressions: Lung Scan-VQ NM 08/18/17 15:42 IMPRESSION: There is a low probability of pulmonary embolus. Renal Ultrasound 08/18/17 15:44 IMPRESSION: No significant renal abnormalities were identified. Pelvic ascitic fluid is identified. Other findings as noted above Chest X-Ray 08/20/17 06:00 IMPRESSION: Bandlike atelectasis in the right middle lobe and left retrocardiac region similar compared to 08/18/2017 Venous Doppler Study 08/23/17 16:47 IMPRESSION: Positive for deep vein thrombosis in the right common femoral vein with partial nonocclusive thrombus. Plan Discharge Plan: Transferred to a tertiary facility for further evaluation and management and consideration of TIPS procedure. Time Spent: Less than 30 Minutes
[2017-08-28] MEDS: NORMAL SALINE 1000 ML 1,000 ML IV PRN (20:47)
--- NOTE | 2017-08-28 22:35 | Progress Note ---
Provider Note Provider Note: August 28, 2017: Contacted by nursing staff shortly before 10 PM about restarting patient's Eliquis. Today's morning dose was held due to paracentesis he underwent earlier today. Chart reviewed in detail. Notable findings include steadily decreasing platelet count, now Down to 92,000 this morning, from a high of 386,000 on admission on the . Has been accepted for transfer to [facility], for planned TIPS procedure. Per nursing staff, transfer will likely occur tomorrow morning. At 10:14 PM, patient was discussed in detail with Dr. Almanzar, on-call spreader operator for [place]. [place] [facility] Given the overall clinical picture, she felt the greater risk for this patient was bleeding, and recommended holding patient's p.m. Eliquis dose tonight. Order given to nursing staff. Discussed with day hospitalist.
[2017-08-28] MEDS: DOXYCYCLINE HYCLATE 100 MG TABLET PO SCH (22:41)
[2017-08-29] MEDS: METRONIDAZOLE 500 MG TABLET PO SCH ×5 (00:41→23:59)
[2017-08-29] MEDS ORDERED: ALBUMIN HUMAN 50 ML IV ONE (01:00)
[2017-08-29] MEDS: ALBUMIN HUMAN 50 ML IV SCH ×3 (02:23→04:30)
[2017-08-29] MEDS: OXYCODONE HCL IR 5 MG TABLET PO PRN ×6 (02:54→23:59)
[2017-08-29 04:48] LABS: HEMATOCRIT 27.6 % (37.9-51.0); HEMOGLOBIN 9.3 g/dL (13.5-17.0); HGB HCT DIFFERENCE 0.3; MEAN CORPUSCULAR HEMOGLOBIN 28.6 pg (27.0-33.4); MEAN CORPUSCULAR HGB CONC 33.7 g/dL (32.0-36.0); MEAN CORPUSCULAR VOLUME 85 fl (80-97); RED BLOOD COUNT 3.25 10^6/uL (4.35-5.55); RED CELL DISTRIBUTION WIDTH 17.5 % (11.5-14.0); WHITE BLOOD COUNT 9.5 10^3/uL (4.0-10.5)
[2017-08-29 05:34] LABS: ANION GAP 9 (5-19); BLOOD UREA NITROGEN 29 mg/dL (7-20); CARBON DIOXIDE 22 mmol/L (22-30); CHLORIDE 106 mmol/L (98-107); CREATININE RESULT 4.02 mg/dL (0.52-1.25); GLUCOSE 82 mg/dL (75-110); POTASSIUM 4.6 mmol/L (3.6-5.0)
[2017-08-29] MEDS: LANSOPRAZOLE 15 MG TAB.RAP.DR PO SCH ×2 (06:21→17:00)
[2017-08-29] MEDS: NORMAL SALINE 1000 ML 1,000 ML IV PRN ×2 (07:27→16:25)
[2017-08-29 07:32] LABS: APPEARANCE,URINE CLOUDY; BILIRUBIN,URINE NEGATIVE (NEGATIVE); GLUCOSE, URINE NEGATIVE (NEGATIVE); KETONES,URINE NEGATIVE (NEGATIVE); LEUKOCYTE ESTERASE,URINE MODERATE (NEGATIVE); NITRITE,URINE NEGATIVE (NEGATIVE); PROTEIN,URINE >=500 mg/dL (NEGATIVE); URINE SPECIFIC GRAVITY 1.024; UROBILINOGEN,URINE NEGATIVE mg/dL (<2.0)
[2017-08-29] MEDS: SODIUM BICARBONATE 650 MG TABLET PO SCH ×2 (09:16→21:12)
[2017-08-29] MEDS: TIOTROPIUM BROMIDE DPI 5 CAP/KIT (18 MCG/CAP) IH SCH (09:16)
[2017-08-29] MEDS: GUAIFENESIN 600 MG TABLET.SA PO SCH ×2 (09:16→21:11)
[2017-08-29] MEDS: DOXYCYCLINE HYCLATE 100 MG TABLET PO SCH ×2 (09:16→21:11)
[2017-08-29] MEDS: FENTANYL 25 MCG/HR PATCH.TD72 TD SCH (09:20)
--- NOTE | 2017-08-29 10:28 | PDOC PROGRESS REPORT ---
Subjective Progress Note for:: 08/29/17 Subjective:: Abdomen pressure slightly improved. Leaking much better. No reported chills or fever. No nausea or vomiting. No diarrhea. No shortness of breath or chest pain. Anticoagulants were held due to low platelets. Physical Exam Vital Signs: Temp Pulse Resp BP Pulse Ox 98.1 F 89 20 100/57 L 98 08/29/17 07:07 08/29/17 07:07 08/29/17 07:07 08/29/17 07:07 08/29/17 07:07 Intake & Output 08/28/17 08/29/17 08/30/17 06:59 06:59 06:59 Intake Total 2047 2997 Output Total 260 130 Balance 1787 2867 Weight 114.7 kg 115.9 kg General appearance: PRESENT: no acute distress, cooperative Head exam: PRESENT: normocephalic Eye exam: PRESENT: EOMI Mouth exam: PRESENT: moist, neck supple Neck exam: ABSENT: JVD Respiratory exam: PRESENT: clear to auscultation vu. ABSENT: rhonchi, wheezes Cardiovascular exam: PRESENT: RRR GI/Abdominal exam: PRESENT: distended, hypoactive bowel sounds, soft Extremities exam: PRESENT: +1 edema Neurological exam: PRESENT: alert, awake, oriented to situation Skin exam: PRESENT: dry, warm. ABSENT: cyanosis Results Laboratory Results: 08/29/17 04:30 08/29/17 04:30 08/29/17 08/29/17 08/29/17 04:30 04:30 06:45 WBC 9.5 RBC 3.25 L Hgb 9.3 L Hct 27.6 L MCV 85 MCH 28.6 MCHC 33.7 RDW 17.5 H Plt Count 79 L Sodium 137.0 Potassium 4.6 Chloride 106 Carbon Dioxide 22 Anion Gap 9 BUN 29 H Creatinine 4.02 H Est GFR ( Amer) 18 L Est GFR (Non-Af Amer) 15 L Glucose 82 Calcium 9.0 Urine Color Urine Appearance Urine pH Ur Specific [place] Urine Protein Urine Glucose (UA) Urine Ketones Urine Blood Urine Nitrite Ur Leukocyte Esterase Urine WBC (Auto) Urine RBC (Auto) Stool Occult Blood POSITIVE 08/29/17 06:45 WBC RBC Hgb Hct MCV MCH MCHC RDW Plt Count Sodium Potassium Chloride Carbon Dioxide Anion Gap BUN Creatinine Est GFR ( Amer) Est GFR (Non-Af Amer) Glucose Calcium Urine Color BROWN Urine Appearance CLOUDY Urine pH 5.0 Ur Specific [place] 1.024 Urine Protein >=500 H Urine Glucose (UA) NEGATIVE Urine Ketones NEGATIVE Urine Blood LARGE H Urine Nitrite NEGATIVE Ur Leukocyte Esterase MODERATE H Urine WBC (Auto) >182 Urine RBC (Auto) >182 Stool Occult Blood 08/18/17 08/19/17 08/19/17 21:35 03:35 12:33 Creatine Kinase Troponin I < 0.012 < 0.012 < 0.012 08/19/17 18:18 Creatine Kinase 33 L Troponin I Impressions: Lung Scan-VQ NM 08/18/17 15:42 IMPRESSION: There is a low probability of pulmonary embolus. Renal Ultrasound 08/18/17 15:44 IMPRESSION: No significant renal abnormalities were identified. Pelvic ascitic fluid is identified. Other findings as noted above Chest X-Ray 08/20/17 06:00 IMPRESSION: Bandlike atelectasis in the right middle lobe and left retrocardiac region similar compared to 08/18/2017 Venous Doppler Study 08/23/17 16:47 IMPRESSION: Positive for deep vein thrombosis in the right common femoral vein with partial nonocclusive thrombus. Assessment & Plan - Diagnosis (1) Septic shock Is this a current diagnosis for this admission?: Yes (2) SBP (spontaneous bacterial peritonitis) Is this a current diagnosis for this admission?: Yes (3) MICHEAL (acute kidney injury) Is this a current diagnosis for this admission?: Yes (4) Metabolic acidosis Is this a current diagnosis for this admission?: Yes (5) Ascites Qualifiers: Ascites type: malignant Qualified Code(s): R18.0 - Malignant ascites Is this a current diagnosis for this admission?: Yes (6) DVT (deep venous thrombosis) Is this a current diagnosis for this admission?: Yes (7) Diabetes mellitus type 2 in nonobese Is this a current diagnosis for this admission?: Yes (8) Hepatitis C Qualifiers: Viral hepatitis chronicity: chronic Hepatic coma status: without hepatic coma Qualified Code(s): B18.2 - Chronic viral hepatitis C Is this a current diagnosis for this admission?: Yes - Time Time Spent with patient: 15-24 minutes - Plan Summary Plan Summary: We will check a PT PTT. Continue to monitor hematocrit and creatinine. Continue intravenous fluids and holding diuretics due to increasing creatinine. Awaiting bed at [facility]. Anticoagulants were held.
[2017-08-29 11:24] LABS: PROTHROMBIN TIME 17.7 SEC (11.4-15.4)
[2017-08-29 11:25] LABS: PARTIAL THROMBOPLASTIN TIME 32.4 SEC (23.5-35.8)
--- NOTE | 2017-08-29 13:01 | PDOC PROGRESS REPORT ---
Subjective Progress Note for:: 08/29/17 Subjective:: patient is stable over the weekend continues to have worsening renal function patient' diuretics has been stopped needs fluids however ascites is re-accumulating has been accepted by [facility], bed is not available yet ? candidate for a TIPS has Hep C not previously treated patient able to eat a little Physical Exam Vital Signs: Temp Pulse Resp BP Pulse Ox 98.1 F 89 20 100/57 L 98 08/29/17 07:07 08/29/17 07:07 08/29/17 07:07 08/29/17 07:07 08/29/17 07:07 Intake & Output 08/28/17 08/29/17 08/30/17 06:59 06:59 06:59 Intake Total 2047 2997 Output Total 260 130 Balance 1787 2867 Weight 114.7 kg 115.9 kg General appearance: PRESENT: mild distress Head exam: PRESENT: atraumatic, normocephalic Eye exam: PRESENT: EOMI, PERRLA. ABSENT: nystagmus, periorbital swelling, scleral icterus Mouth exam: PRESENT: moist Throat exam: ABSENT: tonsillar exudate, tonsillogmegaly Neck exam: ABSENT: meningismus, tenderness, thyromegaly Respiratory exam: PRESENT: symmetrical, tachypnea. ABSENT: wheezes Cardiovascular exam: PRESENT: RRR, +S1, +S2 GI/Abdominal exam: PRESENT: ascites, diminished bowel sounds. ABSENT: rebound, rigid Extremities exam: ABSENT: joint swelling Neurological exam: PRESENT: oriented to time, oriented to situation, CN II-XII grossly intact Skin exam: PRESENT: normal color. ABSENT: mottled, pallor, petechiae, urticaria , vesicles Results Laboratory Results: 08/29/17 04:30 08/29/17 04:30 08/29/17 08/29/17 08/29/17 04:30 04:30 06:45 WBC 9.5 RBC 3.25 L Hgb 9.3 L Hct 27.6 L MCV 85 MCH 28.6 MCHC 33.7 RDW 17.5 H Plt Count 79 L Sodium 137.0 Potassium 4.6 Chloride 106 Carbon Dioxide 22 Anion Gap 9 BUN 29 H Creatinine 4.02 H Est GFR ( Amer) 18 L Est GFR (Non-Af Amer) 15 L Glucose 82 Calcium 9.0 Urine Color Urine Appearance Urine pH Ur Specific [place] Urine Protein Urine Glucose (UA) Urine Ketones Urine Blood Urine Nitrite Ur Leukocyte Esterase Urine WBC (Auto) Urine RBC (Auto) Stool Occult Blood POSITIVE 08/29/17 06:45 WBC RBC Hgb Hct MCV MCH MCHC RDW Plt Count Sodium Potassium Chloride Carbon Dioxide Anion Gap BUN Creatinine Est GFR ( Amer) Est GFR (Non-Af Amer) Glucose Calcium Urine Color BROWN Urine Appearance CLOUDY Urine pH 5.0 Ur Specific [place] 1.024 Urine Protein >=500 H Urine Glucose (UA) NEGATIVE Urine Ketones NEGATIVE Urine Blood LARGE H Urine Nitrite NEGATIVE Ur Leukocyte Esterase MODERATE H Urine WBC (Auto) >182 Urine RBC (Auto) >182 Stool Occult Blood 08/18/17 08/19/17 08/19/17 21:35 03:35 12:33 Creatine Kinase Troponin I < 0.012 < 0.012 < 0.012 08/19/17 18:18 Creatine Kinase 33 L Troponin I Impressions: Lung Scan-VQ NM 08/18/17 15:42 IMPRESSION: There is a low probability of pulmonary embolus. Renal Ultrasound 08/18/17 15:44 IMPRESSION: No significant renal abnormalities were identified. Pelvic ascitic fluid is identified. Other findings as noted above Chest X-Ray 08/20/17 06:00 IMPRESSION: Bandlike atelectasis in the right middle lobe and left retrocardiac region similar compared to 08/18/2017 Venous Doppler Study 08/23/17 16:47 IMPRESSION: Positive for deep vein thrombosis in the right common femoral vein with partial nonocclusive thrombus. Assessment & Plan - Diagnosis (1) Ascites Qualifiers: Ascites type: malignant Qualified Code(s): R18.0 - Malignant ascites Is this a current diagnosis for this admission?: Yes Plan: recurrent and suspect may be intractable ? if TIPS may be needed still has leak from previous site diuretics has to be stopped since worsening renal function ? possible early hepatorenal syndrome (2) Hepatitis C Qualifiers: Viral hepatitis chronicity: chronic Hepatic coma status: without hepatic coma Qualified Code(s): B18.2 - Chronic viral hepatitis C Is this a current diagnosis for this admission?: Yes Plan: not a current candidate for treatment (3) Right leg swelling Is this a current diagnosis for this admission?: Yes Plan: has DVT, needs anticoagulation Filter is not recommended [facility] he is at high risk for GI bleeding however he does not currently have varices (4) SBP (spontaneous bacterial peritonitis) Is this a current diagnosis for this admission?: Yes Plan: finish off antibiotics, may need prophylactic antibiotics - Time Time Spent with patient: 25-34 minutes
--- NOTE | 2017-08-29 17:49 | RADIOLOGY REPORT (SQ) ---
EXAM DESCRIPTION: U/S ABD PARACENTESIS COMPLETED DATE/TIME: 08/28/2017 12:23 pm REASON FOR STUDY: large volume paracentesis COMPARISON 08/22/2017 LIMITATIONS: None. PROCEDURE: After obtaining informed consent, the patient was brought to the ultrasound suite. The p rocedure was performed with the patient on a gurney. Ultrasound was used to identify a prominent poc ket of ascites in the midline. An appropriate access site was selected. The patient was prepped and draped in usual sterile fashion. The access site was anesthetized with 10 mL 1% lidocaine. A Safe -T-Centesis needle was advanced into the fluid. After aspiration of fluid the needle, the catheter w as advanced off the needle into the fluid. A total of 3,600 mL of clear, straw-colored fluid was rem ruslan. The patient tolerated the procedure well left the department in satisfactory condition. IMPRESSION: Successful ultrasound-guided paracentesis COMMENT: Patient medication list reviewed: Yes- Quality ID# [id number]:Eligible professional attests to doc umenting in the medical record they obtained, updated, or reviewed the patient's current medications. Quality ID #[id number]: The patient was prepped and draped using maximum sterile barrier technique including cap, mask, sterile gown, sterile gloves, a large sterile sheet, hand hygiene, and 2% Chlorhexidine fo r cutaneous antisepsis. When ultrasound is used, sterile ultrasound techniques are followed requiring sterile gel and sterile probes. Quality ID #[id number]: Final reports for procedures using fluoroscopy that document radiation exposure farhan tonny, or exposure time and number of fluorographic images (if radiation exposure indices are not avail able) TECHNICAL DOCUMENTATION: JOB ID: [id number] [employer]- All Rights Reserved
[2017-08-30] MEDS: NORMAL SALINE 1000 ML 1,000 ML IV PRN ×3 (02:16→18:55)
[2017-08-30 03:56] LABS: APPEARANCE,URINE TURBID; BILIRUBIN,URINE NEGATIVE (NEGATIVE); GLUCOSE, URINE NEGATIVE (NEGATIVE); KETONES,URINE NEGATIVE (NEGATIVE); LEUKOCYTE ESTERASE,URINE MODERATE (NEGATIVE); NITRITE,URINE NEGATIVE (NEGATIVE); PROTEIN,URINE 100 mg/dL (NEGATIVE); URINE SPECIFIC GRAVITY 1.025; UROBILINOGEN,URINE NEGATIVE mg/dL (<2.0)
[2017-08-30 04:26] LABS: HEMATOCRIT 30.7 % (37.9-51.0); HEMOGLOBIN 10.2 g/dL (13.5-17.0); HGB HCT DIFFERENCE -0.1; MEAN CORPUSCULAR HEMOGLOBIN 28.5 pg (27.0-33.4); MEAN CORPUSCULAR HGB CONC 33.3 g/dL (32.0-36.0); MEAN CORPUSCULAR VOLUME 86 fl (80-97); RED BLOOD COUNT 3.59 10^6/uL (4.35-5.55); RED CELL DISTRIBUTION WIDTH 17.9 % (11.5-14.0); WHITE BLOOD COUNT 14.2 10^3/uL (4.0-10.5)
[2017-08-30 04:35] LABS: ANION GAP 15 (5-19); BLOOD UREA NITROGEN 29 mg/dL (7-20); CARBON DIOXIDE 16 mmol/L (22-30); CHLORIDE 106 mmol/L (98-107); CREATININE RESULT 4.95 mg/dL (0.52-1.25); GLUCOSE 82 mg/dL (75-110); POTASSIUM 4.6 mmol/L (3.6-5.0); SODIUM 136.9 mmol/L (137-145)
[2017-08-30] MEDS: OXYCODONE HCL IR 5 MG TABLET PO PRN ×5 (04:46→22:13)
[2017-08-30] MEDS: METRONIDAZOLE 500 MG TABLET PO SCH ×4 (05:13→23:59)
[2017-08-30] MEDS: LANSOPRAZOLE 15 MG TAB.RAP.DR PO SCH ×2 (05:13→18:12)
--- NOTE | 2017-08-30 08:19 | PDOC CONSULTATION ---
Consultation Consult Date: 08/30/17 Attending physician:: JENNIFER LING Consult reason:: Atypical lymphoid proliferation noted on ascites fluid analysis as well as gastric biopsy History of Present Illness Admission Date/PCP: 08/18/17 18:53 Patient complains of: Abdominal bloating, anasarca History of Present Illness: 66-year-old male with known history of recurrent ascites,This is now been ongoing for about 4 weeks, he had a fusion surgery on his back in about 2 weeks after that began having recurrent ascites, he had a large volume paracentesis done on 08/23/2017, cytology from this indicated atypical lymphoid proliferation , he underwent EGD Biopsy of stomach, and this also indicated atypical lymphoid proliferation, currently that is pending at [facility] For second opinion. Unfortunately, he has not had improvement of his liver function, his creatinine is worsened, he has been planned for transfer to tertiary facility for TIPS procedure. Past Medical History Cardiac Medical History: Reports: DVT, Hypertension Denies: Coronary Artery Disease, Myocardial Infarction Pulmonary Medical History: Reports: Chronic Obstructive Pulmonary Disease (COPD) Denies: Asthma, Bronchitis, Pneumonia Neurological Medical History: Reports: Other - Left foot drop secondary to previous back surgery Denies: Seizures Endocrine Medical History: Reports: Diabetes Mellitus Type 2 GI Medical History: Reports: Other Musculoskeltal Medical History: Reports: Arthritis - knees/hands, Other - Chronic back pain after a work-related injury in 1983 requiring surgeries Psychiatric Medical History: Denies: Depression Hematology: Denies: Anemia Infectious Medical History: Reports: Hepatitis C Past Surgical History Past Surgical History: Reports: Appendectomy, Herniorrhaphy - 3 times, Orthopedic Surgery - Left rotator cuff surgery, neck fusion, chest surgery due to osteomyelitis, Other - Back surgeries 7 Denies: Pacemaker Social History Lives with: Spouse/Significant other Smoking Status: Former Smoker - [id number] history of smoking Frequency of Alcohol Use: None Hx Recreational Drug Use: No - Advance Directive Resuscitation Status: Full Code Family History Family History: Reviewed & Not Pertinent Parental Family History Reviewed: Yes Children Family History Reviewed: Yes Sibling(s) Family History Reviewed.: Yes Medication/Allergy Home Medications: Atorvastatin Calcium [Lipitor 10 mg Tablet] 10 mg PO QHS 08/18/17 Cyclobenzaprine HCl [Flexeril 10 mg Tablet] 10 mg PO QHS 08/18/17 Fentanyl [Duragesic 50 Mcg/Hr Transdermal Patch] 1 each TD Q3D 08/18/17 Insulin Glargine,Hum.rec.anlog [Lantus Insulin Inj 300 Unit/3 ml Pen] 23 unit SUBCUT QHS 08/18/17 Lisinopril [Prinivil] 20 mg PO Q12 08/18/17 Metformin HCl [Metformin HCl ER] 1,000 mg PO BIDACBS 08/18/17 Milk Thistle 2,000 mg PO DAILY 08/18/17 Multivitamin [Tab-A-Za] 1 tab PO DAILY 08/18/17 Omeprazole Magnesium [Prilosec Otc] 20 mg PO DAILY 08/18/17 Oxycodone HCl [Oxy-Ir 5 mg Tablet] 5 mg PO BID@1400,2200 08/18/17 Oxycodone HCl [Oxy-Ir 5 mg Tablet] 10 mg PO DAILY 08/18/17 Tiotropium [place] [Spiriva Handihaler 5 Cap/Kit (18 Mcg/Cap)] 1 cap IH DAILY Allergies/Adverse Reactions: No Known Allergies Allergy (Verified 08/18/17 14:22) Review of Systems Constitutional: ABSENT: chills, fever(s), headache(s), weight gain, weight loss Eyes: ABSENT: visual disturbances Ears: ABSENT: hearing changes Cardiovascular: ABSENT: chest pain, dyspnea on exertion, edema, orthropnea, palpitations Respiratory: ABSENT: cough, hemoptysis Gastrointestinal: ABSENT: abdominal pain, constipation, diarrhea, hematemesis, hematochezia, nausea, vomiting Genitourinary: ABSENT: dysuria, hematuria Musculoskeletal: ABSENT: joint swelling Integumentary: ABSENT: rash, wounds Neurological: ABSENT: abnormal gait, abnormal speech, confusion, dizziness, focal weakness, syncope Psychiatric: ABSENT: anxiety, depression, homidical ideation, suicidal ideation Endocrine: ABSENT: cold intolerance, heat intolerance, polydipsia, polyuria Hematologic/Lymphatic: ABSENT: easy bleeding, easy bruising Physical Exam Vital Signs: Temp Pulse Resp BP Pulse Ox 97.5 F 101 H 17 128/59 H 97 08/30/17 05:22 08/30/17 05:22 08/30/17 05:22 08/30/17 05:22 08/30/17 05:22 Intake & Output 08/29/17 08/30/17 08/31/17 06:59 06:59 06:59 Intake Total 2997 3100 Output Total 130 100 Balance 2867 3000 Weight 115.9 kg 115 kg General appearance: PRESENT: no acute distress, well-developed, well-nourished Head exam: PRESENT: atraumatic, normocephalic Eye exam: PRESENT: conjunctiva pink, EOMI, PERRLA. ABSENT: scleral icterus Ear exam: PRESENT: normal external ear exam Mouth exam: PRESENT: moist, tongue midline Neck exam: ABSENT: carotid bruit, JVD, lymphadenopathy, thyromegaly Respiratory exam: PRESENT: clear to auscultation vu. ABSENT: rales, rhonchi, wheezes Cardiovascular exam: PRESENT: RRR. ABSENT: diastolic murmur, rubs, systolic murmur Pulses: PRESENT: normal dorsalis pedis pul Vascular exam: PRESENT: normal capillary refill GI/Abdominal exam: PRESENT: normal bowel sounds, soft. ABSENT: distended, guarding, mass, organolmegaly, rebound, tenderness Rectal exam: PRESENT: deferred Extremities exam: PRESENT: full ROM. ABSENT: calf tenderness, clubbing, pedal edema Neurological exam: PRESENT: alert, awake, oriented to person, oriented to place , oriented to time, oriented to situation, CN II-XII grossly intact. ABSENT: motor sensory deficit Psychiatric exam: PRESENT: appropriate affect, normal mood. ABSENT: homicidal ideation, suicidal ideation Skin exam: PRESENT: dry, intact, warm. ABSENT: cyanosis, rash Results Laboratory Results: 08/30/17 04:00 08/30/17 04:00 08/30/17 08/30/17 08/30/17 03:30 04:00 04:00 WBC 14.2 H RBC 3.59 L Hgb 10.2 L Hct 30.7 L MCV 86 MCH 28.5 MCHC 33.3 RDW 17.9 H Plt Count 133 L Sodium 136.9 L Potassium 4.6 Chloride 106 Carbon Dioxide 16 L Anion Gap 15 BUN 29 H Creatinine 4.95 H Est GFR ( Amer) 14 L Est GFR (Non-Af Amer) 12 L Glucose 82 Calcium 9.0 Urine Color BROWN Urine Appearance TURBID Urine pH 5.0 Ur Specific [place] 1.025 Urine Protein 100 H Urine Glucose (UA) NEGATIVE Urine Ketones NEGATIVE Urine Blood LARGE H Urine Nitrite NEGATIVE Ur Leukocyte Esterase MODERATE H Urine WBC (Auto) >182 Urine RBC (Auto) >182 08/18/17 08/19/17 08/19/17 21:35 03:35 12:33 Creatine Kinase Troponin I < 0.012 < 0.012 < 0.012 08/19/17 18:18 Creatine Kinase 33 L Troponin I Impressions: Lung Scan-VQ NM 08/18/17 15:42 IMPRESSION: There is a low probability of pulmonary embolus. Renal Ultrasound 08/18/17 15:44 IMPRESSION: No significant renal abnormalities were identified. Pelvic ascitic fluid is identified. Other findings as noted above Chest X-Ray 08/20/17 06:00 IMPRESSION: Bandlike atelectasis in the right middle lobe and left retrocardiac region similar compared to 08/18/2017 Venous Doppler Study 08/23/17 16:47 IMPRESSION: Positive for deep vein thrombosis in the right common femoral vein with partial nonocclusive thrombus. Paracentesis Ultrasound 08/28/17 15:45 IMPRESSION: Successful ultrasound-guided paracentesis Assessment & Plan - Diagnosis (1) Lymphoma Qualifiers: Lymphoma type: unspecified type Lymphoma site: extranodal excluding spleen and other solid organs Qualified Code(s): C85.99 - Non-Hodgkin lymphoma, unspecified, extranodal and solid organ sites Is this a current diagnosis for this admission?: Yes Plan: There is currently a concern of lymphoma, we are still awaiting the final [facility] pathology, further treatment will be need to be based on this but given the fact that he is in kidney and liver failure, it would be difficult to undergo therapy now. We will continue to monitor him while here, we will communicate with [facility] once he gets transferred as well. - Time Time Spent: Greater than 70 Minutes Critical Time spent with patient: 35 or more minutes
--- NOTE | 2017-08-30 08:40 | PDOC PROGRESS REPORT ---
Subjective Progress Note for:: 08/30/17 Subjective:: Was called by Dr Newell of pathology gastric biopsies are concerning for possible atypical lymphoid infiltrate suggestive of a lymphoma I was told that there was low grade dysplasia in 2008, [facility] records do not show this as the records only start in 2010 patient apparently had EGD done at that time it is unclear if the biospy report was ever reported to the MD, vs lost to follow up Oncology has seen the patient patient is waiting on transfer to [facility] he also has intractable ascites at this point. this would explain his DVT as well he is on anticoagulation therapy. Physical Exam Vital Signs: Temp Pulse Resp BP Pulse Ox 97.5 F 97 17 128/59 H 97 08/30/17 05:22 08/30/17 07:00 08/30/17 05:22 08/30/17 05:22 08/30/17 05:22 Intake & Output 08/29/17 08/30/17 08/31/17 06:59 06:59 06:59 Intake Total 2997 3100 Output Total 130 100 Balance 2867 3000 Weight 115.9 kg 115 kg General appearance: PRESENT: no acute distress Head exam: PRESENT: atraumatic, normocephalic Eye exam: PRESENT: EOMI, PERRLA. ABSENT: nystagmus, periorbital swelling Mouth exam: PRESENT: neck supple Teeth exam: ABSENT: edentulous Neck exam: ABSENT: meningismus, tenderness, thyromegaly Respiratory exam: PRESENT: symmetrical. ABSENT: tachypnea, wheezes Cardiovascular exam: PRESENT: RRR, rubs, +S2 GI/Abdominal exam: PRESENT: ascites, distended. ABSENT: rebound Extremities exam: PRESENT: +1 edema. ABSENT: joint swelling Musculoskeletal exam: PRESENT: full ROM Neurological exam: PRESENT: alert, awake, oriented to time, oriented to situation, CN II-XII grossly intact Skin exam: PRESENT: normal color. ABSENT: mottled, pallor, petechiae, urticaria , vesicles Results Laboratory Results: 08/30/17 04:00 08/30/17 04:00 08/30/17 08/30/17 08/30/17 03:30 04:00 04:00 WBC 14.2 H RBC 3.59 L Hgb 10.2 L Hct 30.7 L MCV 86 MCH 28.5 MCHC 33.3 RDW 17.9 H Plt Count 133 L Sodium 136.9 L Potassium 4.6 Chloride 106 Carbon Dioxide 16 L Anion Gap 15 BUN 29 H Creatinine 4.95 H Est GFR ( Amer) 14 L Est GFR (Non-Af Amer) 12 L Glucose 82 Calcium 9.0 Urine Color BROWN Urine Appearance TURBID Urine pH 5.0 Ur Specific [place] 1.025 Urine Protein 100 H Urine Glucose (UA) NEGATIVE Urine Ketones NEGATIVE Urine Blood LARGE H Urine Nitrite NEGATIVE Ur Leukocyte Esterase MODERATE H Urine WBC (Auto) >182 Urine RBC (Auto) >182 08/18/17 08/19/17 08/19/17 21:35 03:35 12:33 Creatine Kinase Troponin I < 0.012 < 0.012 < 0.012 08/19/17 18:18 Creatine Kinase 33 L Troponin I Impressions: Lung Scan-VQ NM 08/18/17 15:42 IMPRESSION: There is a low probability of pulmonary embolus. Renal Ultrasound 08/18/17 15:44 IMPRESSION: No significant renal abnormalities were identified. Pelvic ascitic fluid is identified. Other findings as noted above Chest X-Ray 08/20/17 06:00 IMPRESSION: Bandlike atelectasis in the right middle lobe and left retrocardiac region similar compared to 08/18/2017 Venous Doppler Study 08/23/17 16:47 IMPRESSION: Positive for deep vein thrombosis in the right common femoral vein with partial nonocclusive thrombus. Paracentesis Ultrasound 08/28/17 15:45 IMPRESSION: Successful ultrasound-guided paracentesis Assessment & Plan - Diagnosis (1) Ascites Qualifiers: Ascites type: malignant Qualified Code(s): R18.0 - Malignant ascites Is this a current diagnosis for this admission?: Yes Plan: patient has atypical lymphoid infiltrate on his ascites specimen patient does not remember what he was told when he had EGD in 2008 he is unaware of the findings at that time [facility] does not reflect that record he likely has a lymphoma to explian his ascites, DVT oncology following ? if TIPS will help (2) Hepatitis C Qualifiers: Viral hepatitis chronicity: chronic Hepatic coma status: without hepatic coma Qualified Code(s): B18.2 - Chronic viral hepatitis C Is this a current diagnosis for this admission?: Yes Plan: current not a candidate for treatment (3) Right leg swelling Is this a current diagnosis for this admission?: Yes Plan: DVT, on anticoagulation at risk for GI bleeding overall prognosis is very concerning (4) SBP (spontaneous bacterial peritonitis) Is this a current diagnosis for this admission?: Yes - Time Time Spent with patient: 25-34 minutes
[2017-08-30] MEDS: DOXYCYCLINE HYCLATE 100 MG TABLET PO SCH ×2 (10:57→21:15)
[2017-08-30] MEDS: SODIUM BICARBONATE 650 MG TABLET PO SCH ×2 (10:58→21:15)
[2017-08-30] MEDS: GUAIFENESIN 600 MG TABLET.SA PO SCH ×2 (10:58→21:15)
[2017-08-30] MEDS: TIOTROPIUM BROMIDE DPI 5 CAP/KIT (18 MCG/CAP) IH SCH (10:58)
--- NOTE | 2017-08-30 12:28 | PDOC PROGRESS REPORT ---
Subjective Progress Note for:: 08/30/17 Subjective:: Complains of distention of his abdomen secondary to ascites. Physical Exam Vital Signs: Temp Pulse Resp BP Pulse Ox 97 F L 94 20 99/59 L 95 08/30/17 08:00 08/30/17 08:00 08/30/17 08:00 08/30/17 08:00 08/30/17 08:00 Intake & Output 08/29/17 08/30/17 08/31/17 06:59 06:59 06:59 Intake Total 2997 3100 Output Total 130 100 Balance 2867 3000 Weight 115.9 kg 115 kg General appearance: PRESENT: no acute distress Eye exam: PRESENT: conjunctiva pink. ABSENT: scleral icterus Ear exam: PRESENT: normal external ear exam Mouth exam: PRESENT: moist, tongue midline Neck exam: ABSENT: JVD Respiratory exam: PRESENT: clear to auscultation vu. ABSENT: rales, rhonchi, wheezes Cardiovascular exam: PRESENT: RRR. ABSENT: diastolic murmur, rubs, systolic murmur GI/Abdominal exam: PRESENT: ascites, distended, normal bowel sounds, soft, tenderness - Mild epigastric tenderness.. ABSENT: guarding, mass, rebound Extremities exam: PRESENT: pedal edema, +1 edema. ABSENT: calf tenderness, clubbing Neurological exam: PRESENT: alert, awake, oriented to person, oriented to place , oriented to time, oriented to situation, CN II-XII grossly intact. ABSENT: motor sensory deficit Psychiatric exam: PRESENT: appropriate affect Skin exam: PRESENT: dry, intact, warm. ABSENT: cyanosis, rash Results Laboratory Results: 08/30/17 04:00 08/30/17 04:00 08/30/17 08/30/17 08/30/17 03:30 04:00 04:00 WBC 14.2 H RBC 3.59 L Hgb 10.2 L Hct 30.7 L MCV 86 MCH 28.5 MCHC 33.3 RDW 17.9 H Plt Count 133 L Sodium 136.9 L Potassium 4.6 Chloride 106 Carbon Dioxide 16 L Anion Gap 15 BUN 29 H Creatinine 4.95 H Est GFR ( Amer) 14 L Est GFR (Non-Af Amer) 12 L Glucose 82 Calcium 9.0 Urine Color BROWN Urine Appearance TURBID Urine pH 5.0 Ur Specific [place] 1.025 Urine Protein 100 H Urine Glucose (UA) NEGATIVE Urine Ketones NEGATIVE Urine Blood LARGE H Urine Nitrite NEGATIVE Ur Leukocyte Esterase MODERATE H Urine WBC (Auto) >182 Urine RBC (Auto) >182 08/18/17 08/19/17 08/19/17 21:35 03:35 12:33 Creatine Kinase Troponin I < 0.012 < 0.012 < 0.012 08/19/17 18:18 Creatine Kinase 33 L Troponin I Impressions: Lung Scan-VQ NM 08/18/17 15:42 IMPRESSION: There is a low probability of pulmonary embolus. Renal Ultrasound 08/18/17 15:44 IMPRESSION: No significant renal abnormalities were identified. Pelvic ascitic fluid is identified. Other findings as noted above Chest X-Ray 08/20/17 06:00 IMPRESSION: Bandlike atelectasis in the right middle lobe and left retrocardiac region similar compared to 08/18/2017 Venous Doppler Study 08/23/17 16:47 IMPRESSION: Positive for deep vein thrombosis in the right common femoral vein with partial nonocclusive thrombus. Paracentesis Ultrasound 08/28/17 15:45 IMPRESSION: Successful ultrasound-guided paracentesis Assessment & Plan - Diagnosis (1) Septic shock Is this a current diagnosis for this admission?: Yes Plan: Patient had septic shock felt to be secondary to spontaneous bacterial peritonitis. The patient has had negative cultures except for 1 that grew out staph epi. It is presumed that this is a contaminant. Patient's blood pressures have been stable however his renal function is worsening. We will give the patient IV fluids. Patient recently had a large volume paracentesis which may be contributing some to his worsening creatinine. (2) SBP (spontaneous bacterial peritonitis) Is this a current diagnosis for this admission?: Yes Plan: Patient is on Flagyl and doxycycline. Cultures have been negative up today. (3) MICHEAL (acute kidney injury) Is this a current diagnosis for this admission?: Yes Plan: The patient presented with a creatinine greater than 4. He went down as low as 1.5 but is now back up to. We will give IV fluids cautiously. (4) Ascites Qualifiers: Ascites type: malignant Qualified Code(s): R18.0 - Malignant ascites Is this a current diagnosis for this admission?: Yes Plan: Is not clear whether the ascites is from cirrhosis or whether he may have an intraperitoneal lymphoma. Patient is awaiting transfer to [place]. If the patient has refractory ascites he would benefit from a TIPS procedure. Will defer to the counts include 234 beds at the [facility] decision on that. We are going to give IV fluids today because of his renal failure and will need to watch his ascites carefully. (5) Diabetes mellitus type 2 in nonobese Is this a current diagnosis for this admission?: Yes Plan: Continue with sliding scale insulin. (6) Hepatitis C Qualifiers: Viral hepatitis chronicity: chronic Hepatic coma status: without hepatic coma Qualified Code(s): B18.2 - Chronic viral hepatitis C Is this a current diagnosis for this admission?: Yes (7) Lymphoma Qualifiers: Lymphoma type: unspecified type Lymphoma site: extranodal excluding spleen and other solid organs Qualified Code(s): C85.99 - Non-Hodgkin lymphoma, unspecified, extranodal and solid organ sites Is this a current diagnosis for this admission?: Yes Plan: The patient had lymphoid cells on his peritoneal fluid. Is not clear whether this is truly a lymphoma or not. We are waiting for final pathology from [facility]. Oncology has been consulted. Patient will be transferred to the [facility] when a bed becomes available in [place]. (8) DVT (deep venous thrombosis) Is this a current diagnosis for this admission?: Yes Plan: Continue with Eliquis. - Time Time Spent with patient: 25-34 minutes - Inpatient Certification Medical Necessity: Need For IV Fluids, Need for IV Antibiotics - Plan Summary Plan Summary: Patient will be transferred to [place] when a bed becomes available.
[2017-08-30] MEDS: LIDOCAINE 5% (700 MG) TRANSDERMAL ADH..PATCH TP PRN (14:01)
[2017-08-31] MEDS: NORMAL SALINE 1000 ML 1,000 ML IV PRN ×2 (01:42→13:42)
[2017-08-31] MEDS: OXYCODONE HCL IR 5 MG TABLET PO PRN ×3 (04:07→21:27)
[2017-08-31] MEDS: METRONIDAZOLE 500 MG TABLET PO SCH ×3 (05:06→18:38)
[2017-08-31] MEDS: LANSOPRAZOLE 15 MG TAB.RAP.DR PO SCH ×2 (05:06→18:38)
[2017-08-31 05:21] LABS: HEMOGLOBIN 10.1 g/dL (13.5-17.0); HGB HCT DIFFERENCE -0.7; MEAN CORPUSCULAR HGB CONC 32.5 g/dL (32.0-36.0); MEAN CORPUSCULAR VOLUME 86 fl (80-97); RED BLOOD COUNT 3.59 10^6/uL (4.35-5.55); RED CELL DISTRIBUTION WIDTH 17.9 % (11.5-14.0); WHITE BLOOD COUNT 16.1 10^3/uL (4.0-10.5)
[2017-08-31 05:33] LABS: ANION GAP 15 (5-19); BLOOD UREA NITROGEN 30 mg/dL (7-20); CALCIUM 8.8 mg/dL (8.4-10.2); CARBON DIOXIDE 15 mmol/L (22-30); CHLORIDE 107 mmol/L (98-107); CREATININE RESULT 5.15 mg/dL (0.52-1.25); GLUCOSE 69 mg/dL (75-110); POTASSIUM 4.6 mmol/L (3.6-5.0); SODIUM 136.5 mmol/L (137-145)
[2017-08-31 05:56] LABS: BAND NEUTROPHILS % (MANUAL) 1 % (3-5); BASOPHILS % (MANUAL) 0 % (0-2); EOSINOPHILS % (MANUAL) 0 % (0-6); LYMPHOCYTES % (MANUAL) 20 % (13-45); NUCLEATED RED BLOOD CELLS 1 /100 WBC (0); TOTAL CELLS COUNTED 100
[2017-08-31 05:58] LABS: ACANTHOCYTES SLIGHT; ANISOCYTOSIS 1+; POIKILOCYTOSIS SLIGHT; POLYCHROMASIA 1+; TOXIC GRANULATION 1+; TOXIC VACUOLATION PRESENT
[2017-08-31 05:59] LABS: BURR CELLS SLIGHT; OVALOCYTES SLIGHT; SCHISTOCYTES SLIGHT; TEAR DROP CELLS SLIGHT
--- NOTE | 2017-08-31 08:38 | PDOC PROGRESS REPORT ---
Subjective Progress Note for:: 08/31/17 Subjective:: Patient still having generalized anasarca, having a lot of scrotal pain. He had chronic pain medications as an outpatient, I will increase his fentanyl patch 75 mcg today. 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 Further typing is pending. Today I had a long discussion with family at bedside, spent 45 minutes in discussion. Physical Exam Vital Signs: Temp Pulse Resp BP Pulse Ox 97.5 F 96 18 107/55 L 100 08/31/17 05:07 08/31/17 07:00 08/31/17 05:07 08/31/17 05:07 08/31/17 05:07 Intake & Output 08/30/17 08/31/17 09/01/17 06:59 06:59 06:59 Intake Total 3100 2715 Output Total 100 460 Balance 3000 2255 Weight 115 kg 119 kg General appearance: PRESENT: no acute distress, well-developed, well-nourished Head exam: PRESENT: atraumatic, normocephalic Eye exam: PRESENT: conjunctiva pink, EOMI, PERRLA. ABSENT: scleral icterus Ear exam: PRESENT: normal external ear exam Mouth exam: PRESENT: moist, tongue midline Neck exam: ABSENT: carotid bruit, JVD, lymphadenopathy, thyromegaly Respiratory exam: PRESENT: clear to auscultation vu. ABSENT: rales, rhonchi, wheezes Cardiovascular exam: PRESENT: RRR. ABSENT: diastolic murmur, rubs, systolic murmur Pulses: PRESENT: normal dorsalis pedis pul Vascular exam: PRESENT: normal capillary refill GI/Abdominal exam: PRESENT: normal bowel sounds, soft. ABSENT: distended, guarding, mass, organolmegaly, rebound, tenderness Rectal exam: PRESENT: deferred Extremities exam: PRESENT: full ROM. ABSENT: calf tenderness, clubbing, pedal edema Neurological exam: PRESENT: alert, awake, oriented to person, oriented to place , oriented to time, oriented to situation, CN II-XII grossly intact. ABSENT: motor sensory deficit Psychiatric exam: PRESENT: appropriate affect, normal mood. ABSENT: homicidal ideation, suicidal ideation Skin exam: PRESENT: dry, intact, warm. ABSENT: cyanosis, rash Results Laboratory Results: 08/31/17 04:00 08/31/17 04:00 08/31/17 08/31/17 04:00 04:00 WBC 16.1 H RBC 3.59 L Hgb 10.1 L Hct 31.0 L MCV 86 MCH 28.0 MCHC 32.5 RDW 17.9 H Plt Count 161 Seg Neutrophils % Not Reportable Lymphocytes % Not Reportable Monocytes % Not Reportable Eosinophils % Not Reportable Basophils % Not Reportable Absolute Neutrophils Not Reportable Absolute Lymphocytes Not Reportable Absolute Monocytes Not Reportable Absolute Eosinophils Not Reportable Absolute Basophils Not Reportable Sodium 136.5 L Potassium 4.6 Chloride 107 Carbon Dioxide 15 L Anion Gap 15 BUN 30 H Creatinine 5.15 H Est GFR ( Amer) 14 L Est GFR (Non-Af Amer) 11 L Glucose 69 L Calcium 8.8 08/18/17 08/19/17 08/19/17 21:35 03:35 12:33 Creatine Kinase Troponin I < 0.012 < 0.012 < 0.012 08/19/17 18:18 Creatine Kinase 33 L Troponin I Impressions: Lung Scan-VQ NM 08/18/17 15:42 IMPRESSION: There is a low probability of pulmonary embolus. Renal Ultrasound 08/18/17 15:44 IMPRESSION: No significant renal abnormalities were identified. Pelvic ascitic fluid is identified. Other findings as noted above Chest X-Ray 08/20/17 06:00 IMPRESSION: Bandlike atelectasis in the right middle lobe and left retrocardiac region similar compared to 08/18/2017 Venous Doppler Study 08/23/17 16:47 IMPRESSION: Positive for deep vein thrombosis in the right common femoral vein with partial nonocclusive thrombus. 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 Dr. Ruano will start working on this to see if there are beds at [facility] - Time Time Spent with patient: 35 or more minutes Critical Time spent with patient: 35 or more minutes - Inpatient Certification Based on my medical assessment, after consideration of the patient's comorbidities, presenting symptoms, or acuity I expect that the services needed warrant INPATIENT care.: Yes I certify that my determination is in accordance with my understanding of Medicare's requirements for reasonable and necessary INPATIENT services [42 CFR 412.3e].: Yes Medical Necessity: Need Close Monitoring Due to Risk of Patient Decompensation, Risk of Complication if Not Cared For in Hospital
[2017-08-31] MEDS: SODIUM BICARBONATE 650 MG TABLET PO SCH ×2 (09:45→21:11)
[2017-08-31] MEDS: GUAIFENESIN 600 MG TABLET.SA PO SCH ×2 (09:45→21:12)
[2017-08-31] MEDS: DOXYCYCLINE HYCLATE 100 MG TABLET PO SCH ×2 (09:46→21:10)
[2017-08-31] MEDS: TIOTROPIUM BROMIDE DPI 5 CAP/KIT (18 MCG/CAP) IH SCH (09:46)
[2017-08-31] MEDS ORDERED: FENTANYL 75 MCG/HR PATCH.TD72 TD SCH (10:00)
--- NOTE | 2017-08-31 11:02 | PDOC TRANSFER SUMMARY ---
General Admission Date/PCP: 08/18/17 18:53 Transfer Date: 08/31/17 Accepting Facility: [place] Accepting Physician: Dr Alaniz Resuscitation Status: Full Code - Transfer Diagnosis (1) Septic shock Is this a current diagnosis for this admission?: Yes (2) SBP (spontaneous bacterial peritonitis) Is this a current diagnosis for this admission?: Yes Diagnosis Summary: Cultures have been negative. 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 - Transfer Medications Home Medications: Atorvastatin Calcium [Lipitor 10 mg Tablet] 10 mg PO QHS 08/18/17 Cyclobenzaprine HCl [Flexeril 10 mg Tablet] 10 mg PO QHS 08/18/17 Fentanyl [Duragesic 50 Mcg/Hr Transdermal Patch] 1 each TD Q3D 08/18/17 Insulin Glargine,Hum.rec.anlog [Lantus Insulin Inj 300 Unit/3 ml Pen] 23 unit SUBCUT QHS 08/18/17 Lisinopril [Prinivil] 20 mg PO Q12 08/18/17 Metformin HCl [Metformin HCl ER] 1,000 mg PO BIDACBS 08/18/17 Milk Thistle 2,000 mg PO DAILY 08/18/17 Multivitamin [Tab-A-Za] 1 tab PO DAILY 08/18/17 Omeprazole Magnesium [Prilosec Otc] 20 mg PO DAILY 08/18/17 Oxycodone HCl [Oxy-Ir 5 mg Tablet] 5 mg PO BID@1400,2200 08/18/17 Oxycodone HCl [Oxy-Ir 5 mg Tablet] 10 mg PO DAILY 08/18/17 Tiotropium Aurora [Spiriva Handihaler 5 Cap/Kit (18 Mcg/Cap)] 1 cap IH DAILY 09 /28/17 Transfer Medications: Current Medications Acetaminophen (Tylenol 325 Mg Tablet) 325 mg PO Q4HP PRN PRN Reason: pain or temp greater than 101F Stop: 09/17/17 18:52 Last Admin: 08/19/17 06:52 Dose: 325 mg Apixaban (Eliquis 5 Mg Tablet) 10 mg PO Q12 SAMMIE Stop: 09/25/17 21:59 Last Admin: 08/28/17 22:34 Dose: Not Given Dextrose (Dextrose Inj 50% Syringe (25 Gm/50 Ml)) 12.5 gm IV PRN PRN; Protocol PRN Reason: FOR BG 50-69 IN ALERT PATIENT Stop: 09/17/17 19:28 Dextrose (Dextrose Inj 50% Syringe (25 Gm/50 Ml)) 25 gm IV PRN PRN PRN Reason: Protocol Stop: 09/17/17 19:28 Doxycycline Hyclate (Vibramycin 100 Mg Tablet) 100 mg PO Q12 SAMMIE Stop: 09/04/17 21:59 Last Admin: 08/31/17 09:46 Dose: 100 mg Fentanyl (Duragesic 75 Mcg/Hr Transdermal Patch) 1 each TD Q3DAYS [facility] Stop: 09/07/17 09:59 Last Admin: 08/31/17 09:46 Dose: 1 each Glucagon (Glucagen Inj 1 Mg Vial) 1 mg IM PRN PRN; Protocol PRN Reason: Evaluate for BG < 70 Stop: 09/17/17 19:28 Glucose (Glutose 40% Gel 15 Gm Tube) 15 gm PO PRN PRN; Protocol PRN Reason: FOR BG 50-69 IN ALERT PATIENT Stop: 09/17/17 19:28 Last Admin: 08/24/17 05:34 Dose: 15 gm Glucose (Glutose 40% Gel 15 Gm Tube) 30 gm PO PRN PRN; Protocol PRN Reason: FOR BG < 50 IN ALERT PATIENT Stop: 09/17/17 19:28 Guaifenesin (Mucinex Sr 600 Mg Tablet.Sa) 600 mg PO Q12 SAMMIE Stop: 09/17/17 21:59 Last Admin: 08/31/17 09:45 Dose: 600 mg Sodium Chloride (Nacl 0.9% 1000 Ml Iv Soln) 1,000 mls @ 125 mls/hr IV CONTINUOUS PRN PRN Reason: THIS MED IS NOT "PRN" Stop: 09/29/17 12:08 Last Admin: 08/31/17 01:42 Dose: 1,000 ml Insulin Human Lispro (Humalog Insulin 100 Unit/1 Ml 3 Ml Vial) 0 - 12 unit SUBCUT Q6HP PRN PRN Reason: Protocol Stop: 09/17/17 19:28 Lansoprazole (Prevacid 15 Mg Odt Tablet) 15 mg PO BID@0600,1700 SAMMIE Stop: 09/18/17 05:59 Last Admin: 08/31/17 05:06 Dose: 15 mg Levalbuterol HCl (Xopenex Neb 1.25 Mg/3 Ml Ampul) 1.25 mg NEB RTQ2HP PRN PRN Reason: SHORTNESS OF BREATH Stop: 09/17/17 18:52 Lidocaine (Lidoderm 5% (700 Mg) Transdermal Patch) 2 patch TP Q12HP PRN PRN Reason: FOR HIP PAIN Stop: 09/18/17 09:59 Last Admin: 08/30/17 14:01 Dose: 2 patch Metronidazole (Flagyl 500 Mg Tablet) 500 mg PO Q6 SAMMIE Stop: 09/07/17 17:59 Last Admin: 08/31/17 05:06 Dose: 500 mg Ondansetron HCl (Zofran Inj/Pf 4 Mg/2 Ml Sdv) 4 mg IV Q4HP PRN Stop: 09/26/17 13:20 Last Admin: 08/27/17 13:23 Dose: 4 mg Oxycodone HCl (Oxy-Ir 5 Mg Tablet) 10 mg PO Q4HP PRN PRN Reason: PAIN Stop: 09/02/17 14:16 Last Admin: 08/31/17 09:45 Dose: 10 mg Sodium Bicarbonate (Sodium Bicarbonate 650 Mg Tablet) 650 mg PO Q12 SAMMIE Stop: 09/22/17 21:59 Last Admin: 08/31/17 09:45 Dose: 650 mg Sodium Chloride (Saline Flush 2.5 Ml Monoject Prefil Syrin) 2.5 ml IV Q8 SAMMIE Stop: 09/17/17 21:59 Last Admin: 08/31/17 05:06 Dose: Not Given Tiotropium Aurora (Spiriva Handihaler 5 Cap/Kit (18 Mcg/Cap)) 1 cap IH DAILY SAMMIE Stop: 09/18/17 09:59 Last Admin: 08/31/17 09:46 Dose: 1 cap - Allergies Allergies/Adverse Reactions: No Known Allergies Allergy (Verified 08/18/17 14:22) - Diet/Activity Discharge Diet: Cardiac Hospital Course Hospital Course: 66-year-old male with history of hepatitis C, hypertension, chronic back pain, diabetes who had back surgery on July 04. Patient had been doing well except for a spinal week afterwards to approximately 2 weeks prior to admission here had problems with decreased appetite and anorexia. Patient also had some problems with loose stools. The patient also had some subjective fevers and chills and presented to the emergency room was found to be hypotensive with a blood pressure of 70/43. His creatinine at that time was 4.76 with a potassium 6.8. The patient was admitted to the intensive care unit with presumed septic shock from spontaneous bacterial peritonitis. The patient did have ascites. He has a history of hepatitis C but has no previous history of cirrhosis. This was found to be in renal ultrasound was done and evaluation of his renal failure. The patient was treated with Zyvox and Zosyn and started on pressors. The patient was on pressors for a total of 3 days. The patient has been continued on Flagyl. The patient's blood pressure improved and his creatinine also improved down to 1.5. The patient's cultures all have been negative. Is not clear whether he truly had SBP or this is all related to his acute lymphoma. When a paracentesis was done he was noted to have lymphocytes present. This was sent off for further evaluation at [facility] and the preliminary pathology shows a high-grade B cell lymphoma. The patient however has had worsening of his renal function and his creatinine is up to 5.0 today. He has been given IV fluids but continues to have worsening in his renal function. The patient because of the new diagnosis lymphoma and acute renal failure was felt to be better off being a tertiary care center. The case was discussed with Dr. Alaniz at [facility] who graciously accepts the patient in transfer. When he presented he is also noted to have lower extremity edema and ultrasound initially was done and was negative. Later during hospitalization he had worsening of the swelling and a repeat ultrasound was done and he was found to have had a DVT. Patient has been started on Eliquis. The patient did have heme positive stool and GI was consulted. They performed an EGD and he was found to have some minimal gastritis. Of note that this patient had no esophageal varices. It was presumed that he has cirrhosis because of ascites however it is not clear whether the ascites is all just from lymphoma or if he may have a component of cirrhosis given his history of hepatitis C. His liver synthetic function has been adequate. Physical Exam Vital Signs: Temp Pulse Resp BP Pulse Ox 98.1 F 92 18 105/62 94 08/31/17 07:27 08/31/17 07:27 08/31/17 07:27 08/31/17 07:27 08/31/17 07:27 Intake & Output 08/30/17 08/31/17 09/01/17 06:59 06:59 06:59 Intake Total 3100 2715 Output Total 100 460 Balance 3000 2255 Weight 115 kg 119 kg General appearance: PRESENT: no acute distress Eye exam: PRESENT: conjunctiva pink. ABSENT: scleral icterus Mouth exam: PRESENT: moist, tongue midline Neck exam: ABSENT: JVD Respiratory exam: PRESENT: clear to auscultation vu. ABSENT: rales, rhonchi, wheezes Cardiovascular exam: PRESENT: RRR. ABSENT: diastolic murmur, rubs, systolic murmur GI/Abdominal exam: PRESENT: ascites, distended, firm, normal bowel sounds, soft , tenderness - Mild epigastric tenderness.. ABSENT: guarding, mass, organolmegaly, rebound Extremities exam: PRESENT: pedal edema, +1 edema. ABSENT: calf tenderness, clubbing Neurological exam: PRESENT: alert, awake, oriented to person, oriented to place , oriented to time, oriented to situation, CN II-XII grossly intact. ABSENT: motor sensory deficit Psychiatric exam: PRESENT: appropriate affect Skin exam: PRESENT: dry, intact, warm. ABSENT: cyanosis, rash Results Laboratory Results: 08/31/17 04:00 08/31/17 04:00 08/31/17 08/31/17 04:00 04:00 WBC 16.1 H RBC 3.59 L Hgb 10.1 L Hct 31.0 L MCV 86 MCH 28.0 MCHC 32.5 RDW 17.9 H Plt Count 161 Seg Neutrophils % Not Reportable Lymphocytes % Not Reportable Monocytes % Not Reportable Eosinophils % Not Reportable Basophils % Not Reportable Absolute Neutrophils Not Reportable Absolute Lymphocytes Not Reportable Absolute Monocytes Not Reportable Absolute Eosinophils Not Reportable Absolute Basophils Not Reportable Sodium 136.5 L Potassium 4.6 Chloride 107 Carbon Dioxide 15 L Anion Gap 15 BUN 30 H Creatinine 5.15 H Est GFR ( Amer) 14 L Est GFR (Non-Af Amer) 11 L Glucose 69 L Calcium 8.8 08/18/17 08/19/17 08/19/17 21:35 03:35 12:33 Creatine Kinase Troponin I < 0.012 < 0.012 < 0.012 08/19/17 18:18 Creatine Kinase 33 L Troponin I Impressions: Lung Scan-VQ NM 08/18/17 15:42 IMPRESSION: There is a low probability of pulmonary embolus. Renal Ultrasound 08/18/17 15:44 IMPRESSION: No significant renal abnormalities were identified. Pelvic ascitic fluid is identified. Other findings as noted above Chest X-Ray 08/20/17 06:00 IMPRESSION: Bandlike atelectasis in the right middle lobe and left retrocardiac region similar compared to 08/18/2017 Venous Doppler Study 08/23/17 16:47 IMPRESSION: Positive for deep vein thrombosis in the right common femoral vein with partial nonocclusive thrombus. Paracentesis Ultrasound 08/28/17 15:45 IMPRESSION: Successful ultrasound-guided paracentesis Plan Discharge Plan: Patient is to be transferred to [facility]. Dr. Perry is the accepting physician. Time Spent: Greater than 30 Minutes
[2017-08-31 11:52] LABS: ALANINE AMINOTRANSFERASE 42 U/L (21-72); ALBUMIN 2.7 g/dL (3.5-5.0); ALKALINE PHOSPHATASE 60 U/L (38-126); ASPARTATE AMINO TRANSFERASE 95 U/L (17-59); BILIRUBIN,DIRECT 0.5 mg/dL (0.0-0.4); BILIRUBIN,TOTAL 0.5 mg/dL (0.2-1.3); TOTAL PROTEIN 4.2 g/dL (6.3-8.2)
[2017-08-31 23:15] VITALS: BP 110/68
== END 2017-08-31 23:15 | disposition short-term general hospital (02) | DRG 871 ==
LOC: ER 14:12 → UNDOADMIN 18:51 → EH 18:51 → ICU 21:10 → 3W 08-21 18:54
PROVIDERS: ADMIT Family Medicine; ATTEND Family Medicine
PROC: 02HV33Z Insertion of Infusion Device into Superior Vena Cava, Percutaneous Approach (ICD-10-PCS; principal; 2017-08-18)
PROC: 0W9G3ZX Drainage of Peritoneal Cavity, Percutaneous Approach, Diagnostic (ICD-10-PCS; 2017-08-19)
PROC: BW40ZZZ Ultrasonography of Abdomen (ICD-10-PCS; 2017-08-19)
PROC: 0W9G3ZX Drainage of Peritoneal Cavity, Percutaneous Approach, Diagnostic (ICD-10-PCS; 2017-08-22)
PROC: BW40ZZZ Ultrasonography of Abdomen (ICD-10-PCS; 2017-08-22)
PROC: 0DD68ZX Extraction of Stomach, Via Natural or Artificial Opening Endoscopic, Diagnostic (ICD-10-PCS; 2017-08-25)
PROC: 0W9G3ZZ Drainage of Peritoneal Cavity, Percutaneous Approach (ICD-10-PCS; 2017-08-28)
PROC: BW40ZZZ Ultrasonography of Abdomen (ICD-10-PCS; 2017-08-28)
DX: A41.9 Sepsis, unspecified organism (principal); N17.0 Acute kidney failure with tubular necrosis; K65.2 Spontaneous bacterial peritonitis; J18.9 Pneumonia, unspecified organism; R65.21 Severe sepsis with septic shock; K76.7 Hepatorenal syndrome; R18.0 Malignant ascites; C83.50 Lymphoblastic (diffuse) lymphoma, unspecified site; I82.411 Acute embolism and thrombosis of right femoral vein; E87.2 Acidosis; I95.89 Other hypotension; E87.5 Hyperkalemia; B18.2 Chronic viral hepatitis C; I10 Essential (primary) hypertension; E11.649 Type 2 diabetes mellitus with hypoglycemia without coma; D64.9 Anemia, unspecified; K74.60 Unspecified cirrhosis of liver; J44.9 Chronic obstructive pulmonary disease, unspecified; E88.09 Other disorders of plasma-protein metabolism, not elsewhere classified; B96.89 Other specified bacterial agents as the cause of diseases classified elsewhere; E86.0 Dehydration; M21.372 Foot drop, left foot; G90.9 Disorder of the autonomic nervous system, unspecified; M19.042 Primary osteoarthritis, left hand; M19.041 Primary osteoarthritis, right hand; M17.0 Bilateral primary osteoarthritis of knee; R06.6 Hiccough; M54.9 Dorsalgia, unspecified; Z79.84 Long term (current) use of oral hypoglycemic drugs; Z79.4 Long term (current) use of insulin; Z79.891 Long term (current) use of opiate analgesic; Z79.51 Long term (current) use of inhaled steroids; Z79.899 Other long term (current) drug therapy; Z87.891 Personal history of nicotine dependence; Z86.718 Personal history of other venous thrombosis and embolism; Z75.1 Person awaiting admission to adequate facility elsewhere
CPT/HCPCS: 36415; 43239; 49083; 71010; 740; 76770; 78580; 80048; 80053; 80076; 81001; 82040; 82042; 82140; 82272; 82550; 82565; 82803; 82962; 83605; 83615; 83690; 83735; 83880; 84100; 84484; 85025; 85027; 85362; 85384; 85610; 85730; 86850; 86900; 86901; 87015; 87040; 87070; 87075; 87077; 87086; 87101; 87116; 87186; 87205; 87206; 87493; 88184; 88185; 88233; 88262; 88305; 88341; 88342; 89050; 93005; 93010; 93306; 93971; 94640; 94799; 96365; 99285; A9270-GY; A9540; C1751; J0610; J1644; J1650; J1940; J2405; J2543; J2704; J3475; J3490; J7030; J7060; J7620; P9047; Q9969